=== PATIENT | female | born 1965 | race Caucasian/White ===

== ENCOUNTER → 2020-04-22 08:16 | Outpatient (CLI) | payer OTHER, SELFPAY ==
--- NOTE | ~2020-04-22 | MM_ITS ---
EXAMINATION: MM screening ricky BI w manuel HISTORY: Screening mammogram TECHNIQUE: Craniocaudal and mediolateral oblique 3-D tomosynthesis images were obtained and synthetic 2-D images were generated. Bilateral rotated lateral CC views CAD analysis was submitted and interpr eted. COMPARISON: 03/16/2019 diagnostic right digital mammogram and complete right breast ultrasound 8. 03/01/2019 bilateral digital screening mammogram 01/28/2018 diagnostic right digital mammogram and complete right breast ultrasound 01/23/2018, 01/04/2017, 12/16/2015 bilateral digital screening mammogram examinations BREAST PARENCHYMAL COMPOSITION: The breasts are heterogeneously dense, which may obscure small masses . FINDINGS: Approximately 2 cm mass in the inner aspect of the mid outer right breast, with halo sign, very possibly a cyst. Recommend diagnostic right mammogram and right breast ultrasound examination. Otherwise there is no evidence of suspicious mass, calcification, or architectural distortion to sugg est malignancy in either breast. There has been no suspicious interval change. IMPRESSION: 1. Approximately 2 cm probable cyst of the inner aspect of the outer mid right breast 2. Diagnostic right mammogram and right breast ultrasound examination are recommended. BI-RADS Category 0: Incomplete: Needs additional imaging evaluation. Reviewed, dictated and finalized at location A. CE CLERK IMPRESSION: 1. Approximately 2 cm probable cyst of the inner aspect of the outer mid right breast 2. Diagnostic right mammogram and right breast ultrasound examination are recom mended. BI-RADS Category 0: Incomplete: Needs additional imaging evaluation.
== END ==
PROVIDERS: PCP Family Medicine; Visit Provider Student in an Organized Health Care Education/Training Program
DX: Z12.31 Encounter for screening mammogram for malignant neoplasm of breast (principal); R92.8 Other abnormal and inconclusive findings on diagnostic imaging of breast
CPT/HCPCS: 77063; 77067

== ENCOUNTER → 2020-05-11 08:16 | Outpatient (CLI) | payer OTHER, SELFPAY ==
--- NOTE | ~2020-05-11 | MMUS_ITS ---
EXAMINATION: MM diagnostic mammo unilat RT, US breast RT complete HISTORY: Follow-up right breast mass TECHNIQUE: Additional 3-D tomosynthesis images of the right breast were performed and synthetic 2-D i mages were generated. CAD analysis was submitted and interpreted. High resolution right breast ultras ound was performed. COMPARISON: 04/22/2020 BREAST PARENCHYMAL COMPOSITION: The breasts are heterogenously dense, which may obscure small masses. FINDINGS: MAMMOGRAPHIC FINDINGS: There is a 2.3 cm mass in the upper outer quadrant of the right breast, middle third. No suspicious c alcifications or architectural distortion. ULTRASOUND: Right breast ultrasound: At 12:00, 1 cm from the nipple, there is a 3 mm cyst. At 6:00, 3 cm from the nipple, there is a 5 mm cyst. At 10:00, 4 cm from the nipple, there is a 7 mm complicated cyst. At 1 1:00, 4 cm from the nipple there is a 2.1 cm cyst. There the areola there is a 4 mm oval hypoechoic m ass with low level internal echoes, likely complicated cyst. IMPRESSION: 1. Probable benign right breast masses. 2. Recommend 6 month follow-up right breast ultrasound BI-RADS category 3, probably benign findings. Reviewed, dictated and finalized at location A. IMPRESSION: 1. Probable benign right breast masses. 2. Recommend 6 month follow-up right breast ultrasound BI-RADS category 3, probably benign findings.
== END ==
PROVIDERS: PCP Family Medicine; Visit Provider Student in an Organized Health Care Education/Training Program
DX: R92.8 Other abnormal and inconclusive findings on diagnostic imaging of breast (principal)
CPT/HCPCS: 76641; 77065

== ENCOUNTER → 2020-11-04 09:08 | Outpatient (CLI) | payer OTHER, SELFPAY ==
--- NOTE | ~2020-11-04 | US_ITS ---
EXAMINATION: US pelvic complete w TV DATE: 11/04/2020 09:34 INDICATION: Pelvic and perineal pain. Left lower quadrant pain. Comparison:Ultrasound dated 07/31/2018 TECHNIQUE: Multiple transabdominal and endovaginal sonographic images of the pelvis performed. FINDINGS: The uterus measures 8.4 x 4.7 x 5.2 cm. Uterus contains fibroids, largest measuring 3.4 cm. The endometrial complex measures 5 mm. There is fluid in the endometrium with echogenic debris. The right ovary measures 3.2 x 1.5 x 1.7 cm and the left ovary measures 2.6 x 1.4 x 1.9 cm. There ar e small follicles in each ovary. Normal doppler signal in both ovaries. There is no free fluid in the pelvis. There are no abnormal masses seen on either side. IMPRESSION: 1. Complex fluid in the endometrium without significant endometrial thickening, nonspecific. 2: Uterine fibroids, largest measuring up to 3.4 cm. Reviewed, dictated and finalized at location A.
== END ==
PROVIDERS: PCP Family Medicine; Visit Provider Student in an Organized Health Care Education/Training Program
DX: R10.2 Pelvic and perineal pain (principal); D25.9 Leiomyoma of uterus, unspecified
CPT/HCPCS: 76830; 76856

== ENCOUNTER → 2020-11-13 14:14 | Outpatient (CLI) | payer OTHER, SELFPAY ==
--- NOTE | ~2020-11-13 | US_ITS ---
US breast RT complete DATE: 11/13/2020 14:56 INDICATION: 6 month follow up of probable benign breast lesions TECHNIQUE: Real time imaging of complete right breast COMPARISON: 05/11/2020 Diagnostic right mammogram and complete right breast ultrasound FINDINGS: 12:00 1 cm from nipple: 8 x 8.2 x 7.7 mm simple cyst 10:00 4 cm from nipple: 5.7 x 5.5 x 5.8 mm cyst 11:00 4 cm from nipple: 8.6 x 7.3 x 9.3 mm cyst Subareolar 3.6 x 3.4 cyst No suspicious mass or shadowing is detected. IMPRESSION: BIRADS Category 2: Benign RECOMMENDATION: Routine mammographic screening Reviewed, dictated and finalized at Location A. Reviewed, dictated and finalized at location A.
== END ==
PROVIDERS: Visit Provider Student in an Organized Health Care Education/Training Program
DX: R92.8 Other abnormal and inconclusive findings on diagnostic imaging of breast (principal)
CPT/HCPCS: 76641

== ENCOUNTER → 2020-12-29 14:09 | Outpatient (CLI) | payer OTHER, SELFPAY ==
--- NOTE | ~2020-12-29 | US_ITS ---
EXAMINATION: US thyroid EXAM DATE: 12/29/2020 14:21 INDICATION: Nontoxic goiter, unspecified TECHNIQUE: Multiple grayscale and Doppler images of the thyroid were obtained (by a technologist who performed the scan) and subsequently reviewed. Individual nodules and recommendations may be reporte d in accordance with TI-RADS system as designated by the 2017 ACR White Paper TI-RADS committee. The re is no prior study for comparison. FINDINGS: The right thyroid lobe measures 4.4 x 1.8 x 1.8 cm, the left measuring 4.4 x 1.7 x 1.5 cm. There is h omogeneous thyroid parenchyma with expected amount of vascularity. No focal nodules identified. IMPRESSION: 1. Mild thyromegaly. Reviewed, dictated and finalized at location A. IMPRESSION: 1. Mild thyromegaly.
== END ==
PROVIDERS: PCP Family Medicine; Visit Provider Family Medicine
DX: E04.9 Nontoxic goiter, unspecified (principal)
CPT/HCPCS: 76536

== ENCOUNTER → 2021-05-28 17:41 | Outpatient (CLI) | payer OTHER, SELFPAY ==
--- NOTE | ~2021-05-28 | MM_ITS ---
EXAMINATION: MM screening ricky BI w manuel HISTORY: Screening TECHNIQUE: Craniocaudal and mediolateral oblique 3-D tomosynthesis images were obtained and synthetic 2-D images were generated. CAD analysis was submitted and interpreted. COMPARISON: Comparison to multiple prior studies sequentially, with oldest reviewed study dated 12/27. BREAST PARENCHYMAL COMPOSITION: The breasts are heterogeneously dense, which may obscure small masses . FINDINGS: There is no evidence of suspicious mass, calcification, or architectural distortion to sugg est malignancy in either breast. There has been no suspicious interval change. IMPRESSION: 1. No mammographic evidence of malignancy. 2. Recommend routine screening mammography in one year. BI-RADS Category 1: Negative Reviewed, dictated and finalized at location A.
== END ==
PROVIDERS: PCP Family Medicine; Visit Provider Student in an Organized Health Care Education/Training Program
DX: Z12.31 Encounter for screening mammogram for malignant neoplasm of breast (principal)
CPT/HCPCS: 77063; 77067

== ENCOUNTER → 2022-02-19 13:42 | Outpatient (CLI) | payer OTHER, SELFPAY ==
--- NOTE | ~2022-02-19 | XR_ITS ---
Clinical Indication: Chest wall pain PA and lateral views of the chest: Comparison: 02/01/2015 Findings: The lungs are clear, without evidence of focal consolidation or pleural effusion. Cardiome diastinal silhouette is within normal limits. Bones and soft tissues are unremarkable. Impression: Normal chest. Reviewed, dictated and finalized at location . 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
== END ==
PROVIDERS: PCP Family Medicine; Visit Provider Family Medicine
DX: R07.89 Other chest pain (principal)
CPT/HCPCS: 71046

== ENCOUNTER → 2022-11-08 16:10 | Outpatient (CLI) | payer OTHER, SELFPAY ==
--- NOTE | ~2022-11-08 | MM_ITS ---
EXAMINATION: MM screening ricky BI w manuel HISTORY: Screening mammogram TECHNIQUE: Craniocaudal and mediolateral oblique 3-D tomosynthesis images were obtained and synthetic 2-D images were generated. Bilateral rotated lateral CC views. CAD analysis was submitted and interp reted. COMPARISON: 05/28/2021 bilateral screening mammogram 11/13/2020 complete right breast ultrasound 05/11/2020 diagnostic right mammogram and complete right breast ultrasound 04/22/2020 bilateral screening mammogram BREAST PARENCHYMAL COMPOSITION: The breasts are heterogeneously dense, which may obscure small masses . FINDINGS: There is no evidence of suspicious mass, calcification, or architectural distortion to sugg est malignancy in either breast. There has been no suspicious interval change. IMPRESSION: 1. No mammographic evidence of malignancy. 2. Recommend routine screening mammography in one year. BI-RADS Category 1: Negative Reviewed, dictated and finalized at location A.
== END ==
PROVIDERS: PCP Family Medicine; Visit Provider Family Medicine
DX: Z12.31 Encounter for screening mammogram for malignant neoplasm of breast (principal)
CPT/HCPCS: 77063; 77067

== ENCOUNTER 2024-02-13 12:47 | Outpatient (CLI) | payer OTHER, SELFPAY ==
--- NOTE | ~2024-02-13 | MM_ITS ---
EXAMINATION: MM screening ricky BI w manuel HISTORY: Screening TECHNIQUE: Craniocaudal and mediolateral oblique 3-D tomosynthesis images were obtained and synthetic 2-D images were generated. CAD analysis was submitted and interpreted. COMPARISON: Comparison to multiple prior studies sequentially, with oldest reviewed study dated 07/2019. BREAST PARENCHYMAL COMPOSITION: Dense: The breasts are heterogeneously dense, which may obscure small masses FINDINGS: There is no evidence of suspicious mass, calcification, or architectural distortion to sugg est malignancy in either breast. There has been no suspicious interval change. IMPRESSION: 1. No mammographic evidence of malignancy. 2. Recommend routine screening mammography in one year. BI-RADS Category 1: Negative Reviewed, dictated and finalized at location B. 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
== END 2024-02-13 12:48 | disposition home or self-care (01) ==
LOC: MICIMG 12:47
PROVIDERS: PCP Family Medicine; Visit Provider Nurse Practitioner Family
DX: Z12.31 Encounter for screening mammogram for malignant neoplasm of breast (principal)
CPT/HCPCS: 77063; 77067

== ENCOUNTER 2024-05-24 14:37 | Outpatient (CLI) | payer OTHER, SELFPAY ==
--- NOTE | ~2024-05-24 | DEXA_ITS ---
Bone Density Report Name: RAJWINDER ARRIAZA Age: 58 Sex: Female Ethnicity: White Date of : 1965 Indication: osteopenia; height loss; Referring Provider: MICHAEL, KWASI Valenzuela Study: Bone densitometry was performed. Exam Date: May 24, 2024 Accession number: [id number] Bone Density: Region BMD T-score Z-score Classification AP Spine(L1-L4) 0.786 -2.4 -1.1 Osteopenia Femoral Neck (Left) 0.744 -0.9 0.3 Normal Total Hip (Left) 0.945 0.0 0.9 Normal Femoral Neck (Right) 0.689 -1.4 -0.2 Osteopenia Total Hip (Right) 0.923 -0.2 0.7 Normal Total Hip Mean 0.934 -0.1 0.8 Normal World Health Organization criteria for BMD impression classify patients as: Normal (T-score at or above -1.0), Osteopenia (T-score between -1.0 and -2.5), or Osteoporosis (T-score at or below -2.5). 10-year Fracture Risk(1): Major Osteoporotic Fracture 7.5% Hip Fracture 0.6% Reported Risk Factors: [place] (), Neck BMD=0.689, BMI=25.7 (1) FRAX(R) Version 3.08. Fracture probability calculated for an untreated patient. Fracture probability may be lower if the patient has received treatment. Previous Exams: Region Exam Age BMD T-score BMD Change BMD Change Date g/cm2 vs Baseline vs Previous AP Spine (L1-L4) 05/24/2024 58 0.786 -2.4 -0.035 (-4.3%) -0.035 (-4.3%) 05/24/2024 58 0.822 -2.0 *Denotes significance at 95% confidence level, LSC for AP Spine = 0.022 g/cm2 Clinical Information Provided by Patient: Has used the following medications: Vitamin D, Calcium Patient maximum height was 64.0 Menopause Age: 51 Drinks caffeinated beverages Onset of menses at age 14 Number of children 4 Impression: The patient has low bone mass, based on the Total Spine T-score. The patient has an estimated ten-year risk of hip fracture of 0.6% and an estimated ten-year risk of major fracture of 7.5%, based on the WHO FRAX algorithm. The BMD for the AP Spine (L1-L4) decreased, changing by -4.3% since the last DXA exam. Discussion: BONE DENSITY IS LOW AT ONE OR MORE SKELETAL SITES. This patient's lowest T-score is low at one or more skeletal sites. It meets the World Health Organization's (WHO) criteria for ?low bone mass? (T-score between -1.0 and -2.5). The patient's 10-year risk of fracture as calculated by FRAX is less than the threshold where pharmacological therapy is recommended by the National Osteoporosis Foundation (NOF). However, all treatment decisions require clinical judgment and consideration of individual patient factors, including patient preferences, comorbidities, previous drug use, risk factors not captured in the FRAX model (e.g., frailty, falls, vitamin D deficiency, increased bone turnover, interval significant decline in bone density) and possible under or overestimation of fracture risk by FRAX. The patient should follow a healthful lifestyle (good nutrition with adequate calcium and vitamin D, and appropriate weight-bearing exercise). Follow-Up: Consider repeating this study in 2 years to reassess this patient's status, or sooner if there is some new clinical indication. Reported by: ASPEN on 05/24/2024 3:17:00 PM. Reviewed, dictated and finalized at location AJenna BLAS
--- OUTSIDE RECORDS SUMMARY | 2024-05-24 16:06 | XMS_ITS | Data Portability ---
Author Organization [place] [employer], Main Office Address [address] [place] [id number] Assessment Encounter Date Assessment Date Assessment LastModified by Organization Details LastModified Time 03/20/2023 03/20/2023 sternal pain, no t severe. Suspect costochondritis most likely. Recommend nonsteroidal pain medications. CT scan if condition worsens. Follow up p.r.n. [email or web address] Not available 03/20/2023 10:56:40 Plan of Treatment Reminders Order Date Submit Date Provider Last Modified By Organization Details Last Modified Time Details Appointments None recorded. Lab TSH + free T4, serum 2024 025 FOSTER [facility], [address], [place], [address], 5 14:09:41 CBC w/ auto diff 2024 025 FOSTER [facility], [address], [place], [address], 5 14:09:42 iron + total iron-claudia ng capacity (TIBC), serum 2024 025 FOSTER [facility], [address], [place], [address], 5 14:09:39 ferritin, serum or plasma 2024 025 FOSTER [facility], [address], [place], [address], 5 14:09:47 lipid panel, serum 2024 025 FOSTER [facility], [address], [place], [address], 5 14:09:46 hepatic function panel, serum 2024 025 [facility]OST[facility], [address], [place], [address], 5 14:09:44 CMP, serum or plasma 2024 025 FOSTER [facility], [address], [place], [address], 5 14:09:43 HbA1c (hemoglobi n A1c), blood 2024 025 [facility]TA [facility], [address], [place], [address], 5 14:09:48 vitamin D, 25-hydroxy , total, serum 2024 025 DELTA [facility], [address], [place], [address], 5 14:09:49 hepatitis C virus Ab, serum 2024 025 [email or web address] [facility], [address], [place], [address], 5 08:22:02 TSH, serum or plasma 2023 024 [email or web address] Not available 4 08:34:00 lipid panel, serum 2023 024 FOSTER Not available 4 06:38:41 hepatic function panel, serum 2023 024 FOSTER Not available 4 06:38:42 BMP, serum or plasma 2023 024 FOSTER Not available 4 06:38:40 vitamin D, 25-hydroxy , total, serum 2023 FOSTER Not available 4 06:38:44 ferritin, serum or plasma 2023 FOSTER Not available 4 06:38:45 iron + total iron-claudia ng capacity (TIBC), serum 2023 FOSTER Not available 4 06:38:43 CBC w/ auto diff 2023 FOSTER Not available 4 06:38:39 Referral general surgeon referral - Please call patient to schedule appointmen t. 2023 [email or web address] Aston Kruger MD, [address] [facility], [facility] [address], [place], [address], 4 13:58:52 Procedures None recorded. Surgeries None recorded. Imaging DEXA - *Please call pt to schedule* 2023 [email or web address] [place] [address] (Imaging), [address] [place] [address] [address], [address], 4 09:16:14 Medication Orders None recorded. Patient TargetsNo targets recorded. Patient InstructionsNo instructions recorded. Reason for Referral General Surgeon Referral for Lipoma of skin Please call patient to schedule appointment. Referring Physician: Aletha Camargo, Family Medicine, Encounter Date: 03/05/2023 Results Created Date Observation Date Name Description Value Unit Range Abnormal Flag Note LastModifiedBy Organization Detail LastModifiedTime 02/20/20 22 02/20/2022 VITAM IN D, 25-HY DROXY vitamin D, 25-hydroxy 36.9 NG/mL 30.0-1 00.0 Vitam in D defic iency has been defin ed by the Insti tute of Medic ine and an Endoc rine Socie ty pract ice guide line as a level of serum 25-OH vitam in D less than 20 ng/mL (1,2) . The Endoc rine Socie ty went on to furth er defin e vitam in D insuf ficie ncy as a level betwe en 21 and 29 ng/mL (2). 1. IOM (Inst itute of Medic ine). 2010. Dieta ry refer ence intak es for calci um and D. Luci euceda [place]: [facility] . 2. Live melendez MF, Nicho morales [place], Papito off-F errar i KRAUS, et al. Evalu ation , treat ment, and preve ntion of vitam in D defic iency : an Endoc rine Socie ty clini megan pract ice guide line. JCEM. 2010; 96(7) :1911 -30. Not Available [facility] ([facility]) [address] [place], [address], 02/20/2022 08:17:10 02/20/20 22 02/20/2022 TSH TSH 0.776 uIU/m L 0.450- 4.500 Not Available [facility] ([facility]) [address] [place], [address], 02/20/2022 08:17:10 02/20/20 22 02/20/2022 LIPID PANEL cholesterol, total 232 mg/dL 100-19 9 above high normal Not Available [facility] ([facility]) [address] [place], [address], 02/20/2022 08:17:09 02/20/20 22 02/20/2022 LIPID PANEL triglyceride s 154 mg/dL 0-149 above high normal Not Available [facility] ([facility]) [address] [place], [address], 02/20/2022 08:17:09 02/20/20 22 02/20/2022 LIPID PANEL HDL cholesterol 63 mg/dL >39 Not Available [facility] ([facility]) [address] [place], [address], 02/20/2022 08:17:09 02/20/20 22 02/20/2022 LIPID PANEL VLDL cholesterol megan 27 mg/dL 5-40 Not Available [facility] ([facility]) [address] [facility] [place], [address], 02/20/2022 08:17:09 02/20/20 22 02/20/2022 LIPID PANEL LDL chol calc ([facility]) 142 mg/dL 0-99 above high normal Not Available [facility] ([facility]) [address] [place], [address], 02/20/2022 08:17:09 02/20/20 22 02/20/2022 LIPID PANEL comment: crnp Not Available [facility] ([facility]) [address] [place], [address], 02/20/2022 08:17:09 02/20/20 22 02/20/2022 BASIC METAB OLIC PANEL (8) glucose 97 mg/dL 70-99 Not Available [facility] ([facility]) [address] [place], [address], 02/20/2022 08:17:09 02/20/20 22 02/20/2022 BASIC METAB OLIC PANEL (8) BUN 12 mg/dL 6-24 Not Available [facility] ([facility]) [address] [place], [address], 02/20/2022 08:17:09 02/20/20 22 02/20/2022 BASIC METAB OLIC PANEL (8) creatinine 0.65 mg/dL 0.57-1 .00 Not Available [facility] ([facility]) [address] [place], [address], 02/20/2022 08:17:09 02/20/20 22 02/20/2022 BASIC METAB OLIC PANEL (8) eGFR 103 mL/mi n/1.7 3 >59 Not Available [facility] ([facility]) [address] [place], [address], 02/20/2022 08:17:09 02/20/20 22 02/20/2022 BASIC METAB OLIC PANEL (8) BUN/creatini ne ratio 18 9-23 Not Available [facility] ([facility]) [address] [facility], [place], [address], 02/20/2022 08:17:09 02/20/20 22 02/20/2022 BASIC METAB OLIC PANEL (8) sodium 142 mmol/ L 134-14 4 Not Available [facility] ([facility]) [address] [facility], [place], [address], 02/20/2022 08:17:09 02/20/20 22 02/20/2022 BASIC METAB OLIC PANEL (8) potassium 4.5 mmol/ L 3.5-5. 2 Not Available [facility] ([facility]) [address] [facility], [place], [address], 02/20/2022 08:17:09 02/20/20 22 02/20/2022 BASIC METAB OLIC PANEL (8) chloride 103 mmol/ L 96-106 Not Available [facility] ([facility]) [address] [facility], [place], [address], 02/20/2022 08:17:09 02/20/20 22 02/20/2022 BASIC METAB OLIC PANEL (8) carbon dioxide, total 27 mmol/ L 20-29 Not Available [facility] ([facility]) [address] [place], [address], 02/20/2022 08:17:09 02/20/20 22 02/20/2022 BASIC METAB OLIC PANEL (8) calcium 9.3 mg/dL 8.7-10 .2 Not Available [facility] ([facility]) [address] [place], [address], 02/20/2022 08:17:09 02/20/20 22 02/20/2022 CBC/D IFF AMBIG UOUS DEFAU LT WBC 4.4 x10e3 /uL 3.4-10 .8 Not Available [facility] ([facility]) [address] [facility], [place], [address], 02/20/2022 08:17:08 02/20/20 22 02/20/2022 CBC/D IFF AMBIG UOUS DEFAU LT RBC 4.21 x10e6 /uL 3.77-5 .28 Not Available [facility] ([facility]) [address] [facility], [place], [address], 02/20/2022 08:17:08 02/20/20 22 02/20/2022 CBC/D IFF AMBIG UOUS DEFAU LT hemoglobin 13.1 g/dL 11.1-1 5.9 Not Available [facility] ([facility]) [address] [facility], [place], [address], 02/20/2022 08:17:08 02/20/20 22 02/20/2022 CBC/D IFF AMBIG UOUS DEFAU LT hematocrit 39.0 % 34.0-4 6.6 Not Available [facility] ([facility]) [address] [facility], [place], [address], 02/20/2022 08:17:08 02/20/20 22 02/20/2022 CBC/D IFF AMBIG UOUS DEFAU LT MCV 93 fL 79-97 Not Available [facility] ([facility]) [address] [facility], [place], [address], 02/20/2022 08:17:08 02/20/20 22 02/20/2022 CBC/D IFF AMBIG UOUS DEFAU LT MCH 31.1 pg 26.6-3 3.0 Not Available [facility] ([facility]) [address] [facility], [place], [address], 02/20/2022 08:17:08 02/20/20 22 02/20/2022 CBC/D IFF AMBIG UOUS DEFAU LT MCHC 33.6 g/dL 31.5-3 5.7 Not Available [facility] ([facility]) [address] [facility], [place], [address], 02/20/2022 08:17:08 02/20/20 22 02/20/2022 CBC/D IFF AMBIG UOUS DEFAU LT RDW 12.7 % 11.7-1 5.4 Not Available [facility] ([facility]) [address] [facility], [place], [address], 02/20/2022 08:17:08 02/20/20 22 02/20/2022 CBC/D IFF AMBIG UOUS DEFAU LT platelets 254 x10e3 /uL 150-45 0 Not Available [facility] ([facility]) [address] [facility], [place], [address], 02/20/2022 08:17:08 02/20/20 22 02/20/2022 CBC/D IFF AMBIG UOUS DEFAU LT neutrophils 51 % not estab. Not Available [facility] ([facility]) [address] [facility], [place], [address], 02/20/2022 08:17:08 02/20/20 22 02/20/2022 CBC/D IFF AMBIG UOUS DEFAU LT lymphs 34 % not estab. Not Available [facility] ([facility]) [address] [facility], [place], [address], 02/20/2022 08:17:08 02/20/20 22 02/20/2022 CBC/D IFF AMBIG UOUS DEFAU LT monocytes 9 % not estab. Not Available [facility] ([facility]) [address] [facility], [place], [address], 02/20/2022 08:17:08 02/20/20 22 02/20/2022 CBC/D IFF AMBIG UOUS DEFAU LT eos 4 % not estab. Not Available [facility] ([facility]) [address] [facility], [place], [address], 02/20/2022 08:17:08 02/20/20 22 02/20/2022 CBC/D IFF AMBIG UOUS DEFAU LT basos 2 % not estab. Not Available [facility] ([facility]) [address] [facility], [place], [address], 02/20/2022 08:17:08 02/20/20 22 02/20/2022 CBC/D IFF AMBIG UOUS DEFAU LT immature cells crnp Not Available [facility] ([facility]) [address] [facility], [place], [address], 02/20/2022 08:17:08 02/20/20 22 02/20/2022 CBC/D IFF AMBIG UOUS DEFAU LT neutrophils (absolute) 2.3 x10e3 /uL 1.4-7. 0 Not Available [facility] ([facility]) [address] [facility], [place], [address], 02/20/2022 08:17:08 02/20/20 22 02/20/2022 CBC/D IFF AMBIG UOUS DEFAU LT lymphs (absolute) 1.5 x10e3 /uL 0.7-3. 1 Not Available [facility] ([facility]) [address] [facility], [place], [address], 02/20/2022 08:17:08 02/20/20 22 02/20/2022 CBC/D IFF AMBIG UOUS DEFAU LT monocytes(ab solute) 0.4 x10e3 /uL 0.1-0. 9 Not Available [facility] ([facility]) [address] [facility], [place], [address], 02/20/2022 08:17:08 02/20/20 22 02/20/2022 CBC/D IFF AMBIG UOUS DEFAU LT eos (absolute) 0.2 x10e3 /uL 0.0-0. 4 Not Available [facility] ([facility]) [address] [facility], [place], [address], 02/20/2022 08:17:08 02/20/20 22 02/20/2022 CBC/D IFF AMBIG UOUS DEFAU LT baso (absolute) 0.1 x10e3 /uL 0.0-0. 2 Not Available [facility] ([facility]) [address] [facility], [place], [address], 02/20/2022 08:17:08 02/20/20 22 02/20/2022 CBC/D IFF AMBIG UOUS DEFAU LT immature granulocytes 0 % not estab. Not Available [facility] ([facility]) [address] [facility], [place], [address], 02/20/2022 08:17:08 02/20/20 22 02/20/2022 CBC/D IFF AMBIG UOUS DEFAU LT immature grans (abs) 0.0 x10e3 /uL 0.0-0. 1 Not Available [facility] ([facility]) [address] [facility], [place], [address], 02/20/2022 08:17:08 02/20/20 22 02/20/2022 CBC/D IFF AMBIG UOUS DEFAU LT NRBC crnp Not Available [facility] ([facility]) [address] [place], [address], 02/20/2022 08:17:08 02/20/20 22 02/20/2022 CBC/D IFF AMBIG UOUS DEFAU LT hematology comments: crnp A hand- writt en panel /prof iain was recei tammi from your offic e. In accor dance with the [facility] Ambig uous Test Code Polic y dated August 2002, we have assig pito CBC with Diffe danielle al/Pl denise t, Test Code #[address]. If this is not the testi ng you wishe d to recei ve on this speci men, pleas e conta ct the [facility] Clien t Inqui ry/ Techn ical Servi rashida Azeem tmeshree to marlon fy the test order . We appre ciate your busin ess. Not Available [facility] ([facility]) [address] [place], [address], 02/20/2022 08:17:08 02/20/20 22 02/20/2022 FE+TI BC+FE R iron bind.cap.(TI BC) 257 ug/dL 250-45 0 Not Available [facility] ([facility]) [address] [place], [address], 02/20/2022 08:17:07 02/20/20 22 02/20/2022 FE+TI BC+FE R UIBC 126 ug/dL 131-42 5 below low normal Not Available [facility] ([facility]) [address] [place], [address], 02/20/2022 08:17:07 02/20/20 22 02/20/2022 FE+TI BC+FE R iron 131 ug/dL 27-159 Not Available [facility] ([facility]) [address] [place], [address], 02/20/2022 08:17:07 02/20/20 22 02/20/2022 FE+TI BC+FE R iron saturation 51 % 15-55 Not Available [facility] ([facility]) [address] [place], [address], 02/20/2022 08:17:07 02/20/20 22 02/20/2022 FE+TI BC+FE R ferritin 101 NG/mL 15-150 Not Available [facility] ([facility]) [address] [place], [address], 02/20/2022 08:17:07 05/04/19 23 05/04/2022 IRON AND TIBC iron bind.cap.(TI BC) 306 ug/dL 250-45 0 Not Available [facility] ([facility]) [address] [facility], [place], [address], 05/04/2022 08:20:26 05/04/19 23 05/04/2022 IRON AND TIBC UIBC 180 ug/dL 131-42 5 Not Available [facility] ([facility]) [address] [facility], [place], [address], 05/04/2022 08:20:26 05/04/19 23 05/04/2022 IRON AND TIBC iron 126 ug/dL 27-159 Not Available [facility] ([facility]) [address] [facility], [place], [address], 05/04/2022 08:20:26 05/04/19 23 05/04/2022 IRON AND TIBC iron saturation 41 % 15-55 Not Available [facility] ([facility]) [address] [facility], [place], [address], 05/04/2022 08:20:26 02/11/20 23 02/12/2023 URINA LYSIS , COMPL ETE W/REF ИВАН TO CULTU RE color YELLOW yellow normal Not Available [address], [address], 02/13/2023 00:04:10 02/11/20 23 02/12/2023 URINA LYSIS , COMPL ETE W/REF ИВАН TO CULTU RE appearance CLEAR clear normal Not Available [facility] [address], [address], 02/13/2023 00:04:10 02/11/20 23 02/12/2023 URINA LYSIS , COMPL ETE W/REF ИВАН TO CULTU RE specific gravity 1.010 1.001- 1.035 normal Not Available [address], [address], 02/13/2023 00:04:10 02/11/20 23 02/12/2023 URINA LYSIS , COMPL ETE W/REF ИВАН TO CULTU RE pH 6.5 5.0-8. 0 normal Not Available [address], [address], 02/13/2023 00:04:10 02/11/20 23 02/12/2023 URINA LYSIS , COMPL ETE W/REF ИВАН TO CULTU RE glucose NEGATI VE negati ve normal Not Available [address], [address], 02/13/2023 00:04:10 02/11/20 23 02/12/2023 URINA LYSIS , COMPL ETE W/REF ИВАН TO CULTU RE bilirubin NEGATI VE negati ve normal Not Available [address], [address], 02/13/2023 00:04:10 02/11/20 23 02/12/2023 URINA LYSIS , COMPL ETE W/REF ИВАН TO CULTU RE ketones NEGATI VE negati ve normal Not Available [address], [address], 02/13/2023 00:04:10 02/11/20 23 02/12/2023 URINA LYSIS , COMPL ETE W/REF ИВАН TO CULTU RE occult blood 1+ negati ve abnormal Not Available [address], [address], 02/13/2023 00:04:10 02/11/20 23 02/12/2023 URINA LYSIS , COMPL ETE W/REF ИВАН TO CULTU RE protein NEGATI VE negati ve normal Not Available [address], [address], 02/13/2023 00:04:10 02/11/20 23 02/12/2023 URINA LYSIS , COMPL ETE W/REF ИВАН TO CULTU RE nitrite POSITI VE negati ve abnormal Not Available [facility] [address], [place], [address], 02/13/2023 00:04:10 02/11/20 23 02/12/2023 URINA LYSIS , COMPL ETE W/REF ИВАН TO CULTU RE leukocyte esterase 2+ negati ve abnormal Not Available [address], [address], 02/13/2023 00:04:10 02/11/20 23 02/12/2023 URINA LYSIS , COMPL ETE W/REF ИВАН TO CULTU RE WBC 40-60 /hpf < or = 5 abnormal Not Available [address], [address], 02/13/2023 00:04:10 02/11/20 23 02/12/2023 URINA LYSIS , COMPL ETE W/REF ИВАН TO CULTU RE RBC 3-10 /hpf < or = 2 abnormal Not Available [address], [address], 02/13/2023 00:04:10 02/11/20 23 02/12/2023 URINA LYSIS , COMPL ETE W/REF ИВАН TO CULTU RE squamous epithelial cells 0-5 /hpf < or = 5 Not Available [address], [address], 02/13/2023 00:04:10 02/11/20 23 02/12/2023 URINA LYSIS , COMPL ETE W/REF ИВАН TO CULTU RE bacteria MODERA TE /hpf none seen abnormal Not Available [address], [address], 02/13/2023 00:04:10 02/11/20 23 02/12/2023 URINA LYSIS , COMPL ETE W/REF ИВАН TO CULTU RE hyaline cast 0-5 /lpf none seen abnormal Not Available [address], [address], 02/13/2023 00:04:10 02/11/20 23 02/12/2023 URINA LYSIS , COMPL ETE W/REF ИВАН TO CULTU RE note This urine was michael zed for the prese nce of WBC, RBC, bacte trisha, casts , and other forme d eleme nts. Only those eleme nts seen were repor padmini. Not Available [facility] [address] [address] [place], [address], 02/13/2023 00:04:10 02/11/20 23 02/12/2023 URINA LYSIS , COMPL ETE W/REF ИВАН TO CULTU RE copy(ies) sent to: [facility] [address] [place] [address] Not Available [facility] [address] [address] [place], [address], 02/13/2023 00:04:10 02/11/20 23 02/12/2023 REFLE XIVE URINE CULTU RE reflexive urine culture CULTU RE INDIC ATED - RESUL TS TO FOLLO W Not Available [facility] [address] [address] [address], [place], [address], 02/13/2023 00:04:12 02/11/20 23 02/12/2023 REFLE XIVE URINE CULTU RE copy(ies) sent to: [facility] [address] [place] [address] Not Available [facility] [address] [address] [address], [place], [address], 02/13/2023 00:04:12 02/11/20 23 02/12/2023 CLIEN T EDUCA TION TRACK ING client education tracking The Requi sitio n we recei tammi did not inclu de a [facility] accou nt numbe r. To preve nt delay s in testi ng and proce ssing of your order s pleas e provi de the follo wing infor matio n with every order submi tted: [facility] accou nt numbe r and accou nt name Clsweta t addre ss Clien t phone and fax numbe r NPI numbe r of order ing physi fauzia along with the physi fauzia name. Not Available [facility] [address] [address], [place], [address], 02/13/2023 00:04:13 02/11/20 23 02/12/2023 CLSWETA T EDUCA TION TRACK ING copy(ies) sent to: [facility] [address] [place] [address] Not Available [facility] [place] [address] [address], [place], [address], 02/13/2023 00:04:13 02/11/20 23 02/12/2023 CULTU RE, URINE , ROUTI NE culture, urine, routine SEE NOTE abnormal CULTU RE, URINE , ROUTI NE Micro Numbe r: [id number] Test Statu s: Final Speci men Sourc e: Urine Speci men Quali ty: Adequ ate Resul t: Great er than 100,0 00 CFU/m L of Esche kusum a coli COMME NT: Addit ional non-p redom inati ng organ ism(s ) isola padmini. These organ isms, commo nly found on exter nal and inter nal genit shayan, are consi dered colon izers . No furth er testi ng perfo rmed. E.col i ----- ----- ----- - INT VERNON AMOX/ CLAVU LANAT E S <=2 AMP/S ULBAC PEPPER S <=2 CEFAZ EDI NR <=4 2 CEFEP SHILPA S <=0.1 2 CEFTA ZIDIM E S <=1 CEFTR IAXON E S <=0.2 5 CIPRO FLOXA MINH S <=0.0 6 GENTA MICIN S <=1 IMIPE NEM S <=0.2 5 LEVOF LOXAC IN S <=0.1 2 MEROP ENEM S <=0.2 5 NITRO FURAN TOIN S <=16 PIP/T AZOBA CTAM S <=4 TRIME THOPR IM/LESTER LFA S <=20 S=Trish cepti ble I=Int ermed iate R=Res istan t * = Not Teste d NR = Not Repor padmini NN = See Thera py Comme nts THERA PY COMME NTS Note 1: For infec tions other than uncom plica padmini UTI cause d by E. coli, K. pneum oniae or P. mirab ilis: Cefaz edi is resis tant if VERNON > or = 8 mcg/m L. (Dist ingui shing susce ptibl e versu s inter media te for isola twyla with VERNON < or = 4 mcg/m L requi res addit ional testi ng.) Note 2: For uncom plica padmini UTI cause d by E. coli, K. pneum oniae or P. mirab ilis: Cefaz edi is susce ptibl e if VERNON <32 mcg/m L and predi cts susce ptibl e to the oral agent s cefac yvette, cefdi justo, cefpo doxim e, cefpr ozil, cefur oxime , cepha lexin and lorac arbef . Not Available [facility] [address] [place], [address], 02/13/2023 00:04:13 02/11/20 23 02/12/2023 CULTU RE, URINE , ROUTI NE copy(ies) sent to: [facility] ) [address] [facility] [place] [address] Not Available [facility] [address] [place], [address], 02/13/2023 00:04:13 02/11/20 23 02/10/2023 urina lysis , dipst ick Leukocytes (reference range: negative christopher/ l) Small Not Available [facility] [address], [place], [address], 02/10/2023 13:54:39 02/11/20 23 02/10/2023 urina lysis , dipst ick Nitrite (reference rage: negative mg/dl) positi ve Not Available [address], [place], [address], 02/10/2023 13:54:39 02/11/20 23 02/10/2023 urina lysis , dipst ick Urobilinogen (reference range: 0.2-1 mg/dl) 0.2 Not Available [address], [place], [address], 02/10/2023 13:54:39 02/11/20 23 02/10/2023 urina lysis , dipst ick Protein (reference range: negative mg/dl) Negati ve Not Available [address], [place], [address], 02/10/2023 13:54:39 02/11/20 23 02/10/2023 urina lysis , dipst ick pH (reference range: 5-7) 6.5 Not Available [address], [place], [address], 02/10/2023 13:54:39 02/11/20 23 02/10/2023 urina lysis , dipst ick Blood (reference range: negative Donald/ l) Small Not Available [address], [place], [address], 02/10/2023 13:54:39 02/11/20 23 02/10/2023 urina lysis , dipst ick Specific [place] (reference range: 1.005-1.030) 1.015 Not Available [address], [place], [address], 02/10/2023 13:54:39 02/11/20 23 02/10/2023 urina lysis , dipst ick Ketone (reference range: negative mg/dl) Negati ve Not Available [address], [place], [address], 02/10/2023 13:54:39 02/11/20 23 02/10/2023 urina lysis , dipst ick Bilirubin (reference range: negative mg/dl) Negati ve Not Available [address], [place], [address], 02/10/2023 13:54:39 02/11/20 23 02/10/2023 urina lysis , dipst ick Glucose (reference range: negative mg/dl) Negati ve Not Available [address], [place], [address], 02/10/2023 13:54:39 02/11/20 23 02/10/2023 urina lysis , dipst ick Appearance Clear Not Available [address], [place], [address], 02/10/2023 13:54:39 02/11/20 23 02/10/2023 urina lysis , dipst ick Color Pale Yellow Not Available [address], [place], [address], 02/10/2023 13:54:39 03/07/19 24 03/07/2023 CBC/D IFF AMBIG UOUS DEFAU LT WBC 3.6 x10e3 /uL 3.4-10 .8 Not Available [facility] ([facility]) [address] [facility], [place], [address], 03/08/2023 06:38:38 03/07/19 24 03/07/2023 CBC/D IFF AMBIG UOUS DEFAU LT RBC 4.58 x10e6 /uL 3.77-5 .28 Not Available [facility] ([facility]) [address] [facility], [place], [address], 03/08/2023 06:38:38 03/07/1903/07/2023 CBC/D IFF AMBIG UOUS DEFAU LT hemoglobin 14.3 g/dL 11.1-1 5.9 Not Available [facility] ([facility]) [address] [facility], [place], [address], 03/08/2023 06:38:38 03/07/19 24 03/07/2023 CBC/D IFF AMBIG UOUS DEFAU LT hematocrit 42.3 % 34.0-4 6.6 Not Available [facility] ([facility]) [address], [place], [address], 03/08/2023 06:38:38 03/07/19 24 03/07/2023 CBC/D IFF AMBIG UOUS DEFAU LT MCV 92 fL 79-97 Not Available [facility] ([facility]) [address], [place], [address], 03/08/2023 06:38:38 03/07/19 24 03/07/2023 CBC/D IFF AMBIG UOUS DEFAU LT MCH 31.2 pg 26.6-3 3.0 Not Available [facility] ([facility]) [address] [facility], [place], [address], 03/08/2023 06:38:38 03/07/19 24 03/07/2023 CBC/D IFF AMBIG UOUS DEFAU LT MCHC 33.8 g/dL 31.5-3 5.7 Not Available [facility] ([facility]) [address] [facility], [place], [address], 03/08/2023 06:38:38 03/07/19 24 03/07/2023 CBC/D IFF AMBIG UOUS DEFAU LT RDW 12.2 % 11.7-1 5.4 Not Available [facility] ([facility]) [address], [place], [address], 03/08/2023 06:38:38 03/07/19 24 03/07/2023 CBC/D IFF AMBIG UOUS DEFAU LT platelets 227 x10e3 /uL 150-45 0 Not Available [facility] ([facility]) [address], [place], [address], 03/08/2023 06:38:38 03/07/19 24 03/07/2023 CBC/D IFF AMBIG UOUS DEFAU LT neutrophils 55 % not estab. Not Available [facility] ([facility]) [address], [place], [address], 03/08/2023 06:38:38 03/07/19 24 03/07/2023 CBC/D IFF AMBIG UOUS DEFAU LT lymphs 28 % not estab. Not Available [facility] ([facility]) [address], [place], [address], 03/08/2023 06:38:38 03/07/19 24 03/07/2023 CBC/D IFF AMBIG UOUS DEFAU LT monocytes 11 % not estab. Not Available [facility] ([facility]) [address], [place], [address], 03/08/2023 06:38:38 03/07/19 24 03/07/2023 CBC/D IFF AMBIG UOUS DEFAU LT eos 5 % not estab. Not Available [facility] ([facility]) [address], [place], [address], 03/08/2023 06:38:38 03/07/19 24 03/07/2023 CBC/D IFF AMBIG UOUS DEFAU LT basos 1 % not estab. 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 0 Not Available [facility] ([facility]) [address], [place], [address], 03/08/2023 06:38:38 03/07/19 24 03/07/2023 CBC/D IFF AMBIG UOUS DEFAU LT lymphs (absolute) 1.0 x10e3 /uL 0.7-3. 1 Not Available [facility] ([facility]) [address] [place], [address], 03/08/2023 06:38:38 03/07/19 24 03/07/2023 CBC/D IFF AMBIG UOUS DEFAU LT monocytes(ab solute) 0.4 x10e3 /uL 0.1-0. 9 Not Available [facility] ([facility]) [address] [place], [address], 03/08/2023 06:38:38 03/07/19 24 03/07/2023 CBC/D IFF AMBIG UOUS DEFAU LT eos (absolute) 0.2 x10e3 /uL 0.0-0. 4 Not Available [facility] ([facility]) [address] [place], [address], 03/08/2023 06:38:38 03/07/19 24 03/07/2023 CBC/D IFF AMBIG UOUS DEFAU LT baso (absolute) 0.0 x10e3 /uL 0.0-0. 2 Not Available [facility] ([facility]) [address] [place], [address], 03/08/2023 06:38:38 03/07/19 24 03/07/2023 CBC/D IFF AMBIG UOUS DEFAU LT immature granulocytes 0 % not estab. Not Available [facility] ([facility]) [address], [place], [address], 03/08/2023 06:38:38 03/07/19 24 03/07/2023 CBC/D IFF AMBIG UOUS DEFAU LT immature grans (abs) 0.0 x10e3 /uL 0.0-0. 1 Not Available [facility] ([facility]) [address], [place], [address], 03/08/2023 06:38:38 03/07/19 24 03/07/2023 CBC/D IFF AMBIG UOUS DEFAU LT NRBC MARKETING FINANCE SPECIALIST Not Available [facility] ([facility]) [address], [place], [address], 03/08/2023 06:38:38 03/07/19 24 03/07/2023 CBC/D IFF AMBIG UOUS DEFAU LT hematology comments: MARKETING FINANCE SPECIALIST A hand- writt en panel /prof timmons was recei tammi from your offic e. In accor dance with the [facility] Tesha gray Test Code Polic y dated August 2002, we have assig pito CBC with Diffashleigh santos al/Farooq yeung, Test Code #[address]. If this is not the testi ng you wishe d to recei ve on this speci men, pleas e conta ct the [facility] Clien t Inqui ry/ Techn ical Servi rashida Depar tment to marlon fy the test order . We appre ciate your busin ess. Not Available [facility] ([facility]) [address], [place], [address], 03/08/2023 06:38:38 03/07/19 24 03/08/2023 BASIC METAB OLIC PANEL (8) glucose 92 mg/dL 70-99 Not Available [facility] ([facility]) [address] [place], [address], 03/08/2023 06:38:40 03/07/19 24 03/08/2023 BASIC METAB OLIC PANEL (8) BUN 17 mg/dL 6-24 Not Available [facility] ([facility]) [address] [place], [address], 03/08/2023 06:38:40 03/07/19 24 03/08/2023 BASIC METAB OLIC PANEL (8) creatinine 0.69 mg/dL 0.57-1 .00 Not Available [facility] ([facility]) [address] [place], [address], 03/08/2023 06:38:40 03/07/19 24 03/08/2023 BASIC METAB OLIC PANEL (8) eGFR 101 mL/mi n/1.7 3 >59 Not Available [facility] ([facility]) [address] [place], [address], 03/08/2023 06:38:40 03/07/19 24 03/08/2023 BASIC METAB OLIC PANEL (8) BUN/creatini ne ratio 25 9-23 above high normal Not Available [facility] ([facility]) [address] [place], [address], 03/08/2023 06:38:40 03/07/19 24 03/08/2023 BASIC METAB OLIC PANEL (8) sodium 138 mmol/ L 134-14 4 Not Available [facility] ([facility]) [address] [place], [address], 03/08/2023 06:38:40 03/07/19 24 03/08/2023 BASIC METAB OLIC PANEL (8) potassium 4.5 mmol/ L 3.5-5. 2 Not Available [facility] ([facility]) [address] [place], [address], 03/08/2023 06:38:40 03/07/19 24 03/08/2023 BASIC METAB OLIC PANEL (8) chloride 100 mmol/ L 96-106 Not Available [facility] ([facility]) [address] [place], [address], 03/08/2023 06:38:40 03/07/19 24 03/08/2023 BASIC METAB OLIC PANEL (8) carbon dioxide, total 24 mmol/ L 20-29 Not Available [facility] ([facility]) [address] [place], [address], 03/08/2023 06:38:40 03/07/19 24 03/08/2023 BASIC METAB OLIC PANEL (8) calcium 9.7 mg/dL 8.7-10 .2 Not Available [facility] ([facility]) [address] [place], [address], 03/08/2023 06:38:40 03/07/19 24 03/08/2023 LIPID PANEL cholesterol, total 257 mg/dL 100-19 9 above high normal Not Available [facility] ([facility]) [address] [place], [address], 03/08/2023 06:38:41 03/07/19 24 03/08/2023 LIPID PANEL triglyceride s 88 mg/dL 0-149 Not Available [facility] ([facility]) [address] [place], [address], 03/08/2023 06:38:41 03/07/19 24 03/08/2023 LIPID PANEL HDL cholesterol 75 mg/dL >39 Not Available [facility] ([facility]) [address] [place], [address], 03/08/2023 06:38:41 03/07/19 24 03/08/2023 LIPID PANEL VLDL cholesterol megan 15 mg/dL 5-40 Not Available [facility] ([facility]) [address] [place], [address], 03/08/2023 06:38:41 03/07/19 24 03/08/2023 LIPID PANEL LDL chol calc ([facility]) 167 mg/dL 0-99 above high normal Not Available [facility] ([facility]) [address] [place], [address], 03/08/2023 06:38:41 03/07/19 24 03/08/2023 LIPID PANEL comment: MARKETING FINANCE SPECIALIST Not Available [facility] ([facility]) [address] [place], [address], 03/08/2023 06:38:41 03/07/19 24 03/08/2023 HEPAT IC FUNCT ION PANEL (7) protein, total 8.0 g/dL 6.0-8. 5 Not Available [facility] ([facility]) [address] [place], [address], 03/08/2023 06:38:42 03/07/19 24 03/08/2023 HEPAT IC FUNCT ION PANEL (7) albumin 4.8 g/dL 3.8-4. 9 Not Available [facility] ([facility]) [address] [place], [address], 03/08/2023 06:38:42 03/07/19 24 03/08/2023 HEPAT IC FUNCT ION PANEL (7) bilirubin, total 0.8 mg/dL 0.0-1. 2 Not Available [facility] ([facility]) [address] [place], [address], 03/08/2023 06:38:42 03/07/19 24 03/08/2023 HEPAT IC FUNCT ION PANEL (7) bilirubin, direct 0.17 mg/dL 0.00-0 .40 Not Available [facility] ([facility]) [address] [place], [address], 03/08/2023 06:38:42 03/07/19 24 03/08/2023 HEPAT IC FUNCT ION PANEL (7) alkaline phosphatase 115 IU/L 44-121 Not Available [facility] ([facility]) [address] [place], [address], 03/08/2023 06:38:42 03/07/19 24 03/08/2023 HEPAT IC FUNCT ION PANEL (7) AST (SGOT) 43 IU/L 0-40 above high normal Not Available [facility] ([facility]) [address] [place], [address], 03/08/2023 06:38:42 03/07/19 24 03/08/2023 HEPAT IC FUNCT ION PANEL (7) ALT (SGPT) 71 IU/L 0-32 above high normal Not Available [facility] ([facility]) [address] [place], [address], 03/08/2023 06:38:42 03/07/19 24 03/08/2023 IRON AND TIBC iron bind.cap.(TI BC) 336 ug/dL 250-45 0 Not Available [facility] ([facility]) [address] [place], [address], 03/08/2023 06:38:43 03/07/19 24 03/08/2023 IRON AND TIBC UIBC 195 ug/dL 131-42 5 Not Available [facility] ([facility]) [address] [place], [address], 03/08/2023 06:38:43 03/07/19 24 03/08/2023 IRON AND TIBC iron 141 ug/dL 27-159 Not Available [facility] ([facility]) [address] [place], [address], 03/08/2023 06:38:43 03/07/19 24 03/08/2023 IRON AND TIBC iron saturation 42 % 15-55 Not Available [facility] ([facility]) [address] [place], [address], 03/08/2023 06:38:43 03/07/19 24 03/08/2023 TSH TSH 0.896 uIU/m L 0.450- 4.500 Not Available [facility] ([facility]) [address], [place], [address], 03/08/2023 06:38:44 03/07/19 24 03/08/2023 VITAM IN D, 25-HY DROXY vitamin D, 25-hydroxy 31.0 NG/mL 30.0-1 00.0 Vitam in D defic iency has been defin ed by the Insti tute of Medic ine and an Endoc rine Socie ty pract ice guide line as a level of serum 25-OH vitam in D less than 20 ng/mL (1,2) . The Endoc rine Socie ty went on to furth er defin e vitam in D insuf ficie ncy as a level betwe en 21 and 29 ng/mL (2). 1. IOM (Inst itute of Medic ine). 2010. Dieta ry refer ence intak es for calci um and D. Luci euceda [place]: The [facility] . 2. Live melendez [place], Nicho morales [place], Papito off-F errar i KRAUS, et al. Evalu ation , treat ment, and preve ntion of vitam in D defic iency : an Endoc rine Socie ty clini megan pract ice guide line. JCEM. 2010; 96(7) :1911 -30. Not Available [facility] ([facility]) [address], [place], [address], 03/08/2023 06:38:44 03/07/1903/08/2023 MARJ TIN ferritin 127 NG/mL 15-150 Not Available [facility] ([facility]) [address] [facility], [place], [address], 03/08/2023 06:38:45 03/07/19 24 03/07/2023 AMBIG ABBRE V BMP8 DEFAU LT ambig abbrev BMP8 default Commen t A hand- writt en panel /prof ile was recei tammi from your offic e. In accor dance with the [facility] Tesha gray Test Code Polic y dated August 2002, we have compl eted your order by using the close st curre ntly or forme rly recog nized AMA panel . We have assjanie sheldon Basic Metab olic Panel (8), Test Code #3227 [address]. If this is not the testi ng you wishe d to recei ve on this speci men, pleas e conta ct the [facility] Clien t Inqui ry/Te chnic al Servi rashida Depar tment to marlon fy the test order . We appre ciate your busin ess. Not Available [facility] ([facility]) [address] [place], [address], 03/08/2023 06:38:46 03/07/19 24 03/07/2023 AMBIG ABBRE V LP DEFAU LT ambig abbrev LP default COMMEN T A hand- writt en panel /prof ile was recei tammi from your offic e. In accor dance with the [facility] Tesha gray Test Code Polic y dated August 2002, we have compl eted your order by using the close st curre ntly or forme rly recog nized AMA panel . We have rosa isela sheldon Lipid Panel , Test Code #3037 [address]. If this is not the testi ng you wishe d to recei ve on this speci men, pleas e conta ct the [facility] Clien t Inqui ry/Te chnic al Servi rashida Depar tment to marlon fy the test order . We appre ciate your busin ess. Not Available [facility] ([facility]) [address] [place], [address], 03/08/2023 06:38:47 03/07/19 24 03/07/2023 AMBIG ABBRE V HFP7 DEFAU LT ambig abbrev hfp7 default Commen t A hand- writt en panel /prof timmons was recei tammi from your offic e. In accor dance with the [facility] Tesha gray Test Code Polic y dated August 2002, we have compl eted your order by using the close st curre ntly or forme rly recog nized AMA panel . We have assajnie sheldon Hepat ic Funct ion Panel (7), Test Code #3227 [address]. If this is not the testi ng you wishe d to recei ve on this speci men, pleas e conta ct the [facility] Clien t Inqui ry/Te chnic al Servi rashida Depar tment to marlon fy the test order . We appre ciate your busin ess. Not Available [facility] ([facility]) [address] [place], [address], 03/08/2023 06:38:48 04/03/19 25 04/04/2024 FE+TI BC+TR ANSF iron bind.cap.(TI BC) 307 ug/dL 250-45 0 normal Not Available [facility] ([facility]) [address] [place], [address], 04/05/2024 14:09:39 04/03/19 25 04/04/2024 FE+TI BC+TR ANSF UIBC 181 ug/dL 131-42 5 normal Not Available [facility] ([facility]) [address] [place], [address], 04/05/2024 14:09:39 04/03/19 25 04/04/2024 FE+TI BC+TR ANSF iron 126 ug/dL 27-159 normal Not Available [facility] ([facility]) [address] [place], [address], 04/05/2024 14:09:39 04/03/19 25 04/04/2024 FE+TI BC+TR ANSF iron saturation 41 % 15-55 normal Not Available [facility] ([facility]) [address] [place], [address], 04/05/2024 14:09:39 04/03/19 25 04/04/2024 FE+TI BC+TR ANSF transferrin 260 mg/dL 192-36 4 normal Not Available [facility] ([facility]) [address] [place], [address], 04/05/2024 14:09:39 04/03/19 25 04/04/2024 TSH+F REE T4 TSH 0.800 uIU/m L 0.450- 4.500 normal Not Available [facility] ([facility]) [address] [place], [address], 04/05/2024 14:09:41 04/03/19 25 04/04/2024 TSH+F REE T4 T4,free(dire ct) 1.28 NG/dL 0.82-1 .77 normal Not Available [facility] ([facility]) [address] [place], [address], 04/05/2024 14:09:41 04/03/19 25 04/04/2024 CBC WITH DIFFE RENTI AL/PL ATELE T WBC 2.8 x10e3 /uL 3.4-10 .8 below low normal Not Available [facility] ([facility]) [address] [place], [address], 04/05/2024 14:09:42 04/03/19 25 04/04/2024 CBC WITH DIFFE RENTI AL/PL ATELE T RBC 4.26 x10e6 /uL 3.77-5 .28 normal Not Available [facility] ([facility]) [address] [place], [address], 04/05/2024 14:09:42 04/03/19 25 04/04/2024 CBC WITH DIFFE RENTI AL/PL ATELE T hemoglobin 13.6 g/dL 11.1-1 5.9 normal Not Available [facility] ([facility]) [address] [place], [address], 04/05/2024 14:09:42 04/03/19 25 04/04/2024 CBC WITH DIFFE RENTI AL/PL ATELE T hematocrit 41.1 % 34.0-4 6.6 normal Not Available [facility] ([facility]) [address] [place], [address], 04/05/2024 14:09:42 04/03/19 25 04/04/2024 CBC WITH DIFFE RENTI AL/PL ATELE T MCV 97 fL 79-97 normal Not Available [facility] ([facility]) [address] [place], [address], 04/05/2024 14:09:42 04/03/19 25 04/04/2024 CBC WITH DIFFE RENTI AL/PL ATELE T MCH 31.9 pg 26.6-3 3.0 normal Not Available [facility] ([facility]) [address] [place], [address], 04/05/2024 14:09:42 04/03/19 25 04/04/2024 CBC WITH DIFFE RENTI AL/PL ATELE T MCHC 33.1 g/dL 31.5-3 5.7 normal Not Available [facility] ([facility]) [address] [place], [address], 04/05/2024 14:09:42 04/03/19 25 04/04/2024 CBC WITH DIFFE RENTI AL/PL ATELE T RDW 12.6 % 11.7-1 5.4 Not Available [facility] ([facility]) [address] [place], [address], 04/05/2024 14:09:42 04/03/19 25 04/04/2024 CBC WITH DIFFE RENTI AL/PL ATELE T platelets 214 x10e3 /uL 150-45 0 normal Not Available [facility] ([facility]) [address] [place], [address], 04/05/2024 14:09:42 04/03/19 25 04/04/2024 CBC WITH DIFFE RENTI AL/PL ATELE T neutrophils 43 % not estab. normal Not Available [facility] ([facility]) [address] [facility], [place], [address], 04/05/2024 14:09:42 04/03/19 25 04/04/2024 CBC WITH DIFFE RENTI AL/PL ATELE T lymphs 39 % not estab. normal Not Available [facility] ([facility]) [address] [facility] [address] [facility], [place], [address], 04/05/2024 14:09:42 04/03/19 25 04/04/2024 CBC WITH DIFFE RENTI AL/PL ATELE T monocytes 11 % not estab. normal Not Available [facility] ([facility]) [address] [facility], [place], [address], 04/05/2024 14:09:42 04/03/19 25 04/04/2024 CBC WITH DIFFE RENTI AL/PL ATELE T eos 5 % not estab. normal Not Available [facility] ([facility]) [address] [facility], [place], [address], 04/05/2024 14:09:42 04/03/19 25 04/04/2024 CBC WITH DIFFE RENTI AL/PL ATELE T basos 2 % not estab. normal Not Available [facility] ([facility]) [address] [facility], [place], [address], 04/05/2024 14:09:42 04/03/19 25 04/04/2024 CBC WITH DIFFE RENTI AL/PL ATELE T immature cells MARKETING FINANCE SPECIALIST Not Available [facility] ([facility]) [address] [facility], [place], [address], 04/05/2024 14:09:42 04/03/19 25 04/04/2024 CBC WITH DIFFE RENTI AL/PL ATELE T neutrophils (absolute) 1.2 x10e3 /uL 1.4-7. 0 below low normal Not Available [facility] ([facility]) [address] [place], [address], 04/05/2024 14:09:42 04/03/19 25 04/04/2024 CBC WITH DIFFE RENTI AL/PL ATELE T lymphs (absolute) 1.1 x10e3 /uL 0.7-3. 1 normal Not Available [facility] ([facility]) [address] [place], [address], 04/05/2024 14:09:42 04/03/19 25 04/04/2024 CBC WITH DIFFE RENTI AL/PL ATELE T monocytes(ab solute) 0.3 x10e3 /uL 0.1-0. 9 normal Not Available [facility] ([facility]) [address] [place], [address], 04/05/2024 14:09:42 04/03/19 25 04/04/2024 CBC WITH DIFFE RENTI AL/PL ATELE T eos (absolute) 0.1 x10e3 /uL 0.0-0. 4 normal Not Available [facility] ([facility]) [address] [place], [address], 04/05/2024 14:09:42 04/03/19 25 04/04/2024 CBC WITH DIFFE RENTI AL/PL ATELE T baso (absolute) 0.1 x10e3 /uL 0.0-0. 2 normal Not Available [facility] ([facility]) [address] [place], [address], 04/05/2024 14:09:42 04/03/19 25 04/04/2024 CBC WITH DIFFE RENTI AL/PL ATELE T immature granulocytes 0 % not estab. Not Available [facility] ([facility]) [address] [place], [address], 04/05/2024 14:09:42 04/03/19 25 04/04/2024 CBC WITH DIFFE RENTI AL/PL ATELE T immature grans (abs) 0.0 x10e3 /uL 0.0-0. 1 Not Available [facility] ([facility]) [address] [facility], [place], [address], 04/05/2024 14:09:42 04/03/19 25 04/04/2024 CBC WITH DIFFE RENTI AL/PL ATELE T NRBC MARKETING FINANCE SPECIALIST Not Available [facility] ([facility]) [address] [facility], [place], [address], 04/05/2024 14:09:42 04/03/19 25 04/04/2024 CBC WITH DIFFE RENTI AL/PL ATELE T hematology comments: MARKETING FINANCE SPECIALIST Not Available [facility] ([facility]) [address] [facility], [place], [address], 04/05/2024 14:09:42 04/03/19 25 04/04/2024 COMP. METAB OLIC PANEL (14) glucose 102 mg/dL 70-99 above high normal Not Available [facility] ([facility]) [address] [facility], [place], [address], 04/05/2024 14:09:43 04/03/19 25 04/04/2024 COMP. METAB OLIC PANEL (14) BUN 20 mg/dL 6-24 normal Not Available [facility] ([facility]) [address] [facility], [place], [address], 04/05/2024 14:09:43 04/03/19 25 04/04/2024 COMP. METAB OLIC PANEL (14) creatinine 0.57 mg/dL 0.57-1 .00 normal Not Available [facility] ([facility]) [address] [facility], [place], [address], 04/05/2024 14:09:43 04/03/19 25 04/04/2024 COMP. METAB OLIC PANEL (14) eGFR 105 mL/mi n/1.7 3 >59 normal Not Available [facility] ([facility]) [address] [place], [address], 04/05/2024 14:09:43 04/03/19 25 04/04/2024 COMP. METAB OLIC PANEL (14) BUN/creatini ne ratio 35 9-23 above high normal Not Available [facility] ([facility]) [address] [facility], [place], [address], 04/05/2024 14:09:43 04/03/19 25 04/04/2024 COMP. METAB OLIC PANEL (14) sodium 138 mmol/ L 134-14 4 normal Not Available [facility] ([facility]) [address] [facility], [place], [address], 04/05/2024 14:09:43 04/03/19 25 04/04/2024 COMP. METAB OLIC PANEL (14) potassium 4.0 mmol/ L 3.5-5. 2 normal Not Available [facility] ([facility]) [address] [place], [address], 04/05/2024 14:09:43 04/03/19 25 04/04/2024 COMP. METAB OLIC PANEL (14) chloride 102 mmol/ L 96-106 normal Not Available [facility] ([facility]) [address] [place], [address], 04/05/2024 14:09:43 04/03/19 25 04/04/2024 COMP. METAB OLIC PANEL (14) carbon dioxide, total 24 mmol/ L 20-29 normal Not Available [facility] ([facility]) [address] [place], [address], 04/05/2024 14:09:43 04/03/19 25 04/04/2024 COMP. METAB OLIC PANEL (14) calcium 9.6 mg/dL 8.7-10 .2 normal Not Available [facility] ([facility]) [address] [place], [address], 04/05/2024 14:09:43 04/03/19 25 04/04/2024 COMP. METAB OLIC PANEL (14) protein, total 7.6 g/dL 6.0-8. 5 normal Not Available [facility] ([facility]) [address] [place], [address], 04/05/2024 14:09:43 04/03/19 25 04/04/2024 COMP. METAB OLIC PANEL (14) albumin 4.5 g/dL 3.8-4. 9 normal Not Available [facility] ([facility]) [address] [place], [address], 04/05/2024 14:09:43 04/03/19 25 04/04/2024 COMP. METAB OLIC PANEL (14) globulin, total 3.1 g/dL 1.5-4. 5 Not Available [facility] ([facility]) [address] [place], [address], 04/05/2024 14:09:43 04/03/19 25 04/04/2024 COMP. METAB OLIC PANEL (14) bilirubin, total 0.8 mg/dL 0.0-1. 2 normal Not Available [facility] ([facility]) [address] [place], [address], 04/05/2024 14:09:43 04/03/19 25 04/04/2024 COMP. METAB OLIC PANEL (14) alkaline phosphatase 87 IU/L 44-121 normal Not Available [facility] ([facility] [address] [place], [address], 04/05/2024 14:09:43 04/03/19 25 04/04/2024 COMP. METAB OLIC PANEL (14) AST (SGOT) 21 IU/L 0-40 normal Not Available [facility] ([facility]) [address] [facility] [place], [address], 04/05/2024 14:09:43 04/03/19 25 04/04/2024 COMP. METAB OLIC PANEL (14) ALT (SGPT) 26 IU/L 0-32 normal Not Available [facility] ([facility]) [address] [place], [id number], 04/05/2024 14:09:43 04/03/19 25 04/04/2024 HEPAT IC FUNCT ION PANEL (7) bilirubin, direct 0.21 mg/dL 0.00-0 .40 normal Not Available [facility] ([facility]) [address] [place], [id number], 04/05/2024 14:09:44 04/03/19 25 04/04/2024 LIPID PANEL cholesterol, total 236 mg/dL 100-19 9 above high normal Not Available [facility] ([facility]) [address] [place], [address], 04/05/2024 14:09:46 04/03/19 25 04/04/2024 LIPID PANEL triglyceride s 65 mg/dL 0-149 normal Not Available [facility] ([facility]) [address] [place], [address], 04/05/2024 14:09:46 04/03/19 25 04/04/2024 LIPID PANEL HDL cholesterol 71 mg/dL >39 normal Not Available [facility] ([facility]) [address] [place], [address], 04/05/2024 14:09:46 04/03/19 25 04/04/2024 LIPID PANEL VLDL cholesterol megan 11 mg/dL 5-40 Not Available [facility] ([facility]) [address] [place], [address], 04/05/2024 14:09:46 04/03/19 25 04/04/2024 LIPID PANEL LDL chol calc ([facility]) 154 mg/dL 0-99 above high normal Not Available [facility] ([facility]) [address] [place], [address], 04/05/2024 14:09:46 04/03/19 25 04/04/2024 LIPID PANEL LDL calc comment: MARKETING FINANCE SPECIALIST Not Available [facility] ([facility]) [address] [place], [address], 04/05/2024 14:09:46 04/03/19 25 04/04/2024 MARJ TIN, (SERI AL) ferritin 150 NG/mL 15-150 Not Available [facility] ([facility]) [address] [place], [address], 04/05/2024 14:09:47 04/03/19 25 04/05/2024 MARJ TIN, (SERI AL) pdf . Not Available [facility] ([facility]) [address] [place], [address], 04/05/2024 14:09:47 04/03/19 25 04/04/2024 HEMOG LOBIN A1C hemoglobin A1C 5.2 % 4.8-5. 6 normal Predi abete s: 5.7 - 6.4 Diabe twyla: >6.4 Glyce vernon contr ol for adult s with diabe twyla: <7.0 Not Available [facility] ([facility]) [address] [place], [address], 04/05/2024 14:09:48 04/03/19 25 04/04/2024 VITAM IN D, 25-HY DROXY vitamin D, 25-hydroxy 35.5 NG/mL 30.0-1 00.0 Vitam in D defic iency has been defin ed by the Insti steffen of Medic ine and an Endoc rine Socie ty pract ice guide line as a level of serum 25-OH vitam in D less than 20 ng/mL (1,2) . The Endoc rine Socie ty went on to furth er defin e vitam in D insuf ficie ncy as a level betwe en 21 and 29 ng/mL (2). 1. IOM (Inst itute of Medic ine). 2010. Ada ry refer ence intak es for calci um and D. Luci euceda [place]: [facility] . 2. Live k MF, Binmark ey [place], Papito off-F errar i KRAUS, et al. Evalu ation , treat ment, and preve ntion of vitam in D defic iency : an Endoc rine Socie ty clini megan pract ice guide line. JCEM. 2010; 96(7) :1911 -30. Not Available [facility] ([facility]) [address] [facility], [place], [address], 04/05/2024 14:09:49 04/03/19 25 04/04/2024 HCV ANTIB ABBI hep C virus Ab Non Reacti ve non reacti ve HCV antib abbi alone does not diffe renti ate betwe en previ ously resol tammi infec tion and activ e infec tion. Equiv ocal and React wendy HCV antib abbi resul ts shoul d be follo wed up with an HCV RNA test to suppo rt the diagn osis of activ e HCV infec tion. Not Available [facility] ([facility]) [address] [place], [address], 04/05/2024 14:09:50 04/10/19 25 04/11/2024 CBC WITH DIFFE RENTI AL/PL ATELE T WBC 2.9 x10e3 /uL 3.4-10 .8 below low normal Not Available [facility] ([facility]) [address] [place], [address], 04/11/2024 04:07:07 04/10/19 25 04/11/2024 CBC WITH DIFFE RENTI AL/PL ATELE T RBC 4.12 x10e6 /uL 3.77-5 .28 normal Not Available [facility] ([facility]) [address] [facility], [place], [address], 04/11/2024 04:07:07 04/10/1904/11/2024 CBC WITH DIFFE RENTI AL/PL ATELE T hemoglobin 13.2 g/dL 11.1-1 5.9 normal Not Available [facility] ([facility]) [address] [facility], [place], [address], 04/11/2024 04:07:07 04/10/1904/11/2024 CBC WITH DIFFE RENTI AL/PL ATELE T hematocrit 40.0 % 34.0-4 6.6 normal Not Available [facility] ([facility]) [address] [facility], [place], [address], 04/11/2024 04:07:07 04/10/1904/11/2024 CBC WITH DIFFE RENTI AL/PL ATELE T MCV 97 fL 79-97 normal Not Available [facility] ([facility]) [address] [facility], [place], [address], 04/11/2024 04:07:07 04/10/1904/11/2024 CBC WITH DIFFE RENTI AL/PL ATELE T MCH 32.0 pg 26.6-3 3.0 normal Not Available [facility] ([facility]) [address] [place], [address], 04/11/2024 04:07:07 04/10/1904/11/2024 CBC WITH DIFFE RENTI AL/PL ATELE T MCHC 33.0 g/dL 31.5-3 5.7 normal Not Available [facility] ([facility]) [address] [place], [address], 04/11/2024 04:07:07 04/10/19 25 04/11/2024 CBC WITH DIFFE RENTI AL/PL ATELE T RDW 12.6 % 11.7-1 5.4 Not Available [facility] ([facility]) [address] [facility], [place], [address], 04/11/2024 04:07:07 04/10/19 25 04/11/2024 CBC WITH DIFFE RENTI AL/PL ATELE T platelets 225 x10e3 /uL 150-45 0 normal Not Available [facility] ([facility]) [address] [facility], [place], [address], 04/11/2024 04:07:07 04/10/19 25 04/11/2024 CBC WITH DIFFE RENTI AL/PL ATELE T neutrophils 46 % not estab. normal Not Available [facility] ([facility]) [address] [facility], [place], [address], 04/11/2024 04:07:07 04/10/19 25 04/11/2024 CBC WITH DIFFE RENTI AL/PL ATELE T lymphs 38 % not estab. normal Not Available [facility] ([facility]) [address] [facility], [place], [address], 04/11/2024 04:07:07 04/10/19 25 04/11/2024 CBC WITH DIFFE RENTI AL/PL ATELE T monocytes 10 % not estab. normal Not Available [facility] ([facility]) [address] [facility], [place], [address], 04/11/2024 04:07:07 04/10/19 25 04/11/2024 CBC WITH DIFFE RENTI AL/PL ATELE T eos 5 % not estab. normal Not Available [facility] ([facility]) [address] [facility], [place], [address], 04/11/2024 04:07:07 04/10/19 25 04/11/2024 CBC WITH DIFFE RENTI AL/PL ATELE T basos 1 % not estab. 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 0 below low normal Not Available [facility] ([facility]) [address] [place], [address], 04/11/2024 04:07:07 04/10/19 25 04/11/2024 CBC WITH DIFFE RENTI AL/PL ATELE T lymphs (absolute) 1.1 x10e3 /uL 0.7-3. 1 normal Not Available [facility] ([facility]) [address] [place], [address], 04/11/2024 04:07:07 04/10/19 25 04/11/2024 CBC WITH DIFFE RENTI AL/PL ATELE T monocytes(ab solute) 0.3 x10e3 /uL 0.1-0. 9 normal Not Available [facility] ([facility]) [address] [place], [address], 04/11/2024 04:07:07 04/10/19 25 04/11/2024 CBC WITH DIFFE RENTI AL/PL ATELE T eos (absolute) 0.2 x10e3 /uL 0.0-0. 4 normal Not Available [facility] ([facility]) [address] [place], [address], 04/11/2024 04:07:07 04/10/19 25 04/11/2024 CBC WITH DIFFE RENTI AL/PL ATELE T baso (absolute) 0.0 x10e3 /uL 0.0-0. 2 normal Not Available [facility] ([facility]) [address] [facility], [place], [address], 04/11/2024 04:07:07 04/10/19 25 04/11/2024 CBC WITH DIFFE RENTI AL/PL ATELE T immature granulocytes 0 % not estab. Not Available [facility] ([facility]) [address] [facility], [place], [address], 04/11/2024 04:07:07 04/10/19 25 04/11/2024 CBC WITH DIFFE RENTI AL/PL ATELE T immature grans (abs) 0.0 x10e3 /uL 0.0-0. 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 [id number] [facility] [address], [place], [address], 04/24/2022 09:21:11 11/10/19 23 11/08/2022 MAMMO , scree eliz, digit al, bilat eral No observ ation record ed. [email or web address] [facility] [address], [place], [address], 07/04/2023 09:48:09 12/20/20 24 02/13/2024 MAMMO , scree eliz, digit al, bilat eral No observ ation record ed. [email or web address] [facility] [address], [place], [address], 03/02/2024 09:33:06 02/13/20 24 02/13/2024 MAMMO , scree eliz, digit al, bilat eral No observ ation record ed. [email or web address] [facility] [address], [place], [address], 03/02/2024 09:33:16 Result Notes None recorded. Problems Name Problem SNOMED Code Status Onset Date Resolution Date Notes Provider Name and Address Organization Details Recorded Time Lumbar spondylosis 946724313 Active Not Available [facility] 3 09:16:31 Anemia 632804294 Active Not Available [facility] 3 09:16:31 Thoracic back pain 497019086 Active Not Available [facility] 3 09:16:31 Low back pain 232827001 Active Not Available [facility] 3 09:16:31 Abnormal heart beat 756415131 Active Not Available [facility] 3 09:16:31 Burning pain 69310262 Active Not Available [facility] 3 09:16:31 Disorder of rotator cuff 617448916 Active Not Available [facility] 3 09:16:31 White blood cell disorder 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 Active Not Available [facility] 3 09:16:31 Urgent desire to urinate 89375775 Active 2022 Aletha Camargo MD [address], [place], [address] , [facility] [employer] [facility] 3 13:54:23 Acute urinary tract infection 742679091 Active 2022 Aletha Camargo MD [address], [place], [address] , [facility] [employer] [facility] 3 16:33:59 Lipoma of skin 304682757 Active 2023 Aletha Camargo MD [address], [place], [address] , [facility] 4 11:52:37 Hyperlipidem ia 68561060 Active 2023 Aletha Camargo MD [address], [address], [place], [address] , [facility] 4 11:53:31 Goiter 5063475 Active 2023 Aletha Camargo MD [address], [address], [place], [address] , [facility] 4 11:54:16 Iron deficiency anemia 97116983 Active 2023 Aletha Camargo MD [address], [address], [place], [address] , [place] [facility] 4 11:54:26 Vitamin D deficiency 93270410 Active 2023 Aletha Camargo MD [address], [address], [place], [address] , [facility] 4 11:54:40 Chest pain 91799375 Active 2023 Aston hair MD [address], [address], [place], [address] , [facility] 4 15:00:34 Cough 52974633 Active 2023 Aletha Camargo MD [address], [address], [place], [address] , [facility] 4 12:19:00 Otalgia of left ear 6753828039 Active 2023 Aletha Camargo MD [address], [place], [address] , [facility] 4 18:04:05 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 Procedures Surgical History Date Name Laterality Status Provider Name and Address Organization Details Recorded Time 02/21/20 Colonoscopy completed Not Available [facility] 04/25/19 09:12:43 Dilation and curettage completed Not Available [facility] 04/24/2022 09:12:43 ligation of bilateral fallopian tubes completed Not Available [facility] 04/24/2022 09:12:43 Ablation completed Not Available [facility] 09:12:43 Imaging Results Imaging Date Name Status LastModified by [facility]iz [facility] Details LastModified Time 02/19/2022 XR, chest, 2 view completed [id number] [facility] [address], [place], [address], 04/24/2022 09:21:11 11/08/2022 MAMMO, screening, digital, bilateral completed [email or web address] [facility] [address], [place], [address], 07/04/2023 09:48:09 02/13/2024 MAMMO, screening, digital, bilateral completed [email or web address] [facility] [address], [place], [address], 03/02/2024 09:33:06 02/13/2024 MAMMO, screening, digital, bilateral completed [email or web address] [facility] [address], [place], [address], 03/02/2024 09:33:16 Procedure Notes None recorded. Medical Equipment None Reported. Allergies No known drug allergies Medications Name Sig Start Date Stop Date Status Note LastModified by Organization Details LastModified Time azithromyci n 250 mg tablet TAKE 2 TABLETS BY MOUTH ON DAY 1, AND THEN TAKE 1 TABLET BY MOUTH ONCE A DAY ON DAY 2 THROUGH DAY 5 03/31 completed Not Available Not Available Not Available sulfamethox azole 800 mg-trimetho prim 160 mg tablet Take 1 tablet every 12 hours by oral route for 7 days. 03/05 completed Not Available Not Available Not Available nystatin-tr iamcinolone 100,000 unit/g-0.1 % topical cream APPLY A THIN LAYER TOPICALLY TO AFFECTED AREA TWICE DAILY FOR 7-10 DAYS NEEDED 03/31 completed Not Available Not Available Not Available diclofenac sodium 75 mg tablet,gavin yed release Take 1 tablet twice a day by oral route as needed. 05/21 completed Not Available Not Available Not Available estradiol 0.01% (0.1 mg/gram) vaginal cream VAGINALLY ; APPLY ONE 4G APPLICATO RFUL INTRAVAGI ARMEN AT BEDTIME DAILY FOR A WEEK, THEN APPLY 2G APPLICATO RFUL AT BEDTIME DAILY FOR ONE WEEK, THEN APPLY 1G APPLICATO RFUL 2-3 TIMES WEEKLY NEEDED. LOADING DOSE. 03/31 completed Not Available Not Available Not Available naproxen 500 mg tablet Take 1 tablet(s) 2 TIMES A DAY by oral route with meals as needed for acute back pain 05/21 completed Not Available Not Available Not Available neomycin-po lymyxin-hyd rocort 3.5 mg-10,000 unit/mL-1 % ear drops,susp INSTILL 4 DROPS INTO AFFECTED EAR(S) THREE TIMES DAILY FOR 7 DAYS 03/31 completed Not Available Not Available Not Available cyclobenzap rine 5 mg tablet Take 1 tablet 3 times a day by oral route. 10/22 completed Not Available Not Available Not Available multivitami n 03/31 completed Not Available Not Available Not Available ferrous sulfate 324 mg (65 mg iron) tablet,gavni yed release 1 po qday 11/23 completed Not Available Not Available Not Available Nexium 24HR 22.3 mg capsule,del ayed release 1 po qday 10/22 completed Not Available Not Available Not Available Yuvafem 10 mcg vaginal tablet INSTILL ONE TABLET VAGINALLY TWICE A WEEK 03/31 completed Not Available Not Available Not Available Vitals Date Recorded Body mass index (BMI) Body height Oxygen saturation Oxygen saturation in Arterial blood by Pulse oximetry Heart rate Body temperature Body weight Systolic blood pressure Diastolic blood pressure Provider Name and Address Organization Details Last Updated DateTime 2 24 kg/m2 165.1 cm 99 % 99 % 80 /min 97.3 [degF] 85802.3 g 122 mm[Hg] 70 mm[Hg] Not Available [facility] 3 09:15:09 Date Recorded Body weight Body temperature Heart rate Oxygen saturation Oxygen saturation in Arterial blood by Pulse oximetry Systolic blood pressure Diastolic blood pressure Provider Name and Address Organization Details Last Updated DateTime 4 97389.2 2 g 98.6 [degF] 106 /min 99 % 99 % 144 mm[Hg] 80 mm[Hg] Yumiko Weldon RN [facility] [employer] 4 11:40:29 Date Recorded Body weight Body temperature Heart rate Oxygen saturation Oxygen saturation in Arterial blood by Pulse oximetry Body mass index (BMI) Body height Systolic blood pressure Diastolic blood pressure Provider Name and Address Organization Details Last Updated DateTime 4 79851.2 2 g 98.7 [degF] 86 /min 98 % 98 % 26.4 kg/m2 162.56 cm 140 mm[Hg] 80 mm[Hg] Eliana Martinez MA [employer] 4 10:40:04 Date Recorded Body weight Body temperature Heart rate Oxygen saturation Oxygen saturation in Arterial blood by Pulse oximetry Systolic blood pressure Diastolic blood pressure Provider Name and Address Organization Details Last Updated DateTime 5 26741.3 g 98.7 [degF] 92 /min 98 % 98 % 152 mm[Hg] 80 mm[Hg] Yumiko Weldon RN [facility] [employer] 5 14:05:26 Social History Question Answer Notes LastModified by Organizat ion Details LastModified Time Tobacco Smoking Status Former Smoker quit 2000 Not Available [facility] 04/24/2022 09:12:37 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 03/05/2023 [email or web address] Information not available 03/05/2023 Sex: Unknown Functional Status None recorded. Mental Status None recorded. Family History Relationship Description Onset Age of this Age Resolved Age Notes LastModified by Organization Details LastModified Time Father Malignant tumor of lung was heavy smoker [id number] Not available 04/24/2022 09:12:44 Maternal Grandmother Malignant tumor of breast [id number] Not available 04/24/2022 09:12:44 Sister Malignant tumor of breast [id number] Not available 04/24/2022 09:12:44 Medical History No medical history recorded. Gynecological HistoryNo gynecological history recorded. Obstetrics History GPAL:G 0 P 0 0 0 0 Immunizations Vaccine Type Date Status Note Provider Nam e and Address Organization Details Recorded Time Influenza, split virus, quadrivalent, PF 03/05/2023 completed Aletha Camargo MD [address] [place] [address], [facility] [address], [place], [address], [facility] [employer] 03/26/2023 08:55:59 Tdap 03/27/2012 completed Not Available [facility] 04/24/2022 09:21:01 Influenza, split virus, quadrivalent, PF 12/19/2020 completed Not Available [facility] 3 09:21:01 Influenza, split virus, quadrivalent, PF 11/29/2019 completed Not Available [facility] 3 09:21:01 Influenza, split virus, quadrivalent, PF 11/23/2018 completed Not Available [facility] 3 09:21:01 Influenza, split virus, quadrivalent, PF 02/06/2022 completed Not Available [facility] 3 09:21:01 Influenza, split virus, quadrivalent, PF 12/12/2016 completed Not Available [facility] 3 09:21:01 Past Encounters Encounter ID Performer Location Encounter Start Date Encounter Closed Date Diagnosis/Indication Diagnosis SNOMED-CT Code Diagnosis ICD10 Code Diagnosis Note [id number] [facility] Primary Care [facility] [address] [facility] [address] [place] [address] 12/19/2020 00:00:00 12/19/2020 16:43:23 [id number] [facility] Primary Care Johnnie benny [address] [facility] [address] [place] [address] 02/06/2022 00:00:00 02/22/2022 08:58:15 [id number] Aletha Camargo MD [facility] Primary Care [facility] [address] [facility] [address] [place] [address] 02/10/2023 14:05:53 04/14/2023 09:04:39 [id number] Aletha Camargo MD [facility] [address] [facility] [address] [place] [address] 03/05/2023 11:25:57 03/05/2023 12:02:21 Adult health examination 273434786 Z00.00 Check fasting labs Pap is up to date with gynecology 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 repeat 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 y done 01/2016 normal repeat 2025 flu vaccine today, recommend covid booster DEXA ordered Shingrix vaccine series recommende dHas been nonsmoker for 20+ years Postmenopausal state 764 40135 Z78.0 Lipoma of skin 183379286 D17.30 Hyperlipidemia 71196689 E78.5 Z79.899 Goiter 8030541 E04.9 Iron defic iency anemia 64010072 D50.9 Vitamin D deficiency 347 81934 E55.9 Administra tion of influenza vaccine 54322820 Z23 [id number] Aston hair MD [facility] General Surgery [address] [place] [address] 03/20/2023 09:55:42 03/20/2023 17:11:58 Chest pain 72396744 R07.9 [id number] BERTHA Powell-Shani [facility] Primary Care [facility] [address] [facility] [address] [place] [address] 03/31/2024 13:56:36 03/31/2024 14:23:53 Adult health examination 387785208 Z00.00 Discussed medication compliance and routine follow up.Discuss ed healthy diet and routine exercise.Jackie serranowed vaccine records and made recommenda tions as needed.Enc ouraged annual eye and dental exams, as well as twice yearly dental cleanings. Will check screening labs as listed below. Anemia 032547414 D64.9 Will check labs as listed below. Goiter 6618879 E04.9 Will check labs as listed below. Hyperlipidemia 78219034 E78.5 Z79.899 Will check labs a listed below. Vitamin D deficiency 347 78830 E55.9 Will check labs as listed below. Hepatitis C screening 41 6102040 Z11.59 Will check labs as listed below. Body mass index 25-29 - overweight 652810001 Z68.26 Burning mo uth syndrome 444191461 K14.6 Health Concerns Section Related Observation LastModified by Organization Detai ls LastModified Time None Recorded Concern Status LastModified by Organization Details LastModified Time None Recorded Advance Directives Directive None Recorded Payers Encounter Date Sequence Insurance Name Policy Number Policy Beatty Covered Member ID Beatty Member ID Guarantor Name 02/10/[address] [facility] [id number] Christopher L Sagrario [id number] Argelia Sagrario 03/05/[address] [facility] [id number] Christopher L Sagrario [id number] Argelia Sagrario 03/20/[address] [facility] [id number] Christopher L Sagrario [id number] Argelia Sagrario 03/31/[address] [facility] [id number] Christopher L Sagrario [id number] Argelia Sagrario Notes Date Note Type Note Provider Name and Address Organization Details Recorded Time 03/05/2023 text/html Here for wellnes s exam Aletha Camargo MD [address], [address], [place], [address], [facility] [employer] 03/26/2023 08:56:57 03/20/2023 text/html Patient complain s of pain the mom her upper breast bone. Has had for approximately a year. exacerbated by coughing, and sneezing. Denies any abnormal lumps. Had chest x-ray approximately 1 year ago with no abnormality. Denies fevers or chills. Aston Whitman MD [address], [place], [address], [facility] [employer] [facility] 03/20/2023 15:00:41 03/31/2024 text/html Patient is a 58 year old female that presents to the office for annual wellness. Patient reports she is doing well overall, does not take any daily medications. Patient reports left ear discomfort for several weeks. Patient denies pain-describes it as a quick twinge . Patient denies hearing loss. Patient denies drainage. Patient denies any recent illness. Patient also reports burning sensation to her mouth for several months. Patient reports she has been to the dentist twice for this and has been told everything looks normal. Patient reports the burning sensation is constant, nothing makes it better or worse. labs- ordered ([facility])WWE- UTD (10/2023)Mammogram- UTD (01/2024)Colonoscop y- UTD (01/2016)Flu- declinesCovid- declinesTdap- awareShingles- awarePneumo- aware BERTHA Powell-C [address] [place], [address], [facility] [employer] [facility] 03/31/2024 23:00:26 OBGyn Episode No OBEpisode recorded.
--- OUTSIDE RECORDS SUMMARY | 2024-05-24 16:07 | XMS_ITS | Clinical Summary ---
Author Organization [facility] Address [address] [place] [address] Phone Care Team Providers Care Jalousies Installer Name Role Phone Unavailable Primary Care Provider Unavailabl e Allergies No known active allergies Medications ferrous sulfate 134 mg (27 mg iron) Tablet Take 134 mg by mouth. Active Family History Medical History Relation Name Comments Colon Cancer Neg Hx Social History Tobacco Use Types Packs/Day Years Used Date Smoking Tobacco: Never Alcohol Use Standard Drinks/Week Comments No 0 (1 standard drink = 0.6 oz pur e alcohol) Comments Unknown Sex and Gender Information Value Date Recorded Sex Assigned at Not on file Legal Sex Female 3:15 PM CDT Gender Identity Not on file Sexual Orientation Not on file Last Filed Vital Signs Vital Sign Reading Time Taken Comments Blood Pressure 115/76 02/21/2016 11:15 AM [employer] Pulse 71 02/21/2016 11:15 AM [employer] Temperature 36.5 C (97.7 F) 02/21/2016 10:51 AM [employer] Respiratory Rate 12 02/21/2016 11:15 AM [employer] Oxygen Saturation 100% 02/21/2016 11:15 AM [employer] Inhaled Oxygen Concentration - - Weight 62.4 kg (137 lb 8 oz) 02/21/2016 10:01 AM [employer] Height 160 cm (5' 3 ) 02/21/2016 10:01 AM [employer] Body Mass Index 24.36 02/21/2016 10:01 AM [employer] Plan of Treatment Upcoming Encounters Date Type Department Care Team (Late st Contact Info) Description 08/02/2024 1:30 PM CDT Office Visit [facility] Oncology and Hematology - [address] [place] [phone] Cruz Sampson MD [address] [facility] [address] [place] [phone] Health Maintenance Due Date Last Done Comments DTAP/TDAP/TD VACCINES (1 - Tdap) 1984 HEPATITIS B VACCINES (1 of 3 - 19+ 3-dose series) 08/1984 PAP SMEAR 1986 CERVICAL CANCER SCREENING 11/01/1995 HPV/Cotest (30-65) 11/01/1995 PAP SMEAR 11/01/1995 BREAST CANCER SCREENING 2005 FIT-DNA Q 3 years 2010 FIT/FOBT Q 1 year 2010 Flex Sig/CT Colonography Q 5 years 2010 ZOSTER VACCINE (1 of 2) 11/01/2015 INFLUENZA VACCINE (#1) 2023 COLORECTAL SCREENING 02/20/2026 02/21/2016 Colorectal Cancer Screening 02/20/2026 Insurance [employer] [id number] Advance Directives For more information, please contact: [phone] * Full Code (Latest Code Status on File) Date Activated Date Inactivated Comments 02/21/2016 10:00 AM 02/21/2016 1:31 PM
--- OUTSIDE RECORDS SUMMARY | 2024-05-24 16:07 | XMS_ITS | Data Portability ---
Author Organization [facility] Address [address] [place] [address] Assessment No assessment recorded. Plan of Treatment Reminders Order Date Submit Date Provider Last Modified By Organization Details Last Modified Time Details Appointments None recorded. Lab ferritin, serum or plasma 2015 016 leana [facility], [address], [address], [place], [address], 14:38:32 iron + total iron-bindin g capacity (TIBC), serum 2015 016 leana [facility], [address], [address], [place], [address], 14:38:33 CBC 2015 016 leana [facility], [address], [address], [place], [address], 14:38:33 urinalysis, dipstick 2015 Raquel dueñas In-Office Order, Internal Use Only DO Not Attach Compendium DO Not Attach Compendium, Do Not Delete/merge, [id number] 15:13:30 lipid panel, serum 2015 016 FOSTER [facility], [address], [address], [place], [address], 6 06:43:48 CMP, serum or plasma 2015 016 FOSTER [facility], [address], [address], [place], [address], 6 06:43:48 CBC 2015 016 leana [facility], [address], [address], [place], [address], 6 13:52:24 Referral gastroenter ologist referral - WAS PATIENT SEEN? 2015 016 [email or web address] Silverio Curtis MD, [address] [facility] [address], [place], [address], 7 14:18:54 colonoscopy referral 2015 016 [email or web address] Not available 15:02:51 gastroenter ologist referral - PROCEDURE Please call patient to schedule and send consult report. Thanks!! 2015 016 [email or web address] Juan Tate MD, [address], [address], [place], [address], 6 12:35:32 Procedures None recorded. Surgeries None recorded. Imaging MAMMO, screening, bilateral 2015 016 [facility], [address], [address], [place], [address], 6 19:24:57 CT, abdomen, w/o contrast 2015 016 [facility], [address], [address], [place], [address], 6 04:29:07 Medication Orders None recorded. Patient TargetsNo targets recorded. Patient Instructions Encounter Date Encounter Id Patient Instructions Last Modified By Organization Details Last Modified Time 11/09/2015 [id number] Advised 30 minutes of exercise 5 days/week Advised to not drink her calories eewig Not available 11/09/2015 15:00:11 Will sign BENJA fo r last 2 office notes and recent labs and imaging from [facility] in [place] Will sign for pap smears and mammograms from Brenda Whitaker Patient declined flu vaccine RTC for WWE and then will do annual visits for everything eewig Not available 11/09/2015 15:13:31 12/15/2015 [id number] Return to clinic PRN eewig Not available 12/15/2015 11:17:25 Reason for Referral PROCEDURE Please call nivia yeung to schedule and send consult report. Thanks!! Referring Physician: Martha Clayton [facility], Encounter Date: 11/09/2015 Colonoscopy Referral for Pre ventive procedure Referring Physician: Martha Clayton [facility], Encounter Date: 12/15/2015 WAS PATIENT SEEN? Referring Physician: Martha Clayton [facility], Encounter Date: 12/15/2015 Results Created Date Observation Date Name Description Value Unit Range Abnormal Flag Note LastModifiedBy Organization Detail LastModifiedTime 11/09/19 16 11/09/2015 urina lysis , dipst ick Leukocytes Negati ve Not Available In-Office Order Internal Use Only DO Not Attach Compendium DO Not Attach Compendium, Do Not Delete/merge, [id number] 11/09/2015 14:35:34 11/09/19 16 11/09/2015 urina lysis , dipst ick Nitrite negati ve Not Available In-Office Order Internal Use Only DO Not Attach Compendium DO Not Attach Compendium, Do Not Delete/merge, [id number] 11/09/2015 14:35:34 11/09/19 16 11/09/2015 urina lysis , dipst ick Urobilinogen .2 Not Available In-Of fice Order Internal Use Only DO Not Attach Compendium DO Not Attach Compendium, Do Not Delete/merge, [id number] 11/09/2015 14:35:34 11/09/19 16 11/09/2015 urina lysis , dipst ick Protein Negati ve Not Available In-Office Order Internal Use Only DO Not Attach Compendium DO Not Attach Compendium, Do Not Delete/merge, [id number] 11/09/2015 14:35:34 11/09/19 16 11/09/2015 urina lysis , dipst ick pH 5.5 Not Available In-Office Order Internal Use Only DO Not Attach Compendium DO Not Attach Compendium, Do Not Delete/merge, 11/09/2015 14:35:34 11/09/19 16 11/09/2015 urina lysis , dipst ick Blood Small Not Available In-Office Order Internal Use Only DO Not Attach Compendium DO Not Attach Compendium, Do Not Delete/merge, 11/09/2015 14:35:34 11/09/19 16 11/09/2015 urina lysis , dipst ick Specific [place] 1.030 Not Available In-Off ice Order Internal Use Only DO Not Attach Compendium DO Not Attach Compendium, Do Not Delete/merge, 11/09/2015 14:35:34 11/09/19 16 11/09/2015 urina lysis , dipst ick Ketone Negati ve Not Available In-Office Order Internal Use Only DO Not Attach Compendium DO Not Attach Compendium, Do Not Delete/merge, 11/09/2015 14:35:34 11/09/19 16 11/09/2015 urina lysis , dipst ick Bilirubin Negati ve Not Available In-Office Order Internal Use Only DO Not Attach Compendium DO Not Attach Compendium, Do Not Delete/merge, 11/09/2015 14:35:34 11/09/19 16 11/09/2015 urina lysis , dipst ick Glucose Negati ve Not Available In-Office Order Internal Use Only DO Not Attach Compendium DO Not Attach Compendium, Do Not Delete/merge, 11/09/2015 14:35:34 11/09/19 16 11/09/2015 urina lysis , dipst ick Appearance Clear Not Available In-Offi ce Order Internal Use Only DO Not Attach Compendium DO Not Attach Compendium, Do Not Delete/merge, 11/09/2015 14:35:34 11/09/19 16 11/09/2015 urina lysis , dipst ick Color Yellow Not Available In-Office Order Internal Use Only DO Not Attach Compendium DO Not Attach Compendium, Do Not Delete/merge, 11/08/2016 14:35:34 11/09/19 16 11/10/2015 lipid panel , serum cholesterol, total 204 mg/dL 125-20 0 high Not Available [address], [address], 11/10/2015 06:43:48 11/09/1911/10/2015 lipid panel , serum HDL cholesterol 54 mg/dL > or = 46 normal Not Available [address], [address], 11/10/2015 06:43:48 11/09/1911/10/2015 lipid panel , serum triglyceride s 76 mg/dL <150 normal Not Available [address], [address], 11/10/2015 06:43:48 11/09/1911/10/2015 lipid panel , serum LDL-choleste rol 135 mg/dL _(megan c) <130 high Chris able range <100 mg/dL for patie nts with CHD or diabe twyla and <70 mg/dL for diabe tic patie nts with known heart disea se. Not Available [address], [address], 11/10/2015 06:43:48 11/09/1911/10/2015 lipid panel , serum chol/HDLC ratio 3.8 (calc ) < or = 5.0 normal Not Available [address], [address], 11/10/2015 06:43:48 11/09/1911/10/2015 lipid panel , serum non HDL cholesterol 150 mg/dL _(megan c) normal Targe t for non-H DL earnest stero l is 30 mg/dL highe r than LDL earnest stero l targe t. Not Available [address], [address], 11/10/2015 06:43:48 11/09/1909 1111/10/2015 CMP, serum or plasm a glucose 98 mg/dL 65-99 normal Fasti ng refer ence inter isidro Not Available [address], [address], 11/10/2015 06:43:48 11/09/19 16 11/10/2015 CMP, serum or plasm a urea nitrogen (BUN) 18 mg/dL 7-25 normal Not Available [address], [address], 11/10/2015 06:43:48 11/09/1911/10/2015 CMP, serum or plasm a creatinine 0.71 mg/dL 0.50-1 .05 normal For patie nts >49 years of age, the refer ence limit for Creat inine is appro ximat jerrell 13% highe r for peopl e ident ified as Afric an-Am magaly n. Not Available [address], [address], 11/10/2015 06:43:48 11/09/1911/10/2015 CMP, serum or plasm a eGFR non-afr. bhutanese 99 mL/mi n/1.7 3m2 > or = 60 normal Not Available [address], [address], 11/10/2015 06:43:48 11/09/1911/10/2015 CMP, serum or plasm a eGFR 115 mL/mi n/1.7 3m2 > or = 60 normal Not Available [facility] [address], [address], 11/10/2015 06:43:48 11/09/1911/10/2015 CMP, serum or plasm a BUN/creatini ne ratio NOT APPLIC ABLE (calc ) 6-22 Not Available [address], [address], 11/10/2015 06:43:48 11/09/1911/10/2015 CMP, serum or plasm a sodium 138 mmol/ L 135-14 6 normal Not Available [address], [address], 11/10/2015 06:43:48 11/09/1911/10/2015 CMP, serum or plasm a potassium 4.2 mmol/ L 3.5-5. 3 normal Not Available [address], [address], 11/10/2015 06:43:48 11/09/1911/10/2015 CMP, serum or plasm a chloride 103 mmol/ L 98-110 normal Not Available [address], [address], 11/10/2015 06:43:48 11/09/1911/10/2015 CMP, serum or plasm a carbon dioxide 26 mmol/ L 20-31 normal Not Available [address], [address], 11/10/2015 06:43:48 11/09/1911/10/2015 CMP, serum or plasm a calcium 9.5 mg/dL 8.6-10 .4 normal Not Available [address], [address], 11/10/2015 06:43:48 11/09/1911/10/2015 CMP, serum or plasm a protein, total 7.9 g/dL 6.1-8. 1 normal Not Available [address], [address], 11/10/2015 06:43:48 11/09/1911/10/2015 CMP, serum or plasm a albumin 4.6 g/dL 3.6-5. 1 normal Not Available [employer] [address], [address], 11/10/2015 06:43:48 11/09/1911/10/2015 CMP, serum or plasm a globulin 3.3 g/dL_ (calc ) 1.9-3. 7 normal Not Available [address], [address], 11/10/2015 06:43:48 11/09/19 16 11/10/2015 CMP, serum or plasm a albumin/glob ulin ratio 1.4 (calc ) 1.0-2. 5 normal Not Available [employer] [address], [address], 11/10/2015 06:43:48 11/09/1911/10/2015 CMP, serum or plasm a bilirubin, total 0.5 mg/dL 0.2-1. 2 normal Not Available [address], [address], 11/10/2015 06:43:48 11/09/1911/10/2015 CMP, serum or plasm a alkaline phosphatase 41 U/L 33-130 normal Not Available [facility] [address], [address], 11/10/2015 06:43:48 11/09/1911/10/2015 CMP, serum or plasm a AST 15 U/L 10-35 normal Not Available [facility] [address], [address], 11/10/2015 06:43:48 11/09/1911/10/2015 CMP, serum or plasm a ALT 12 U/L 6-29 normal Not Available [facility] [address], [address], 11/10/2015 06:43:48 11/09/19 16 11/10/2015 CBC w/ auto diff white blood cell count 4.8 thous and/u L 3.8-10 .8 normal Not Available [facility] [address], [address], 11/10/2015 06:43:49 11/09/1911/10/2015 CBC w/ auto diff red blood cell count 4.05 angus on/uL 3.80-5 .10 normal Not Available [address], [address], 11/10/2015 06:43:49 11/09/1911/10/2015 CBC w/ auto diff hemoglobin 10.8 g/dL 11.7-1 5.5 low Not Available [address], [address], 11/10/2015 06:43:49 11/09/1911/10/2015 CBC w/ auto diff hematocrit 33.1 % 35.0-4 5.0 low Not Available [address], [address], 11/10/2015 06:43:49 11/09/1911/10/2015 CBC w/ auto diff MCV 81.9 fL 80.0-1 00.0 normal Not Available [address], [address], 11/10/2015 06:43:49 11/09/1911/10/2015 CBC w/ auto diff MCH 26.7 pg 27.0-3 3.0 low Not Available [address], [address], 11/10/2015 06:43:49 11/09/1911/10/2015 CBC w/ auto diff MCHC 32.6 g/dL 32.0-3 6.0 normal Not Available [address], [address], 11/10/2015 06:43:49 11/09/1911/10/2015 CBC w/ auto diff RDW 15.4 % 11.0-1 5.0 high Not Available [address], [address], 11/10/2015 06:43:49 11/09/1911/10/2015 CBC w/ auto diff platelet count 248 thous and/u L 140-40 0 normal Not Available [address], [address], 11/10/2015 06:43:49 11/09/1911/10/2015 CBC w/ auto diff MPV 9.7 fL 7.5-11 .5 normal Not Available [address], [address], 11/10/2015 06:43:49 11/09/1911/10/2015 CBC w/ auto diff absolute neutrophils 2995 cells /uL 1500-7 800 normal Not Available [address], [address], 11/10/2015 06:43:49 11/09/1911/10/2015 CBC w/ auto diff absolute lymphocytes 1195 cells /uL 850-39 00 normal Not Available [address], [address], 11/10/2015 06:43:49 11/09/1911/10/2015 CBC w/ auto diff absolute monocytes 490 cells /uL 200-95 0 normal Not Available [address], [address], 11/10/2015 06:43:49 11/09/1911/10/2015 CBC w/ auto diff absolute eosinophils 91 cells /uL 15-500 normal Not Available [address], [address], 11/10/2015 06:43:49 11/09/1911/10/2015 CBC w/ auto diff absolute basophils 29 cells /uL 0-200 normal Not Available [address], [address], 11/10/2015 06:43:49 11/09/1911/10/2015 CBC w/ auto diff neutrophils 62.4 % normal Not Available [address], [address], 11/10/2015 06:43:49 11/09/1911/10/2015 CBC w/ auto diff lymphocytes 24.9 % normal Not Available [address], [address], 11/10/2015 06:43:49 11/09/1911/10/2015 CBC w/ auto diff monocytes 10.2 % normal Not Available [address], [address], 11/10/2015 06:43:49 11/09/1911/10/2015 CBC w/ auto diff eosinophils 1.9 % normal Not Available [address], [address], 11/10/2015 06:43:49 11/09/1911/10/2015 CBC w/ auto diff basophils 0.6 % normal Not Available [address], [address], 11/10/2015 06:43:49 11/22/1911/23/2015 iron + total iron- claudia ng capac ity (TIBC ), serum iron, total 33 mcg/d L 45-160 low Not Available [address], [address], 11/23/2015 06:21:38 11/22/1911/23/2015 iron + total iron- claudia ng capac ity (TIBC ), serum iron binding capacity 421 mcg/d L_(ca lc) 250-45 0 normal Not Available [address], [address], 11/23/2015 06:21:38 11/22/1911/23/2015 iron + total iron- claudia ng capac ity (TIBC ), serum % saturation 8 %_(ca lc) 11-50 low Not Available [facility] [address] [place], [address], 11/23/2015 06:21:38 11/22/19 16 11/23/2015 noman tin, serum or plasm a ferritin 5 NG/mL 10-232 low Not Available [facility] [address] [place], [address], 11/23/2015 06:21:39 12/05/19 16 12/04/2015 CT, abdom en, w/o contr ast No observ ation record ed. [address] [facility] [address], [place], [address], 12/05/2015 11:57:41 12/18/19 16 12/16/2015 MAMMO , scree eliz, bilat eral No observ ation record ed. [address] [facility] [address], [place], [address], 12/19/2015 15:55:13 Result Notes None recorded. Problems Name Problem SNOMED Code Status Onset Date Resolution Date Notes Provider Name and Address Organization Details Recorded Time Excessive cerumen in ear canal 636205549 Active Martha Clayton PA-C Attn: Accounting ,[address] [place], [address] , [facility] 6 14:20:19 Hyperlipi demia 33246134 Active Martha Clayton PA-C Attn: Accounting ,[address] [place], [address] , [facility] 6 14:20:19 Full blood count outside reference range 692852254 Active Martha Clayton PA-C Attn: Accounting ,[address] [place], [address] , [facility] 6 14:20:19 Anemia 074093202 Active per historical notes from last provider Martha Clayton PA-C Attn: Accounting ,[address] [facility], [place], [address] , [facility] 6 16:28:40 Lumbar spondylos is 692384427 Active per historical notes from last provider - xrays in historical record Martha Clayton PA-C Attn: Accounting ,[address] [facility], [place], [address] , [facility] 6 14:20:19 Swollen abdomen 00879508 Active Martha Clayton PA-C Attn: Accounting ,[address] [facility], [place], [address] , [facility] 6 16:28:40 Abdominal distensio n Active Mary Arevalo LPN null, [facility] 6 07:52:21 Problem Notes None recorded. Procedures Surgical History Date Name Laterality Status Provider Name and Address Organization Details Recorded Time 6 Cerumen Removal completed Martha Clayton PA-C Attn: Accounting,[address] [facility], [place], [address], [facility] 11/09/2015 15:13:32 0 Tubal Ligation completed Janee Smith MA [facility] 11/09/2015 14:35:34 9 Dilation and Curettage completed Janee Smith MA [facility] 11/09/2015 14:35:34 Imaging Results Imaging Date Name Status LastModified by Organ atformerly [facility] Details LastModified Time 12/04/2015 CT, abdomen, w/o contrast completed [address] [facility] [address], [place], [address], 12/05/2015 11:57:41 12/16/2015 MAMMO, screening, bilateral completed [address] [facility] [address], [place], [address], 12/19/2015 15:55:13 Procedure Notes None recorded. Medical Equipment None Reported. Allergies No known drug allergies Medications Name Sig Start Date Stop Date Status Note LastModified by Organization Details LastModified Time diclofenac sodium 75 mg tablet,delay ed release 11/08 completed Not Available Not Available Not Available ferrous sulfate 325 mg (65 mg iron) tablet,delay ed release Take 1 tablet twice a day by oral route. 2015 active Not Available Not Available Not Avai lable naproxen 500 mg tablet 11/08 completed Not Available Not Available Not Available Vitals Date Recorded Respiratory rate Body weight Heart rate Body mass index (BMI) Body temperature Body height Systolic blood pressure Diastolic blood pressure Provider Name and Address Organization Details Last Updated DateTime 6 18 /min 44528.3 42055 g 80 /min 25.3 kg/m2 98.5 [degF] 160.02 cm 120 mm[Hg] 80 mm[Hg] Janee Smith MA [facility] 6 14:35:33 Date Recorded Body height Heart rate Oxygen saturation Oxygen saturation in Arterial blood by Pulse oximetry Body temperature Systolic blood pressure Diastolic blood pressure Provider Name and Address Organization Details Last Updated DateTime 6 160.02 cm 115 /min 99 % 99 % 98 [degF] 134 mm[Hg] 80 mm[Hg] Lillian Frias MA [facility] 6 16:03:42 Date Recorded Body height Body weight Body mass index (BMI) Heart rate Respiratory rate Body temperature Systolic blood pressure Diastolic blood pressure Provider Name and Address Organization Details Last Updated DateTime 6 160.02 cm 29263.9 1 g 20.7 kg/m2 84 /min 18 /min 98.5 [degF] 112 mm[Hg] 76 mm[Hg] Janee Smith MA [facility] 6 10:40:20 Social History Question Answer Notes LastModified by Organizat ion Details LastModified Time Tobacco Smoking Status Former Smoker quit in 1999 Martha Clayton PA-C Attn: Accounting,[address] [place], [address], [facility] 11/09/2015 14:51:55 What Is Your Level Of Alcohol Consumption? None Information not available 11/09/2015 Are You Blind Or Do You Have Difficulty Seeing? Yes Information not available 11/09/2015 What Is Your Level Of Caffeine Consumption? Moderate Information not available 11/09/2015 How Much Tobacco Do You Chew? None Information not available 11/09/2015 Are You Currently Employed? Yes Information not available 11/09/2015 Are You Deaf Or Do You Have Serious Difficulty Hearing? No Information not available 11/09/2015 What Type Of Diet Are You Following? REGULAR Information not available 11/09/2015 Which Illicit Or Recreational Drugs Have You Used? None Information not available 11/09/2015 Education 12 Information no t available 11/09/2015 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 [employer] Information not available 11/09/2015 Are There Any Guns Present In Your Home? Yes Information not available 11/09/2015 Hard Of Hearing Or Deaf In One Or Both Ears? 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 With Others Information not available 11/09/2015 How Many Children Do You Have? 4 Information not available 11/09/2015 Do You Use Protection During Sex? No Information not available 11/09/2015 Seat Belts Used Routinely Yes Information not available 11/09/2015 Are You Sexually Active? Yes Information not available 11/09/2015 Smoke Alarm In Home Yes Information not available 11/09/2015 Are You Passively Exposed To Smoke? No Information not available 11/09/2015 How Much Tobacco Do You Smoke? 1 PPD 1ppd X 10 Years eewig Information not available 11/09/2015 General Stress Level Low Information not available 11/09/2015 Do You Use Sunscreen Routinely? Yes Information not available 11/09/2015 Sex: Unknown Functional Status Question Answer Note LastModified by Organizat ion Details LastModified Time Do you have difficulty walking or climbing stairs? No Information not available 11/09/2015 Do you have difficulty doing errands alone? No Information not available 11/09/2015 Are you able to care for yourself? Yes Information n ot available 11/09/2015 Do you have difficulty dressing or bathing? No Information not available 11/09/2015 What is your exercise level? Moderate Information not available 11/09/2015 Mental Status Question Answer Note LastModified by Organization D etails LastModified Time Do you have difficulty concentrating, remembering or making decisions? No Information no t available 11/09/2015 Family History Relationship Description Onset Age of this Age Resolved Age Notes LastModified by Organization Details LastModified Time Paternal Grandmother Malignant tumor of breast 42 eewig Not available 2015 14:16:32 Father Malignant tumor of lung 82 smoker eewig Not available 2015 14:16:32 Medical History Condition Response Coronary Artery Disease N Other N High Blood Pressure N Atrial Fibrillation N Kidney or Bladder Problems N Thyroid Problems N GI Problems N Depression N COPD N Blood Clots N Skin Problems N Anemia N Heart Attack ([place]) N Anxiety Disorder N Diabetes N Muscle, Joint, or Bone Problems Y Seizures/Epilepsy N Acid Reflux (GERD) N Cancer N Stroke N Asthma N Allergies N High Cholesterol N Hepatitis N Liver Disease N Headaches N Heart Failure N Osteoporosis N Gynecological History Statement/Question Response Menses Monthly Y Age at First Child 20 LMP Obstetrics History GPAL:G 0 P 0 0 0 0 Past Encounters Encounter ID Performer Location Encounter Start Date Encounter Closed Date Diagnosis/Indication Diagnosis SNOMED-CT Code Diagnosis ICD10 Code Diagnosis Note [id number] ERICK Trejo (Adult Med) [address] [place] [address] 11/09/2015 13:42:20 11/09/2015 15:12:47 Adult health examination 898021747 Z00.00 50YO female here to establish care. Her insurance changed d/t her losing his job and her old PCP does not accept her new insurance. Screening for malignant neoplasm of colon 724954346 Z12.11 Excessive cerumen in ear canal 573117769 H61.21 As seen on exam - Removed - patient states that she can hear better with cerumen removed [id number] ERICK Treoj (Adult Med) [address] [place] [address] 11/29/2015 15:53:33 11/29/2015 18:12:11 Screening for malignant neoplasm of breast 077710968 Z12.31 Will send to [facility] - she has had imaging performed there for mammograms in the past Patient declined breast exam Anemia 087720446 D64.9 Will initiate iron tabs BIDPatient to complete labs in 3 monthsAdvi sed to purchase Miralax OTC if she develops constipati on Swollen abdomen 06976114 R14.0 Patient c/o swelling of her abdomen during the day x 2 months and she is very concernedS [facility] to further evaluate [id number] ERICK Trejo (Adult Med) [address] [place] [address] 12/15/2015 10:31:42 12/15/2015 12:18:06 Preventive procedure 622912799 Z29.9 Screening for malignant neoplasm of colon 905693526 Z12.11 Swollen abdomen 18252141 R14.0 Patient given referral number for GI again today in officeAdvi sed to see GI and have colonoscop y completed. Health Concerns Section Related Observation LastModified by Organization Detai ls LastModified Time None Recorded Concern Status LastModified by Organization Details LastModified Time None Recorded Advance Directives Directive None Recorded Payers Encounter Date Sequence Insurance Name Policy Number Policy Beatty Covered Member ID Beatty Member ID Guarantor Name 11/09/2015 1 [facility] [id number] Argelia Sagrario [id number] Argelia Sagrario 11/29/2015 1 [facility] [id number] Argelia Sagrario [id number] Argelia Sagrario 12/15/2015 1 [facility] [id number] [facility] [id number] [facility] Notes Date Note Type Note Provider Name and Address Organization Details Recorded Time 11/09/2015 text/html Here to carissa mcclelland. She states that she had a pap smear and mammogram in 10/2014 and that they were WNL. Martha Clayton PA-C Attn: Accounting,[address] [place], [address], [facility] 11/09/2015 15:15:11 11/29/2015 text/html Abdominal PainReported bypatient.Location :epigastric Quality:bloating(f eeling full) Severity:no pain (discomfort) Onset/Timing:gradu al (2 months); wax/wane Modifying Factors:she takes Tylenol at night and wakes up in the morning and feels better but when she goes about her day she feels pressure - unsure if it is related to food Associated Symptoms:no fever; no chills; no blood in the urine; no heartburn; no shortness of breath Other:denies possible pregnancyNotes:Her e for lab f/uAnnual GYNReported bypatient.Breast:N o breast pain; No breast lump; No nipple discharge; no hx/o abnormal mammogramsNotes:Pa p smear in 10/2014 WNL and no hx/o abnormal pap smearsLast mammogram 09/2014 - WNLPaternal grandmother: breast cancer - from breast cancer Martha Clayton PA-C Attn: Accounting,[address] [place], [address], [facility] 11/29/2015 17:24:41 12/15/2015 text/html Here for abdomin al CT results. Patient states that she still feels the bloating and discomfort but is slightly better. Per patient, she will have [employer] come February 07. [employer] stated that they would play for a colonoscopy as long as it was preventative. Martha Clayton PA-C Attn: Accounting,[address] [place], [address], [facility] 12/15/2015 11:17:47 OBGyn Episode No OBEpisode recorded.
== END 2024-05-24 14:38 | disposition home or self-care (01) ==
LOC: ANHIMG 14:40
PROVIDERS: PCP Nurse Practitioner Family; Visit Provider Family Medicine
DX: Z78.0 Asymptomatic menopausal state (principal); M85.89 Other specified disorders of bone density and structure, multiple sites
CPT/HCPCS: 77080

== ENCOUNTER 2024-08-02 14:01 | Outpatient (CLI) | payer OTHER, SELFPAY ==
--- NOTE | 2024-08-02 01:49 | CY_PTH ---
PATIENT: Argelia Zabala [id number] AGE/SX: 58/F ROOM: RE08/02/[address]: Cruz Sampson MD : 1965 BED: DIS: 08/02/2024 SPEC #: [id number] RECD: 08/03/24 08:02 STATUS: TY REQ #: [id number] GIO: 08/02/24 01:[address]: Cruz Sampson DEPT: [facility] Cytology RECD BY: Maribel Silva ENTERED: 08/03/24 08:04 SP TYPE: Cytology OT DR: Vicky Doe, [employer] Tissues: A - Flow Procedures: Flow Cytometry
[2024-08-02 14:23] LABS: Eosinophils Absolute Auto 0.1 K/mm3 (0-0.3); Eosinophils Percent Auto 2.9 % (0-4.4); Hematocrit 40.8 % (37.0-47.0); Hemoglobin 13.8 g/dL (12.0-15.0); Immature Granulocyte Absolute 0.01 K/mm3 (0.00-0.031); Immature Granulocyte Percent A 0.2 % (0-0.5); Lymphocytes Percent Auto 26.3 % (18.3-44.2); Mean Corpuscular HGB Conc 33.8 g/dl (32-36); Mean Corpuscular Hemoglobin 32.8 pg (26-34); Mean Corpuscular Volume 96.9 fl (80-100); Mean Platelet Volume 10.2 fl (7.4-10.4); Monocytes Absolute Auto 0.3 K/mm3 (0.1-0.6); Monocytes Percent Auto 6.5 % (2.6-8.5); Neutrophils Absolute Auto 2.6 K/mm3 (1.3-6.7); Neutrophils Percent Auto 63.1 % (45.5-73.1); Platelet Count Result 204 k/mm3 (150-375); Red Blood Count 4.21 M/mm3 (4.2-5.4); Red Cell Distribution Width 11.9 % (11.5-14.5); White Blood Count 4.2 K/mm3 (4.5-10.0)
--- OUTSIDE RECORDS SUMMARY | 2024-08-02 15:18 | XMS_ITS | Clinical Summary ---
Author Organization [facility] Address [address] [place] [address] Phone Care Team Providers Care Manager Underwriting Name Role Phone Unavailable Primary Care Provider Unavailabl e Allergies No known active allergies Medications No known medications Active Problems No known active problems Encounters Date Type Department Care Team Description 08/02/2024 1:30 PM CDT Office Visit [facility] Oncology and Hematology - [place] [address] [address] [address] Cruz Sampson MD Chronic anemia (Primary Dx); Neutropenia, unspecified type from Last 3 Months Family History Medical History Relation Name Comments No Known Problems Brother 1 No Known Problems Brother 2 No Known Problems Child 1 No Known Problems Child 2 No Known Problems Child 3 No Known Problems Child 4 Lung Cancer Father Heart Disease Mother No Known Problems Sister 1 No Known Problems Sister 2 Breast Cancer Sister 3 No Known Problems Sister 4 No Known Problems Sister 5 No Known Problems Sister 6 No Known Problems Sister 7 Colon Cancer Neg Hx Relation Name Status Comments Brother 1 Brother 2 Alive Child 1 Alive Child 2 Alive Child 3 Alive Child 4 Alive Father Mother Alive Sister 1 Alive Sister 2 Sister 3 Alive Sister 4 Alive Sister 5 Alive Sister 6 Alive Sister 7 Alive Social History Tobacco Use Types Packs/Day Years Used Date Smoking Tobacco: Former Cigarettes 1 10 0 08/02/1989 - 08/03/1999 Alcohol Use Standard Drinks/Week Comments Yes 0 (1 standard drink = 0.6 oz pur e alcohol) Socially Comments Unknown Sex and Gender Information Value Date Recorded Sex Assigned at Not on file Legal Sex Female 3:15 PM CDT Gender Identity Not on file Sexual Orientation Not on file Last Filed Vital Signs Vital Sign Reading Time Taken Comments Blood Pressure 166/92 08/02/2024 1:23 PM CDT Pulse 100 08/02/2024 1:20 PM CDT Temperature 36.6 C (97.9 F) 08/02/2024 1:20 PM CDT Respiratory Rate 15 08/02/2024 1:20 PM CDT Oxygen Saturation 98% 08/02/2024 1:20 PM CDT Inhaled Oxygen Concentration - - Weight 66.1 kg (145 lb 12.8 oz) 08/02/2024 1:20 PM CDT Height 162.6 cm (5' 4) 08/02/2024 1:20 PM CDT Body Mass Index 25.03 08/02/2024 1:20 PM CDT Plan of Treatment Upcoming Encounters Date Type Department Care Team (Late st Contact Info) Description 08/25/2024 4:30 PM CDT Telephone Check Up [facility] Oncology and Hematology [facility] [address] [facility] [address] [place] [address] Cruz Sampson MD [address] [facility] [address] [place] [address] Health Maintenance Due Date Last Done Comments Pre-Diabetes and Diabetes Screening 1965 HEPATITIS B VACCINES (1 of 3 - 19+ 3-dose series) 1984 HPV/Cotest (21-29) 1986 CERVICAL CANCER SCREENING 11/01/1995 HPV/Cotest (30-65) 11/01/1995 PAP SMEAR 11/01/1995 BREAST CANCER SCREENING 2005 FIT-DNA Q 3 years 2010 FIT/FOBT Q 1 year 2010 Flex Sig/CT Colonography Q 5 years 2010 ZOSTER VACCINE (1 of 2) 11/01/2015 DTAP/TDAP/TD VACCINES (2 - T d or Tdap) 03/27/2022 03/27/2012 INFLUENZA VACCINE (#1) 2023 4, 02/06/2022, 12/19/2020, Additional history exists COLORECTAL SCREENING 02/20/2026 02/21/2016 Colorectal Cancer Screening 02/20/2026 Preventative Visit- Commercial Completed 03/31/2024 , 03/05/2023 Insurance [address] [id number] [employer] [address] [address] Advance Directives For more information, please contact: [phone] * Full Code (Latest Code Status on File) Date Activated Date Inactivated Comments 02/21/2016 10:00 AM 02/21/2016 1:31 PM
--- OUTSIDE RECORDS SUMMARY | 2024-08-02 15:18 | XMS_ITS | Data Portability ---
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 Suspect costochondritis most likely. Recommend nonsteroidal pain medications. CT scan if condition worsens. Follow up p.r.n. [email or web address] Not available 03/20/2023 10:56:40 Plan of Treatment Reminders Order Date Submit Date Provider Last Modified By Organization Details Last Modified Time Details Appointments None recorded. Lab sjogren antibody panel (ssa, ssb, ro, la), serum 2024 025 [facility], [address], [place], [address], 08:53:26 vitamin B12 + folate, serum or blood - PLEASE FAX RESULTS TO . THANKS! 2024 025 [facility], [address], [place], [address], 5 04:23:41 NUPUR + rf (antinuclea r antibodies + rheumatoid factor), quantitativ e, serum 2024 025 [facility], [address], [place], [address], 5 14:58:51 TSH + free T4, serum 2024 025 [facility]ER[facility]ITA [facility], [address], [address], [place], [address], 14:09:41 CBC w/ auto diff 2024 025 [facility] Guajardo, [address], [place], [address], 14:09:42 iron + total iron-bindin g capacity (TIBC), serum 2024 025 FOSTERPERLITA Guajardo, [address], [place], [address], 14:09:39 ferritin, serum or plasma 2024 025 FOSTER Guajardo, [address], [place], [address], 14:09:47 lipid panel, serum 2024 025 FOSTER Guajardo, [address], [address], [place], [address], 14:09:46 hepatic function panel, serum 2024 025 F[facility]ER Guajardo, [address], [place], [address], 14:09:44 CMP, serum or plasma 2024 025 F[facility] Guajardo, [address], [place], [address], 14:09:43 HbA1c (hemoglobin A1c), blood 2024 025 FOSTER Guajardo, [address], [place], [address], 02/10/202 5 14:09:48 vitamin D, 25-hydroxy, total, serum 2024 025 [facility], [address], [place], [address], 5 14:09:49 hepatitis C virus Ab, serum 2024 025 [email or web address] [facility], [address], [place], [address], 5 08:22:02 TSH, serum or plasma 2023 024 [email or web address] Not available 4 08:34:00 lipid panel, serum 2023 024 FOSTER Not available 4 06:38:41 hepatic function panel, serum 2023 024 FOSTER Not available 4 06:38:42 BMP, serum or plasma 2023 024 FOSTER Not available 4 06:38:40 vitamin D, 25-hydroxy, total, serum 2023 024 FOSTER Not available 4 06:38:44 ferritin, serum or plasma 2023 024 FOSTER Not available 4 06:38:45 iron + total iron-bindin g capacity (TIBC), serum 2023 024 FOSTER Not available 4 06:38:43 CBC w/ auto diff 2023 024 FOSTER Not available 4 06:38:39 Referral general surgeon referral - Please call patient to schedule appointment . 2023 024 [email or web address] Aston Kruger MD, [address], [address], [place], [address], 4 13:58:52 Procedures None recorded. Surgeries None recorded. Imaging DEXA - *Please call pt to schedule* 2023 [email or web address] [place] [address] (Imaging), [address], [place], [address], 4 09:16:14 Medication Orders dexamethaso ne 0.5 mg/5 mL oral elixir 2024 025 [facility] [address] [facility], [place], [address], 11:56:40 Patient TargetsNo targets recorded. Patient Instructions Encounter Date Encounter Id Patient Instructions Last Modified By Organization Details Last Modified Time 06/09/2024 [id number] Labs ordered to rule out Sjogren's and rheumatoid arthritis as possible causes to her glossodynia. Additionally ordered a vitamin B12 and folate to rule out deficiency. Discussed that her symptoms may be in relation to her radiation treatments due to the close proximity. Advised to continue drinking plenty of fluids and chewing gum to aid in relief of symptoms. Additionally ordered dexamethasone oral elix for symptom management. We will follow-up when her lab results are available. [email or web address] Not available 06/09/2024 12:04:26 Reason for Referral General Surgeon Referral for Lipoma of skin Please call patient to schedule appointment. Referring Physician: Aletha Camargo, Family Medicine, Encounter Date: 03/05/2023 Results Created Date Observation Date Name Description Value Unit Range Abnormal Flag Note LastModifiedBy Organization Detail LastModifiedTime 02/11/2002/12/2023 URINA LYSIS , COMPL ETE W/REF ИВАН TO CULTU RE color YELLOW yellow normal Not Available [facility] [address] [place], [address], 02/13/2023 00:04:10 02/11/20 23 02/12/2023 URINA LYSIS , COMPL ETE W/REF ИВАН TO CULTU RE appearance CLEAR clear normal Not Available [facility] [address] [place], [address], 02/13/2023 00:04:10 02/11/20 23 02/12/2023 URINA LYSIS , COMPL ETE W/REF ИВАН TO CULTU RE specific gravity 1.010 1.001- 1.035 normal Not Available [address], [address], 02/13/2023 00:04:10 02/11/20 23 02/12/2023 URINA LYSIS , COMPL ETE W/REF ИВАН TO CULTU RE pH 6.5 5.0-8. 0 normal Not Available [address], [address], 02/13/2023 00:04:10 02/11/20 23 02/12/2023 URINA LYSIS , COMPL ETE W/REF ИВАН TO CULTU RE glucose NEGATI VE negati ve normal Not Available [address], [address], 02/13/2023 00:04:10 02/11/20 23 02/12/2023 URINA LYSIS , COMPL ETE W/REF ИВАН TO CULTU RE bilirubin NEGATI VE negati ve normal Not Available [address], [address], 02/13/2023 00:04:10 02/11/20 23 02/12/2023 URINA LYSIS , COMPL ETE W/REF ИВАН TO CULTU RE ketones NEGATI VE negati ve normal Not Available [address], [address], 02/13/2023 00:04:10 02/11/20 23 02/12/2023 URINA LYSIS , COMPL ETE W/REF ИВАН TO CULTU RE occult blood 1+ negati ve abnormal Not Available [address], [address], 02/13/2023 00:04:10 02/11/20 23 02/12/2023 URINA LYSIS , COMPL ETE W/REF ИВАН TO CULTU RE protein NEGATI VE negati ve normal Not Available [address], [address], 02/13/2023 00:04:10 02/11/20 23 02/12/2023 URINA LYSIS , COMPL ETE W/REF ИВАН TO CULTU RE nitrite POSITI VE negati ve abnormal Not Available [address], [address], 02/13/2023 00:04:10 02/11/20 23 02/12/2023 URINA LYSIS , COMPL ETE W/REF ИВАН TO CULTU RE leukocyte esterase 2+ negati ve abnormal Not Available [address], [address], 02/13/2023 00:04:10 02/11/20 23 02/12/2023 URINA LYSIS , COMPL ETE W/REF ИВАН TO CULTU RE WBC 40-60 /hpf < or = 5 abnormal Not Available [address], [address], 02/13/2023 00:04:10 02/11/20 23 02/12/2023 URINA LYSIS , COMPL ETE W/REF ИВАН TO CULTU RE RBC 3-10 /hpf < or = 2 abnormal Not Available [address], [address], 02/13/2023 00:04:10 02/11/20 23 02/12/2023 URINA LYSIS , COMPL ETE W/REF ИВАН TO CULTU RE squamous epithelial cells 0-5 /hpf < or = 5 Not Available [address], [address], 02/13/2023 00:04:10 02/11/20 23 02/12/2023 URINA LYSIS , COMPL ETE W/REF ИВАН TO CULTU RE bacteria MODERA TE /hpf none seen abnormal Not Available [address], [address], 02/13/2023 00:04:10 02/11/20 23 02/12/2023 URINA LYSIS , COMPL ETE W/REF ИВАН TO CULTU RE hyaline cast 0-5 /lpf none seen abnormal Not Available [address], [address], 02/13/2023 00:04:10 02/11/20 23 02/12/2023 URINA LYSIS , COMPL ETE W/REF ИВАН TO CULTU RE note This urine was michael zed for the prese nce of WBC, RBC, bacte trisha, casts , and other forme d eleme nts. Only those eleme nts seen were repor padmini. Not Available [address], [address], 02/13/2023 00:04:10 02/11/20 23 02/12/2023 URINA LYSIS , COMPL ETE W/REF ИВАН TO CULTU RE copy(ies) sent to: [facility] ) [address] [place] [address] Not Available [address], [address], 02/13/2023 00:04:10 02/11/20 23 02/12/2023 REFLE XIVE URINE CULTU RE reflexive urine culture CULTU RE INDIC ATED - RESUL TS TO FOLLO W Not Available [facility] [address] [place], [address], 02/13/2023 00:04:12 02/11/20 23 02/12/2023 REFLE XIVE URINE CULTU RE copy(ies) sent to: [facility] [address] [place] [address] Not Available [address] [place], [address], 02/13/2023 00:04:12 02/11/20 23 02/12/2023 MARCOS Yeung EDUCA TION TRACK ING client education tracking [...] nt numbe r and accou nt name Clien t addre ss Clien t phone and fax numbe r NPI numbe r of order ing physi fauzia along with the physi fauzia name. Not Available [facility] [address] [place], [address], 02/13/2023 00:04:13 02/11/20 23 02/12/2023 MARCOS Yeung EDUCA TION TRACK ING copy(ies) sent to: [facility] [address] [facility] [place] [address] Not Available [facility] [address] [address] , [place], [address], 02/13/2023 00:04:13 02/11/20 23 02/12/2023 CULTU RE, URINE , ROUTI NE culture, urine, routine SEE NOTE abnormal CULTU RE, URINE , ROUTI NE Micro Numbe r: [id number] Test Statu s: Final Speci men [...] lexin and lorac arbef . Not Available [facility] [address] [place], [address], 02/13/2023 00:04:13 02/11/2002/12/2023 CULTU RE, URINE , ROUTI NE copy(ies) sent to: [facility] [address] [place] [address] Not Available [facility] [address] [place], [address], 02/13/2023 00:04:13 02/11/20 23 02/10/2023 urina lysis , dipst ick Leukocytes (reference range: negative christopher/ l) Small Not Available [address], [place], [address], 02/10/2023 13:54:39 02/11/20 23 02/10/2023 urina lysis , dipst ick Nitrite (reference rage: negative mg/dl) positi ve Not Available [address], [place], [address], 02/10/2023 13:54:39 02/11/20 23 02/10/2023 urina lysis , dipst ick Urobilinogen (reference range: 0.2-1 mg/dl) 0.2 Not Available [address], [place], [address], 02/10/2023 13:54:39 02/11/20 23 02/10/2023 urina lysis , dipst ick Protein (reference range: negative mg/dl) Negati ve Not Available [address], [place], [address], 02/10/2023 13:54:39 02/11/20 23 02/10/2023 urina lysis , dipst ick pH (reference range: 5-7) 6.5 Not Available [address], [place], [address], 02/10/2023 13:54:39 02/11/20 23 02/10/2023 urina lysis , dipst ick Blood (reference range: negative Donald/ l) Small Not Available [address], [place], [address], 02/10/2023 13:54:39 02/11/20 23 02/10/2023 urina lysis , dipst ick Specific Evans (reference range: 1.005-1.030) 1.015 Not Available [address], [place], [address], 02/10/2023 13:54:39 02/11/20 23 02/10/2023 urina lysis , dipst ick Ketone (reference range: negative mg/dl) Negati ve Not Available [address], [place], [address], 02/10/2023 13:54:39 02/11/20 23 02/10/2023 urina lysis , dipst ick Bilirubin (reference range: negative mg/dl) Negati ve Not Available [address], [place], [address], 02/10/2023 13:54:39 02/11/20 23 02/10/2023 urina lysis , dipst ick Glucose (reference range: negative mg/dl) Negati ve Not Available [address], [place], [address], 02/10/2023 13:54:39 02/11/20 23 02/10/2023 urina lysis , dipst ick Appearance Clear Not Available [address], [place], [address], 02/10/2023 13:54:39 02/11/20 23 02/10/2023 urina lysis , dipst ick Color Pale Yellow Not Available [address], [place], [address], 02/10/2023 13:54:39 03/07/19 24 03/07/2023 CBC/D IFF AMBIG UOUS DEFAU LT WBC 3.6 x10e3 /uL 3.4-10 .8 Not Available [facility] ([facility]) [address] [facility], [place], [address], 03/08/2023 06:38:38 03/07/19 24 03/07/2023 CBC/D IFF AMBIG UOUS DEFAU LT RBC 4.58 x10e6 /uL 3.77-5 .28 Not Available [facility] ([facility]) [address] [facility], [place], [address], 03/08/2023 06:38:38 03/07/19 24 03/07/2023 CBC/D IFF AMBIG UOUS DEFAU LT hemoglobin 14.3 g/dL 11.1-1 5.9 Not Available [facility] ([facility]) [address] [facility], [place], [address], 03/08/2023 06:38:38 03/07/19 24 03/07/2023 CBC/D IFF AMBIG UOUS DEFAU LT hematocrit 42.3 % 34.0-4 6.6 Not Available [facility] ([facility]) [address] [facility], [place], [address], 03/08/2023 06:38:38 03/07/19 24 03/07/2023 CBC/D IFF AMBIG UOUS DEFAU LT MCV 92 fL 79-97 Not Available [facility] ([facility]) [address] [facility], [place], [address], 03/08/2023 06:38:38 03/07/19 24 03/07/2023 CBC/D IFF AMBIG UOUS DEFAU LT MCH 31.2 pg 26.6-3 3.0 Not Available [facility] ([facility]) [address] [facility], [place], [address], 03/08/2023 06:38:38 03/07/19 24 03/07/2023 CBC/D IFF AMBIG UOUS DEFAU LT MCHC 33.8 g/dL 31.5-3 5.7 Not Available [facility] ([facility]) [address], [place], [address], 03/08/2023 06:38:38 03/07/19 24 03/07/2023 CBC/D IFF AMBIG UOUS DEFAU LT RDW 12.2 % 11.7-1 5.4 Not Available [facility] ([facility]) [address], [place], [address], 03/08/2023 06:38:38 03/07/19 24 03/07/2023 CBC/D IFF AMBIG UOUS DEFAU LT platelets 227 x10e3 /uL 150-45 0 Not Available [facility] ([facility]) [address], [place], [address], 03/08/2023 06:38:38 03/07/19 24 03/07/2023 CBC/D IFF AMBIG UOUS DEFAU LT neutrophils 55 % not estab. Not Available [facility] ([facility]) [address], [place], [address], 03/08/2023 06:38:38 03/07/19 24 03/07/2023 CBC/D IFF AMBIG UOUS DEFAU LT lymphs 28 % not estab. Not Available [facility] ([facility]) [address] [facility], [place], [address], 03/08/2023 06:38:38 03/07/19 24 03/07/2023 CBC/D IFF AMBIG UOUS DEFAU LT monocytes 11 % not estab. Not Available [facility] ([facility]) [address] [facility], [place], [address], 03/08/2023 06:38:38 03/07/19 24 03/07/2023 CBC/D IFF AMBIG UOUS DEFAU LT eos 5 % not estab. Not Available [facility] ([facility]) [address] [facility], [place], [address], 03/08/2023 06:38:38 03/07/19 24 03/07/2023 CBC/D IFF AMBIG UOUS DEFAU LT basos 1 % not estab. Not Available [facility] ([facility]) [address] [facility], [place], [address], 03/08/2023 06:38:38 03/07/19 24 03/07/2023 CBC/D IFF AMBIG UOUS DEFAU LT immature cells PATIENT BILLER Not Available [facility] ([facility]) [address] [facility], [place], [address], 03/08/2023 06:38:38 03/07/19 24 03/07/2023 CBC/D IFF AMBIG UOUS DEFAU LT neutrophils (absolute) 2.0 x10e3 /uL 1.4-7. 0 Not Available [facility] ([facility]) [address] [facility], [place], [address], 03/08/2023 06:38:38 03/07/19 24 03/07/2023 CBC/D IFF AMBIG UOUS DEFAU LT lymphs (absolute) 1.0 x10e3 /uL 0.7-3. 1 Not Available [facility] ([facility]) [address] [place], [address], 03/08/2023 06:38:38 03/07/19 24 03/07/2023 CBC/D IFF AMBIG UOUS DEFAU LT monocytes(ab solute) 0.4 x10e3 /uL 0.1-0. 9 Not Available [facility] ([facility]) [address] [place], [address], 03/08/2023 06:38:38 03/07/19 24 03/07/2023 CBC/D IFF AMBIG UOUS DEFAU LT eos (absolute) 0.2 x10e3 /uL 0.0-0. 4 Not Available [facility] ([facility]) [address] [place], [address], 03/08/2023 06:38:38 03/07/19 24 03/07/2023 CBC/D IFF AMBIG UOUS DEFAU LT baso (absolute) 0.0 x10e3 /uL 0.0-0. 2 Not Available [facility] ([facility]) [address] [facility], [place], [address], 03/08/2023 06:38:38 03/07/19 24 03/07/2023 CBC/D IFF AMBIG UOUS DEFAU LT immature granulocytes 0 % not estab. Not Available [facility] ([facility]) [address] [place], [address], 03/08/2023 06:38:38 03/07/19 24 03/07/2023 CBC/D IFF AMBIG UOUS DEFAU LT immature grans (abs) 0.0 x10e3 /uL 0.0-0. 1 Not Available [facility] ([facility]) [address] [facility], [place], [address], 03/08/2023 06:38:38 03/07/19 24 03/07/2023 CBC/D IFF AMBIG UOUS DEFAU LT NRBC PATIENT BILLER Not Available [facility] ([facility]) [address] [place], [address], 03/08/2023 06:38:38 03/07/19 24 03/07/2023 CBC/D IFF AMBIG UOUS DEFAU LT hematology comments: PATIENT BILLER A hand- writt en panel /prof ile was recei tammi from your offic e. In accor dance with the [facility] Ambig uous Test Code Polic y dated August 2002, we have assig pito CBC with Rena lizama/Faoroq yeung, Test Code #[address] If this is not the testi ng you wishe d to recei ve on this speci men, pleas e conta ct the [facility] Marcos t Inqui ry/ Techn ical Servi rashida Depar tment to marlon fy the test order . We appre ciate your busin ess. Not Available [facility] ([facility]) [address] [facility] [place], [address], 03/08/2023 06:38:38 03/07/19 24 03/08/2023 BASIC METAB OLIC PANEL (8) glucose 92 mg/dL 70-99 Not Available [facility] ([facility]) [address] [facility] [place], [address], 03/08/2023 06:38:40 03/07/19 24 03/08/2023 BASIC METAB OLIC PANEL (8) BUN 17 mg/dL 6-24 Not Available [facility] ([facility]) [address] [facility] [place], [address], 03/08/2023 06:38:40 03/07/19 24 03/08/2023 BASIC METAB OLIC PANEL (8) creatinine 0.69 mg/dL 0.57-1 .00 Not Available [facility] ([facility]) [address] [facility] [place], [address], 03/08/2023 06:38:40 03/07/19 24 03/08/2023 BASIC METAB OLIC PANEL (8) eGFR 101 mL/mi n/1.7 3 >59 Not Available [facility] ([facility]) [address] [facility] [place], [address], 03/08/2023 06:38:40 03/07/19 24 03/08/2023 BASIC METAB OLIC PANEL (8) BUN/creatini ne ratio 25 9-23 above high normal Not Available [facility] ([facility]) [address] [facility] [place], [address], 03/08/2023 06:38:40 03/07/19 24 03/08/2023 BASIC METAB OLIC PANEL (8) sodium 138 mmol/ L 134-14 4 Not Available [facility] ([facility]) [address] [place], [address], 03/08/2023 06:38:40 03/07/19 24 03/08/2023 BASIC METAB OLIC PANEL (8) potassium 4.5 mmol/ L 3.5-5. 2 Not Available [facility] ([facility]) [address] [place], [address], 03/08/2023 06:38:40 03/07/19 24 03/08/2023 BASIC METAB OLIC PANEL (8) chloride 100 mmol/ L 96-106 Not Available [facility] ([facility]) [address] [place], [address], 03/08/2023 06:38:40 03/07/19 24 03/08/2023 BASIC METAB OLIC PANEL (8) carbon dioxide, total 24 mmol/ L 20-29 Not Available [facility] ([facility]) [address] [place], [address], 03/08/2023 06:38:40 03/07/19 24 03/08/2023 BASIC METAB OLIC PANEL (8) calcium 9.7 mg/dL 8.7-10 .2 Not Available [facility] ([facility]) [address] [place], [address], 03/08/2023 06:38:40 03/07/19 24 03/08/2023 LIPID PANEL cholesterol, total 257 mg/dL 100-19 9 above high normal Not Available [facility] ([facility]) [address] [place], [address], 03/08/2023 06:38:41 03/07/19 24 03/08/2023 LIPID PANEL triglyceride s 88 mg/dL 0-149 Not Available [facility] ([facility]) [address] [place], [address], 03/08/2023 06:38:41 03/07/19 24 03/08/2023 LIPID PANEL HDL cholesterol 75 mg/dL >39 Not Available [facility] ([facility]) [address] [place], [address], 03/08/2023 06:38:41 03/07/19 24 03/08/2023 LIPID PANEL VLDL cholesterol megan 15 mg/dL 5-40 Not Available [facility] ([facility]) [address] [place], [address], 03/08/2023 06:38:41 03/07/19 24 03/08/2023 LIPID PANEL LDL chol calc ([facility]) 167 mg/dL 0-99 above high normal Not Available [facility] ([facility]) [address] [place], [address], 03/08/2023 06:38:41 03/07/19 24 03/08/2023 LIPID PANEL comment: PATIENT BILLER Not Available [facility] ([facility]) [address] [place], [address], 03/08/2023 06:38:41 03/07/19 24 03/08/2023 HEPAT IC FUNCT ION PANEL (7) protein, total 8.0 g/dL 6.0-8. 5 Not Available [facility] ([facility]) [address] [facility] [place], [address], 03/08/2023 06:38:42 03/07/19 24 03/08/2023 HEPAT IC FUNCT ION PANEL (7) albumin 4.8 g/dL 3.8-4. 9 Not Available [facility] ([facility]) [address] [facility] [place], [address], 03/08/2023 06:38:42 03/07/19 24 03/08/2023 HEPAT IC FUNCT ION PANEL (7) bilirubin, total 0.8 mg/dL 0.0-1. 2 Not Available [facility] ([facility]) [address] [facility] [place], [address], 03/08/2023 06:38:42 03/07/19 24 03/08/2023 HEPAT IC FUNCT ION PANEL (7) bilirubin, direct 0.17 mg/dL 0.00-0 .40 Not Available [facility] ([facility]) [address] [place], [address], 03/08/2023 06:38:42 03/07/19 24 03/08/2023 HEPAT IC FUNCT ION PANEL (7) alkaline phosphatase 115 IU/L 44-121 Not Available [facility] ([facility]) [address] [facility] [place], [address], 03/08/2023 06:38:42 03/07/19 24 03/08/2023 HEPAT IC FUNCT ION PANEL (7) AST (SGOT) 43 IU/L 0-40 above high normal Not Available [facility] ([facility]) [address] [place], [address], 03/08/2023 06:38:42 03/07/19 24 03/08/2023 HEPAT IC FUNCT ION PANEL (7) ALT (SGPT) 71 IU/L 0-32 above high normal Not Available [facility] ([facility]) [address] [place], [address], 03/08/2023 06:38:42 03/07/19 24 03/08/2023 IRON AND TIBC iron bind.cap.(TI BC) 336 ug/dL 250-45 0 Not Available [facility] ([facility]) [address] [place], [address], 03/08/2023 06:38:43 03/07/19 24 03/08/2023 IRON AND TIBC UIBC 195 ug/dL 131-42 5 Not Available [facility] ([facility]) [address] [place], [address], 03/08/2023 06:38:43 03/07/19 24 03/08/2023 IRON AND TIBC iron 141 ug/dL 27-159 Not Available [facility] ([facility]) [address] [facility], [place], [address], 03/08/2023 06:38:43 03/07/19 24 03/08/2023 IRON AND TIBC iron saturation 42 % 15-55 Not Available [facility] ([facility]) [address] [facility], [place], [address], 03/08/2023 06:38:43 03/07/19 24 03/08/2023 TSH TSH 0.896 uIU/m L 0.450- 4.500 Not Available [facility] ([facility]) [address] [facility], [place], [address], 03/08/2023 06:38:44 03/07/19 24 03/08/2023 VITAM IN [...] 1. IOM (Inst itute of Medic ine). 2009. Dieta ry refer ence erasmo es for calci um and D. Luci euceda [place]: The Natio nal [facility] Press . 2. Live melendez [place], Nicho morales [place], Papito off-F errar i KRAUS, et al. Evalu ation , treat ment, and preve ntion of vitam in D defic iency : an Endoc rine Socie ty clini megan pract ice guide line. JCEM. 2010; 96(7) :1911 -30. Not Available [facility] ([facility]) [address], [place], [address], 03/08/2023 06:38:44 03/07/19 24 03/08/2023 MARJ TIN ferritin 127 NG/mL 15-150 Not Available [facility] ([facility]) [address] [facility] [address], [place], [address], 03/08/2023 06:38:45 03/07/19 24 03/07/2023 AMBIG ABBRE [...] panel . We have rosa isela sheldon Basic Metab olic Panel (8), Test [...] ciate your busin ess. Not Available [facility] ([facility]) [address] [facility] [address], [place], [address], 03/08/2023 06:38:46 03/07/19 24 03/07/2023 AMBIG ABBRE [...] ciate your busin ess. Not Available [facility] ([facility]) [address] [facility] [address], [place], [address], 03/08/2023 06:38:47 03/07/19 24 03/07/2023 AMBCHRISTOPHER ABBRE V HFP7 DEFAU LT ambchristopher abbrev hfp7 default Commen t A hand- writt en panel /prof iain was recei tammi from your offic e. In accor dance with the [facility] Tesha uous Test Code Polic y dated August 2002, we have compl eted your order by using the close st curre ntly or forme rly recog nized AMA panel . We have assig pito Hepat ic Funct ion Panel (7), Test Code #[address]. If this is not the testi ng you wishe d to recei ve on this speci men, pleas e conta ct the [facility] Clien t Inqui ry/Te chnic al Servi rashida Depar tment to marlon vasquez the test order . We appre ciate your busin ess. Not Available [facility] ([facility]) [address] [facility], [place], [address], 03/08/2023 06:38:48 04/03/19 25 04/04/2024 FE+TI BC+TR ANSF iron bind.cap.(TI BC) 307 ug/dL 250-45 0 normal Not Available [facility] ([facility]) [address] [facility], [place], [address], 04/05/2024 14:09:39 04/03/19 25 04/04/2024 FE+TI BC+TR ANSF UIBC 181 ug/dL 131-42 5 normal Not Available [facility] ([facility]) [address] [facility], [place], [address], 04/05/2024 14:09:39 04/03/19 25 04/04/2024 FE+TI BC+TR ANSF iron 126 ug/dL 27-159 normal Not Available [facility] ([facility]) [address] [place], [address], 04/05/2024 14:09:39 04/03/19 25 04/04/2024 FE+TI BC+TR ANSF iron saturation 41 % 15-55 normal Not Available [facility] ([facility]) [address] [place], [address], 04/05/2024 14:09:39 04/03/19 25 04/04/2024 FE+TI BC+TR ANSF transferrin 260 mg/dL 192-36 4 normal Not Available [facility] ([facility]) [address] [place], [address], 04/05/2024 14:09:39 04/03/19 25 04/04/2024 TSH+F REE T4 TSH 0.800 uIU/m L 0.450- 4.500 normal Not Available [facility] ([facility]) [address] [place], [address], 04/05/2024 14:09:41 04/03/19 25 04/04/2024 TSH+F REE T4 T4,free(dire ct) 1.28 NG/dL 0.82-1 .77 normal Not Available [facility] ([facility]) [address] [place], [address], 04/05/2024 14:09:41 04/03/19 25 04/04/2024 CBC WITH DIFFE RENTI AL/PL ATELE T WBC 2.8 x10e3 /uL 3.4-10 .8 below low normal Not Available [facility] ([facility]) [address] [place], [address], 04/05/2024 14:09:42 04/03/19 25 04/04/2024 CBC WITH DIFFE RENTI AL/PL ATELE T RBC 4.26 x10e6 /uL 3.77-5 .28 normal Not Available [facility] ([facility]) [address] [facility] [place], [address], 04/05/2024 14:09:42 04/03/19 25 04/04/2024 CBC WITH DIFFE RENTI AL/PL ATELE T hemoglobin 13.6 g/dL 11.1-1 5.9 normal Not Available [facility] ([facility]) [address] [place], [address], 04/05/2024 14:09:42 04/03/19 25 04/04/2024 CBC WITH DIFFE RENTI AL/PL ATELE T hematocrit 41.1 % 34.0-4 6.6 normal Not Available [facility] ([facility]) [address] [place], [address], 04/05/2024 14:09:42 04/03/19 25 04/04/2024 CBC WITH DIFFE RENTI AL/PL ATELE T MCV 97 fL 79-97 normal Not Available [facility] ([facility]) [address] [place], [address], 04/05/2024 14:09:42 04/03/19 25 04/04/2024 CBC WITH DIFFE RENTI AL/PL ATELE T MCH 31.9 pg 26.6-3 3.0 normal Not Available [facility] ([facility]) [address] [place], [address], 04/05/2024 14:09:42 04/03/19 25 04/04/2024 CBC WITH DIFFE RENTI AL/PL ATELE T MCHC 33.1 g/dL 31.5-3 5.7 normal Not Available [facility] ([facility]) [address] [place], [address], 04/05/2024 14:09:42 04/03/19 25 04/04/2024 CBC WITH DIFFE RENTI AL/PL ATELE T RDW 12.6 % 11.7-1 5.4 Not Available [facility] ([facility]) [address] [facility], [place], [address], 04/05/2024 14:09:42 04/03/19 25 04/04/2024 CBC WITH DIFFE RENTI AL/PL ATELE T platelets 214 x10e3 /uL 150-45 0 normal Not Available [facility] ([facility]) [address] [facility], [place], [address], 04/05/2024 14:09:42 04/03/19 25 04/04/2024 CBC WITH DIFFE RENTI AL/PL ATELE T neutrophils 43 % not estab. normal Not Available [facility] ([facility]) [address] [facility], [place], [address], 04/05/2024 14:09:42 04/03/19 25 04/04/2024 CBC WITH DIFFE RENTI AL/PL ATELE T lymphs 39 % not estab. normal Not Available [facility] ([facility]) [address] [facility], [place], [address], 04/05/2024 14:09:42 04/03/19 25 04/04/2024 CBC WITH DIFFE RENTI AL/PL ATELE T monocytes 11 % not estab. normal Not Available [facility] ([facility]) [address] [facility], [place], [address], 04/05/2024 14:09:42 04/03/19 25 04/04/2024 CBC WITH DIFFE RENTI AL/PL ATELE T eos 5 % not estab. normal Not Available [facility] ([facility]) [address] [facility], [place], [address], 04/05/2024 14:09:42 04/03/19 25 04/04/2024 CBC WITH DIFFE RENTI AL/PL ATELE T basos 2 % not estab. normal Not Available [facility] ([facility]) [address] [facility], [place], [address], 04/05/2024 14:09:42 04/03/19 25 04/04/2024 CBC WITH DIFFE RENTI AL/PL ATELE T immature cells PATIENT BILLER Not Available [facility] ([facility]) [address] [place], [address], 04/05/2024 14:09:42 04/03/19 25 04/04/2024 CBC WITH DIFFE RENTI AL/PL ATELE T neutrophils (absolute) 1.2 x10e3 /uL 1.4-7. 0 below low normal Not Available [facility] ([facility]) [address] [place], [address], 04/05/2024 14:09:42 04/03/19 25 04/04/2024 CBC WITH DIFFE RENTI AL/PL ATELE T lymphs (absolute) 1.1 x10e3 /uL 0.7-3. 1 normal Not Available [facility] ([facility]) [address] [place], [address], 04/05/2024 14:09:42 04/03/19 25 04/04/2024 CBC WITH DIFFE RENTI AL/PL ATELE T monocytes(ab solute) 0.3 x10e3 /uL 0.1-0. 9 normal Not Available [facility] ([facility]) [address] [place], [address], 04/05/2024 14:09:42 04/03/19 25 04/04/2024 CBC WITH DIFFE RENTI AL/PL ATELE T eos (absolute) 0.1 x10e3 /uL 0.0-0. 4 normal Not Available [facility] ([facility]) [address] [place], [address], 04/05/2024 14:09:42 04/03/19 25 04/04/2024 CBC WITH DIFFE RENTI AL/PL ATELE T baso (absolute) 0.1 x10e3 /uL 0.0-0. 2 normal Not Available [facility] ([facility]) [address] [facility] [place], [address], 04/05/2024 14:09:42 04/03/19 25 04/04/2024 CBC WITH DIFFE RENTI AL/PL ATELE T immature granulocytes 0 % not estab. Not Available [facility] ([facility]) [address] [facility], [place], [address], 04/05/2024 14:09:42 04/03/19 25 04/04/2024 CBC WITH DIFFE RENTI AL/PL ATELE T immature grans (abs) 0.0 x10e3 /uL 0.0-0. 1 Not Available [facility] ([facility]) [address] [facility], [place], [address], 04/05/2024 14:09:42 04/03/19 25 04/04/2024 CBC WITH DIFFE RENTI AL/PL ATELE T NRBC PATIENT BILLER Not Available [facility] ([facility]) [address] [facility], [place], [address], 04/05/2024 14:09:42 04/03/19 25 04/04/2024 CBC WITH DIFFE RENTI AL/PL ATELE T hematology comments: PATIENT BILLER Not Available [facility] ([facility]) [address] [facility], [place], [address], 04/05/2024 14:09:42 04/03/19 25 04/04/2024 COMP. METAB OLIC PANEL (14) glucose 102 mg/dL 70-99 above high normal Not Available [facility] ([facility]) [address] [facility], [place], [address], 04/05/2024 14:09:43 04/03/19 25 04/04/2024 COMP. METAB OLIC PANEL (14) BUN 20 mg/dL 6-24 normal Not Available [facility] ([facility]) [address] [place], [address], 04/05/2024 14:09:43 04/03/19 25 04/04/2024 COMP. METAB OLIC PANEL (14) creatinine 0.57 mg/dL 0.57-1 .00 normal Not Available [facility] ([facility]) [address] [facility] [place], [address], 04/05/2024 14:09:43 04/03/19 25 04/04/2024 COMP. METAB OLIC PANEL (14) eGFR 105 mL/mi n/1.7 3 >59 normal Not Available [facility] ([facility]) [address] [facility] [place], [address], 04/05/2024 14:09:43 04/03/19 25 04/04/2024 COMP. METAB OLIC PANEL (14) BUN/creatini ne ratio 35 9-23 above high normal Not Available [facility] ([facility]) [address] [facility] [place], [address], 04/05/2024 14:09:43 04/03/19 25 04/04/2024 COMP. METAB OLIC PANEL (14) sodium 138 mmol/ L 134-14 4 normal Not Available [facility] ([facility]) [address] [facility] [place], [address], 04/05/2024 14:09:43 04/03/19 25 04/04/2024 COMP. METAB OLIC PANEL (14) potassium 4.0 mmol/ L 3.5-5. 2 normal Not Available [facility] ([facility]) [address] [facility] [place], [address], 04/05/2024 14:09:43 04/03/19 25 04/04/2024 COMP. METAB OLIC PANEL (14) chloride 102 mmol/ L 96-106 normal Not Available [facility] ([facility]) [address] [facility] [place], [address], 04/05/2024 14:09:43 04/03/19 25 04/04/2024 COMP. METAB OLIC PANEL (14) carbon dioxide, total 24 mmol/ L 20-29 normal Not Available [facility] ([facility]) [address] [facility] [place], [address], 04/05/2024 14:09:43 04/03/19 25 04/04/2024 COMP. METAB OLIC PANEL (14) calcium 9.6 mg/dL 8.7-10 .2 normal Not Available [facility] ([facility]) [address] [facility] [place], [address], 04/05/2024 14:09:43 04/03/19 25 04/04/2024 COMP. METAB OLIC PANEL (14) protein, total 7.6 g/dL 6.0-8. 5 normal Not Available [facility] ([facility]) [address] [place], [address], 04/05/2024 14:09:43 04/03/19 25 04/04/2024 COMP. METAB OLIC PANEL (14) albumin 4.5 g/dL 3.8-4. 9 normal Not Available [facility] ([facility]) [address] [facility] [place], [address], 04/05/2024 14:09:43 04/03/19 25 04/04/2024 COMP. METAB OLIC PANEL (14) globulin, total 3.1 g/dL 1.5-4. 5 Not Available [facility] ([facility]) [address] [facility] [place], [address], 04/05/2024 14:09:43 04/03/19 25 04/04/2024 COMP. METAB OLIC PANEL (14) bilirubin, total 0.8 mg/dL 0.0-1. 2 normal Not Available [facility] ([facility]) [address] [facility] [place], [address], 04/05/2024 14:09:43 04/03/19 25 04/04/2024 COMP. METAB OLIC PANEL (14) alkaline phosphatase 87 IU/L 44-121 normal Not Available [facility] ([facility]) [address] [facility] [place], [address], 04/05/2024 14:09:43 04/03/19 25 04/04/2024 COMP. METAB OLIC PANEL (14) AST (SGOT) 21 IU/L 0-40 normal Not Available [facility] ([facility]) [address] [facility] [place], [address], 04/05/2024 14:09:43 04/03/19 25 04/04/2024 COMP. METAB OLIC PANEL (14) ALT (SGPT) 26 IU/L 0-32 normal Not Available [facility] ([facility]) [address] [facility] [place], [address], 04/05/2024 14:09:43 04/03/19 25 04/04/2024 HEPAT IC FUNCT ION PANEL (7) bilirubin, direct 0.21 mg/dL 0.00-0 .40 normal Not Available [facility] ([facility]) [address] [facility] [place], [address], 04/05/2024 14:09:44 04/03/19 25 04/04/2024 LIPID PANEL cholesterol, total 236 mg/dL 100-19 9 above high normal Not Available [facility] ([facility]) [address] [facility] [place], [address], 04/05/2024 14:09:46 04/03/19 25 04/04/2024 LIPID PANEL triglyceride s 65 mg/dL 0-149 normal Not Available [facility] ([facility]) [address] [facility] [place], [address], 04/05/2024 14:09:46 04/03/19 25 04/04/2024 LIPID PANEL HDL cholesterol 71 mg/dL >39 normal Not Available [facility] ([facility]) [address] [facility] [place], [address], 04/05/2024 14:09:46 04/03/19 25 04/04/2024 LIPID PANEL VLDL cholesterol megan 11 mg/dL 5-40 Not Available [facility] ([facility]) [address] [place], [address], 04/05/2024 14:09:46 04/03/19 25 04/04/2024 LIPID PANEL LDL chol calc ([facility]) 154 mg/dL 0-99 above high normal Not Available [facility] ([facility]) [address] [place], [address], 04/05/2024 14:09:46 04/03/19 25 04/04/2024 LIPID PANEL LDL calc comment: PATIENT BILLER Not Available [facility] ([facility]) [address] [place], [address], 04/05/2024 14:09:46 04/03/19 25 04/04/2024 MARJ TIN, (SERI AL) ferritin 150 NG/mL 15-150 Not Available [facility] ([facility]) [address] [place], [address], 04/05/2024 14:09:47 04/03/19 25 04/05/2024 MARJ TIN, (SERI AL) pdf . Not Available [facility] ([facility]) [address] [place], [address], 04/05/2024 14:09:47 04/03/19 25 04/04/2024 HEMOG LOBIN A1C hemoglobin A1C 5.2 % 4.8-5. 6 normal Predi abete s: 5.7 - 6.4 Diabe twyla: >6.4 Glyce vernon contr ol for adult s with diabe twyla: <7.0 Not Available [facility] ([facility]) [address] [place], [address], 04/05/2024 14:09:48 04/03/19 25 04/04/2024 VITAM IN [...] um and D. Luci euceda [place]: [facility] . 2. Live melendez [place], Nicho morales [place], Papito off-F damián i KRAUS, et al. Evalu ation , treat ment, and preve ntion of vitam in D defic iency : an Endoc rine Socie ty clini megan pract ice guide line. JCEM. 2010; 96(7) :1911 -30. Not Available [facility] ([facility]) [address] [facility], [place], [address], 04/05/2024 14:09:49 04/03/19 25 04/04/2024 HCV ANTIB [...] e HCV infec tion. Not Available [facility] ([facility]) [address] [facility], [place], [address], 04/05/2024 14:09:50 04/10/19 25 04/11/2024 CBC WITH DIFFE RENTI AL/PL ATELE T WBC 2.9 x10e3 /uL 3.4-10 .8 below low normal Not Available [facility] ([facility]) [address] [facility], [place], [address], 04/11/2024 04:07:07 04/10/1904/11/2024 CBC WITH DIFFE RENTI AL/PL ATELE T RBC 4.12 x10e6 /uL 3.77-5 .28 normal Not Available [facility] ([facility]) [address] [facility], [place], [address], 04/11/2024 04:07:07 04/10/1904/11/2024 CBC WITH DIFFE RENTI AL/PL ATELE T hemoglobin 13.2 g/dL 11.1-1 5.9 normal Not Available [facility] ([facility]) [address] [facility], [place], [address], 04/11/2024 04:07:07 04/10/1904/11/2024 CBC WITH DIFFE RENTI AL/PL ATELE T hematocrit 40.0 % 34.0-4 6.6 normal Not Available [facility] ([facility]) [address] [place], [address], 04/11/2024 04:07:07 04/10/19 25 04/11/2024 CBC WITH DIFFE RENTI AL/PL ATELE T MCV 97 fL 79-97 normal Not Available [facility] ([facility]) [address] [place], [address], 04/11/2024 04:07:07 04/10/1904/11/2024 CBC WITH DIFFE RENTI AL/PL ATELE T MCH 32.0 pg 26.6-3 3.0 normal Not Available [facility] ([facility]) [address] [place], [address], 04/11/2024 04:07:07 04/10/19 25 04/11/2024 CBC WITH DIFFE RENTI AL/PL ATELE T MCHC 33.0 g/dL 31.5-3 5.7 normal Not Available [facility] ([facility]) [address] [facility], [place], [address], 04/11/2024 04:07:07 04/10/19 25 04/11/2024 CBC WITH DIFFE RENTI AL/PL ATELE T RDW 12.6 % 11.7-1 5.4 Not Available [facility] ([facility]) [address] [facility], [place], [address], 04/11/2024 04:07:07 04/10/19 25 04/11/2024 CBC WITH DIFFE RENTI AL/PL ATELE T platelets 225 x10e3 /uL 150-45 0 normal Not Available [facility] ([facility]) [address] [facility], [place], [address], 04/11/2024 04:07:07 04/10/19 25 04/11/2024 CBC WITH DIFFE RENTI AL/PL ATELE T neutrophils 46 % not estab. normal Not Available [facility] ([facility]) [address] [facility], [place], [address], 04/11/2024 04:07:07 04/10/19 25 04/11/2024 CBC WITH DIFFE RENTI AL/PL ATELE T lymphs 38 % not estab. normal Not Available [facility] ([facility]) [address] [facility], [place], [address], 04/11/2024 04:07:07 04/10/19 25 04/11/2024 CBC WITH DIFFE RENTI AL/PL ATELE T monocytes 10 % not estab. normal Not Available [facility] ([facility]) [address] [facility], [place], [address], 04/11/2024 04:07:07 04/10/19 25 04/11/2024 CBC WITH DIFFE RENTI AL/PL ATELE T eos 5 % not estab. normal Not Available [facility] ([facility]) [address] [facility], [place], [address], 04/11/2024 04:07:07 04/10/19 25 04/11/2024 CBC WITH DIFFE RENTI AL/PL ATELE T basos 1 % not estab. normal Not Available [facility] ([facility]) [address] [place], [address], 04/11/2024 04:07:07 04/10/19 25 04/11/2024 CBC WITH DIFFE RENTI AL/PL ATELE T immature cells PATIENT BILLER Not Available [facility] ([facility]) [address] [place], [address], 04/11/2024 04:07:07 04/10/1904/11/2024 CBC WITH DIFFE RENTI AL/PL ATELE T neutrophils (absolute) 1.3 x10e3 /uL 1.4-7. 0 below low normal Not Available [facility] ([facility]) [address] [place], [address], 04/11/2024 04:07:07 04/10/19 25 04/11/2024 CBC WITH DIFFE RENTI AL/PL ATELE T lymphs (absolute) 1.1 x10e3 /uL 0.7-3. 1 normal Not Available [facility] ([facility]) [address] [place], [address], 04/11/2024 04:07:07 04/10/19 25 04/11/2024 CBC WITH DIFFE RENTI AL/PL ATELE T monocytes(ab solute) 0.3 x10e3 /uL 0.1-0. 9 normal Not Available [facility] ([facility]) [address] [place], [address], 04/11/2024 04:07:07 04/10/19 25 04/11/2024 CBC WITH DIFFE RENTI AL/PL ATELE T eos (absolute) 0.2 x10e3 /uL 0.0-0. 4 normal Not Available [facility] ([facility]) [address] [facility], [place], [address], 04/11/2024 04:07:07 04/10/19 25 04/11/2024 CBC WITH DIFFE RENTI AL/PL ATELE T baso (absolute) 0.0 x10e3 /uL 0.0-0. 2 normal Not Available [facility] ([facility]) [address] [facility], [place], [address], 04/11/2024 04:07:07 04/10/19 25 04/11/2024 CBC WITH DIFFE RENTI AL/PL ATELE T immature granulocytes 0 % not estab. Not Available [facility] ([facility]) [address] [facility], [place], [address], 04/11/2024 04:07:07 04/10/19 25 04/11/2024 CBC WITH DIFFE RENTI AL/PL ATELE T immature grans (abs) 0.0 x10e3 /uL 0.0-0. 1 Not Available [facility] ([facility]) [address] [facility], [place], [address], 04/11/2024 04:07:07 04/10/19 25 04/11/2024 CBC WITH DIFFE RENTI AL/PL ATELE T NRBC PATIENT BILLER Not Available [facility] ([facility]) [address] [facility], [place], [address], 04/11/2024 04:07:07 04/10/19 25 04/11/2024 CBC WITH DIFFE RENTI AL/PL ATELE T hematology comments: PATIENT BILLER Not Available [facility] ([facility]) [address] [facility], [place], [address], 04/11/2024 04:07:07 02/13/20 24 02/13/2024 MAMMO , scree eliz, digit al, bilat eral No observ ation record ed. [email or web address] [facility] [address] [address], [place], [address], 03/02/2024 09:33:06 02/13/20 24 02/13/2024 MAMMO , scree eliz, digit al, bilat eral No observ ation record ed. [email or web address] [facility] [address], [place], [address], 03/02/2024 09:33:16 06/01/19 25 05/24/2024 imagi ng/di agnos tic resul t No observ ation record ed. [address], [place], [address], 05/31/2024 08:54:36 06/01/19 25 05/24/2024 imagi ng/di agnos tic resul t No observ ation record ed. [address], [place], [address], 05/31/2024 09:31:06 Result Notes None recorded. Problems Name Problem SNOMED Code Status Onset Date Resolution Date Notes Provider Name and Address Organization Details Recorded Time Lumbar spondylosis 431900380 Active Not Available [facility] includes the [facility] 3 09:16:31 Anemia 219816684 Active Not Available [facility] 3 09:16:31 Thoracic back pain 244571447 Active Not Available Count includes the [facility] 3 09:16:31 Low back pain 293741869 Active Not Available Count includes the [facility] 3 09:16:31 Abnormal heart beat 020863002 Active Not Available Count includes the [facility] 3 09:16:31 Burning pain 52106752 Active Not Available [facility] 3 09:16:31 Disorder of rotator cuff 288204514 Active Not Available Count includes the [facility] 3 09:16:31 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 Not Available Count includes the [facility] 3 09:16:31 Urgent desire to urinate 50646540 Active 2022 Aletha Camargo MD [address] [place], [place] [address], [facility] [address], [place], [address] , [facility] 3 13:54:23 Acute urinary tract infection 083902178 Active 2022 Aletha Camargo MD [address], [place], [address] , [facility] 3 16:33:59 Lipoma of skin 721682291 Active 2023 Aletha Camargo MD [address], [address], [place], [address] , [facility] 4 11:52:37 Hyperlipidem ia 19752465 Active 2023 Aletha Camargo MD [address], [address], [place], [address] , [facility] 4 11:53:31 Goiter 5041873 Active 2023 Aletha Camargo MD [address], [address], [place], [address] , [facility] 4 11:54:16 Iron deficiency anemia 60950165 Active 2023 Aletha Camargo MD [address], [place], [address] , [facility] 4 11:54:26 Vitamin D deficiency 67736891 Active 2023 Aletha Camargo MD [address], [address], [place], [address] , [facility] 4 11:54:40 Chest pain 07861901 Active 2023 Aston hair MD [address], [place], [address] , [facility] 4 15:00:34 Cough 04237695 Active 2023 Aletha Camargo MD [address], [place], [address] , [facility] 4 12:19:00 Otalgia of left ear 2721717061 Active 2023 Aletha Camargo MD [address] [facility], [address] [address], [place], [address] , [facility] [employer] [facility] [employer] [facility] 4 18:04:05 Burning mouth syndrome 880719340 Active 2024 ASHER PowellP- [address] [facility], [address] [address], [place], [address] , [facility] [employer] [facility] [employer] [facility] 5 22:59:47 Leukopenia 35864511 Active 2024 [facility] [address] [facility], [address] [address], [place], [address] , [employer] 5 09:18:12 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 Procedures Surgical History Date Name Laterality Status Provider Name and Address Organization Details Recorded Time 02/21/20 16 Colonoscopy completed Not Available [facility] the [facility] 04/25/19 09:12:43 Dilation and curettage completed Not Available [facility] includes the [facility] 04/24/2022 09:12:43 ligation of bilateral fallopian tubes completed Not Available [facility] includes the [facility] 04/24/2022 09:12:43 Ablation completed Not Available [facility] includes the [facility] 09:12:43 Imaging Results None recorded. Procedure Notes None recorded. Medical Equipment None [...] completed Not Available Not Available Not Available dexamethaso ne 0.5 mg/5 mL oral elixir TAKE 5 ML BY MOUTH TWICE DAILY FOR 7 DAYS active Not Available Not Available No t Available nystatin-tr iamcinolone 100,000 unit/g-0.1 % topical [...] ferrous sulfate 324 mg (65 mg iron) tablet,gavin yed release 1 po qday 11/23 completed Not Available Not Available Not Available Nexium 24HR 22.3 mg capsule,del ayed release 1 po qday 10/22 completed Not Available Not Available Not Available Yuvafem 10 mcg vaginal tablet INSTILL ONE TABLET VAGINALLY TWICE A WEEK 03/31 completed Not Available Not Available Not Available Vitals Date Recorded Body weight Body temperature Heart rate Oxygen saturation Oxygen saturation in Arterial blood by Pulse oximetry Systolic blood pressure Diastolic blood pressure Provider Name and Address Organization Details Last Updated DateTime 4 91922.2 2 g 98.6 [degF] 106 /min 99 % 99 % 144 mm[Hg] 80 mm[Hg] Yumiko Weldon RN [facility] [employer] [facility] 4 11:40:29 Date Recorded Body weight Body temperature Heart rate Oxygen saturation Oxygen saturation in Arterial blood by Pulse oximetry Body mass index (BMI) Body height Systolic blood pressure Diastolic blood pressure Provider Name and Address Organization Details Last Updated DateTime 4 08330.2 2 g 98.7 [degF] 86 /min 98 % 98 % 26.4 kg/m2 162.56 cm 140 mm[Hg] 80 mm[Hg] Eliana Martinez MA [facility] [employer] [facility] 4 10:40:04 Date Recorded Body weight Body temperature Heart rate Oxygen saturation Oxygen saturation in Arterial blood by Pulse oximetry Systolic blood pressure Diastolic blood pressure Provider Name and Address Organization Details Last Updated DateTime 5 16022.3 g 98.7 [degF] 92 /min 98 % 98 % 152 mm[Hg] 80 mm[Hg] Yumiko Weldon RN [facility] [employer] [facility] 5 14:05:26 Date Recorded Body weight Body mass index (BMI) Body height Body temperature Provider Name and Address Organization Details Last Updated DateTime 06/09/2024 38890.37 g 24.1 kg/m2 162.56 cm 97.6 [degF] Concha Melendez RN [facility] [employer] [facility] 06/09/2024 11:37:43 Social History Question Answer Notes LastModified by [employer] Details LastModified Time Tobacco Smoking Status Former Smoker quit 1999 Not Available [employer] 04/24/2022 09:12:37 What Was The Date Of Your Most Recent Tobacco Screening? 03/05/2023 [email or web address] Information not available 03/05/2023 Sex: Unknown Functional Status Question Answer Note LastModified by [employer] Details LastModified Time What is your occupation? [employer] [address] [id number] Information not available 04/24/2022 Mental Status None recorded. Family History Relationship Description Onset Age of this Age Resolved Age Notes LastModified by Organization Details LastModified Time Father Malignant neoplasm of lung was heavy smoker [id number] [id number] Not available 04/24/2022 09:12:44 Maternal Grandmother Malignant tumor of breast [id number].222 [id number] Not available 04/24/2022 09:12:44 Sister Malignant tumor of breast MIGRATION.081 [id number] Not available 04/24/2022 09:12:44 Notes:NO ENT Medical History Condition Response NO SIGNIFICANT PAST MEDICAL HISTORY Y Gynecological HistoryNo gynecological history recorded. Obstetrics History GPAL:G 0 P 0 0 0 0 Immunizations Vaccine Type Date Status Note Provider Nam e and Address Organization Details Recorded Time Influenza, split virus, quadrivalent, PF 03/05/2023 completed Aletha Camargo MD [address] [place] [address], [id number], [facility] [employer] 03/26/2023 08:55:59 Tdap 03/27/2012 completed Not Available [facility] 04/24/2022 09:21:01 Influenza, split virus, quadrivalent, PF 12/19/2020 completed Not Available [facility] 3 09:21:01 Influenza, split virus, quadrivalent, PF 11/29/2019 completed Not Available [facility] 3 09:21:01 Influenza, split virus, quadrivalent, PF 11/23/2018 completed Not Available [facility] 3 09:21:01 Influenza, split virus, quadrivalent, PF 02/06/2022 completed Not Available [facility] 3 09:21:01 Influenza, split virus, quadrivalent, PF 12/12/2016 completed Not Available [facility] 3 09:21:01 Past Encounters Encounter ID Performer Location Encounter Start Date Encounter Closed Date Diagnosis/Indication Diagnosis SNOMED-CT Code Diagnosis ICD10 Code Diagnosis Note [id number] Aletha Camargo MD [facility] [address] [facility] [address] [place] [address] 12/19/2020 00:00:00 12/19/2020 16:43:23 [id number] Aletha Camargo MD [facility] [address] [facility] [address] [place] [address] 02/06/2022 00:00:00 02/22/2022 08:58:15 [id number] Aletha Camargo MD [facility] Primary Care [facility] [address] [facility] [address] [place] [address] 02/10/2023 14:05:53 04/14/2023 09:04:39 [id number] Aletha Camargo MD [facility] Primary Care [facility] [address] [facility] [address] [place] [address] 03/05/2023 11:25:57 03/05/2023 12:02:21 Adult health examination 260260441 Z00.00 Check fasting labs Pap is up to date with gynecology Mammogram repeat due 06/16-manager coding ordered colonoscop y done 01/2016 normal repeat 2025 flu vaccine today, recommend covid booster DEXA ordered Shingrix vaccine series recommende dHas been nonsmoker for 20+ years Postmenopausal state 764 86129 Z78.0 Lipoma of skin 710197789 D17.30 Hyperlipidemia 03190792 E78.5 Z79.899 Goiter 7701961 E04.9 Iron defic iency anemia 88171731 D50.9 Vitamin D deficiency 347 91293 E55.9 Administra tion of influenza vaccine 67201400 Z23 [id number] Aston hair MD [facility] General Surgery [address] [facility], [address] [place] [address] 03/20/2023 09:55:42 03/20/2023 17:11:58 Chest pain 78070402 R07.9 [id number] ASHER PowellP-Shani [facility] Primary Care [facility] [address] [facility] [address] [place] [address] 03/31/2024 13:56:36 03/31/2024 14:23:53 Adult health examination 527607657 Z00.00 Discussed medication compliance and routine follow up.Discuss ed healthy diet and routine exercise.Jackie callawayiewed vaccine records and made recommenda tions as needed.Enc ouraged annual eye and dental exams, as well as twice yearly dental cleanings. Will check screening labs as listed below. Anemia 142404323 D64.9 Will check labs as listed below. Goiter 5993138 E04.9 Will check labs as listed below. Hyperlipidemia 41749233 E78.5 Z79.899 Will check labs a listed below. Vitamin D deficiency 347 62195 E55.9 Will check labs as listed below. Hepatitis C screening 41 2514041 Z11.59 Will check labs as listed below. 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 Health Concerns Section Related Observation LastModified by Organization Detai ls LastModified Time None Recorded Concern Status LastModified by Organization Details LastModified Time None Recorded Advance Directives Directive None Recorded Payers Encounter Date Sequence Insurance Name Policy Number Policy Beatty Covered Member ID Beatty Member ID Guarantor Name 02/10/2023 1 [facility] [id number] Christopher L Sagrario [id number] Argeila Sagrario 03/05/2023 1 [facility] [id number] Christopher L Sagrario [id number] Argelia Sagrario 03/20/2023 1 [facility] [id number] Christopher L Sagrario [id number] Argelia Sagrario 03/31/2024 1 [facility] [id number] Christopher L Sagrario [id number] Argelia Sagrario 06/09/2024 1 [facility] [id number] Christsalinaer L Sagrario [id number] Argelia Sagrario Notes Date Note Type Note Provider Name and Address Organization Details Recorded Time 03/05/2023 text/html 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 Has had for approximately a year. exacerbated by coughing, and sneezing. Denies any abnormal lumps. Had chest x-ray approximately 1 year ago with no abnormality. Denies fevers or chills. Aston Whitman MD [address] [address], [place], [address], [facility] [employer] [facility] 03/20/2023 15:00:41 03/31/2024 text/html Patient is a 58 year old female that presents to the office for annual wellness. Patient reports she is doing well overall, does not take any daily medications. Patient reports left ear discomfort for several weeks. Patient denies pain-describes it as a quick twinge. Patient denies hearing loss. Patient denies drainage. [...] UTD (01/2016)Flu- declinesCovid- declinesTdap- awareShingles- awarePneumo- aware YE Powell [address] [address], [place], [address], [facility] [employer] [facility] 03/31/2024 23:00:26 06/09/2024 text/html This patient has a past medical history significant for vitamin-D deficiency, HLD, squamous cell carcinoma, iron deficiency anemia, and goiter who presents to the office from a referral from her PCP for glossodynia. She states that her burning mouth symptoms had begun in January of 2024 that are constant. She notes that she was treated for a squamous cell carcinoma to her left anterior neck and was treated with 25 rounds of radiation. She states that her last radiation treatment was in August of 2023. She does report chewing gum and eating and drinking beverages alleviates her symptoms. She does report consuming spicy foods aggravates her symptoms. She has followed up with a dentist on 2 separate occasions in which she has had negative findings. She also reports an occasional, intermittent sensation to her left ear that happens on a daily basis. She denies any hearing changes. This is likely due to her multiple rounds of radiation. Concha Irving, [employer] [address] [facility], [facility] [address], [place], [address], [facility] [employer] [facility] 06/09/2024 12:04:30 OBGyn Episode No OBEpisode recorded.
--- OUTSIDE RECORDS SUMMARY | 2024-08-02 15:18 | XMS_ITS | Data Portability ---
Author Organization [employer] [facility] Address [address] [place] [address] Assessment No assessment recorded. Plan of Treatment Reminders Order Date Submit Date Provider Last Modified By Organization Details Last Modified Time Details Appointments None recorded. Lab ferritin, serum or plasma 2015 016 leana [facility], [address], [address], [place], [address], 14:38:32 iron + total iron-bindin g capacity (TIBC), serum 2015 016 leana [facility], [address], [address], [place], [address], 14:38:33 CBC 2015 016 leana [facility], [address] [facility], [address], [place], [address], 14:38:33 urinalysis, dipstick 2015 Raquel dueñas In-Office Order, Internal Use Only DO Not Attach Compendium DO Not Attach Compendium, Do Not Delete/merge, [id number] 15:13:30 lipid panel, serum 2015 016 FOSTER [facility], [address], [address], [place], [address], 6 06:43:48 CMP, serum or plasma 2015 016 FOSTER [facility], [address], [place], [address], 6 06:43:48 CBC 2015 016 leana [facility], [address], [address], [place], [address], 6 13:52:24 Referral gastroenter ologist referral - WAS PATIENT SEEN? 2015 016 [email or web address] Silverio Curtis MD, [address] [facility] [address], [address], [place], [address], 7 14:18:54 colonoscopy referral 2015 016 [email or web address] Not available 15:02:51 gastroenter ologist referral - PROCEDURE Please call patient to schedule and send consult report. Thanks!! 2015 016 [email or web address] Juan Tate MD, [address], [address], [place], [address], 6 12:35:32 Procedures None recorded. Surgeries None recorded. Imaging MAMMO, screening, bilateral 2015 016 [facility], [address], [address], [place], [address], 6 19:24:57 CT, abdomen, w/o contrast 2015 016 [facility], [address], [address], [place], [address], 6 04:29:07 Medication Orders None recorded. Patient TargetsNo targets recorded. Patient Instructions Encounter Date Encounter Id Patient Instructions Last Modified By Organization Details Last Modified Time 11/09/2015 [id number] Advised 30 minutes of exercise 5 days/week Advised to not drink her calories eewig Not available 11/09/2015 15:00:11 Will sign BENJA fo r last 2 office notes and recent labs and imaging from [facility] in [place] Will sign for pap smears and mammograms from Brenda Whitaker Patient declined flu vaccine RTC for WWE and then will do annual visits for everything eewig Not available 11/09/2015 15:13:31 12/15/2015 [id number] Return to clinic PRN eewig Not available 12/15/2015 11:17:25 Reason for Referral PROCEDURE Please call nivia yeung to schedule and send consult report. Thanks!! Referring Physician: Martha Clayton [facility], Encounter Date: 11/09/2015 Colonoscopy Referral for Pre ventive procedure Referring Physician: Martha Clayton [facility], Encounter Date: 12/15/2015 WAS PATIENT SEEN? Referring Physician: Martha Clayton [facility], Encounter Date: 12/15/2015 Results Created Date Observation Date Name Description Value Unit Range Abnormal Flag Note LastModifiedBy Organization Detail LastModifiedTime 11/09/19 16 11/09/2015 urina lysis , dipst ick Leukocytes Negati ve Not Available In-Office Order Internal Use Only DO Not Attach Compendium DO Not Attach Compendium, Do Not Delete/merge, [id number] 11/09/2015 14:35:34 11/09/19 16 11/09/2015 urina lysis , dipst ick Nitrite negati ve Not Available In-Office Order Internal Use Only DO Not Attach Compendium DO Not Attach Compendium, Do Not Delete/merge, [id number] 11/09/2015 14:35:34 11/09/19 16 11/09/2015 urina lysis , dipst ick Urobilinogen .2 Not Available In-Of fice Order Internal Use Only DO Not Attach Compendium DO Not Attach Compendium, Do Not Delete/merge, [id number] 11/09/2015 14:35:34 11/09/19 16 11/09/2015 urina lysis , dipst ick Protein Negati ve Not Available In-Office Order Internal Use Only DO Not Attach Compendium DO Not Attach Compendium, Do Not Delete/merge, [id number] 11/09/2015 14:35:34 11/09/19 16 11/09/2015 urina lysis [...] 11/09/2015 urina lysis , dipst ick Specific [employer] 1.030 Not Available In-Off ice Order Internal [...] 204 mg/dL 125-20 0 high Not Available [address], [address], 11/10/2015 06:43:48 11/09/1911/10/2015 lipid panel , serum HDL cholesterol 54 mg/dL > or = 46 normal Not Available [address], [address], 11/10/2015 06:43:48 11/09/1911/10/2015 lipid panel , serum triglyceride s 76 mg/dL <150 normal Not Available [address], [address], 11/10/2015 06:43:48 11/09/1911/10/2015 lipid panel , serum LDL-choleste rol 135 mg/dL _(megan c) <130 high Chris able range <100 mg/dL for patie nts with CHD or diabe twyla and <70 mg/dL for diabe tic patie nts with known heart disea se. Not Available [address], [address], 11/10/2015 06:43:48 11/09/1911/10/2015 lipid panel , serum chol/HDLC ratio 3.8 (calc ) < or = 5.0 normal Not Available [address], [address], 11/10/2015 06:43:48 11/09/1911/10/2015 lipid panel , serum non HDL cholesterol 150 mg/dL _(megan c) normal Targe t for non-H DL earnest stero l is 30 mg/dL highe r than LDL earnest stero l targe t. Not Available [address], [address], 11/10/2015 06:43:48 11/09/1909 1111/10/2015 CMP, serum or plasm a glucose 98 mg/dL 65-99 normal Fasti ng refer ence inter isidro Not Available [address], [address], 11/10/2015 06:43:48 11/09/19 16 11/10/2015 CMP, serum or plasm a urea nitrogen (BUN) 18 mg/dL 7-25 normal Not Available [address], [address], 11/10/2015 06:43:48 11/09/1911/10/2015 CMP, serum or plasm a creatinine 0.71 mg/dL 0.50-1 .05 normal For patie nts >49 years of age, the refer ence limit for Creat inine is appro ximat jerrell 13% highe r for peopl e ident ified as Afric an-Am magaly n. Not Available [address], [address], 11/10/2015 06:43:48 11/09/1911/10/2015 CMP, serum or plasm a eGFR non-afr. brazilian 99 mL/mi n/1.7 3m2 > or = 60 normal Not Available [address], [address], 11/10/2015 06:43:48 11/09/1911/10/2015 CMP, serum or plasm a eGFR 115 mL/mi n/1.7 3m2 > or = 60 normal Not Available [facility] [address], [address], 11/10/2015 06:43:48 11/09/1911/10/2015 CMP, serum or plasm a BUN/creatini ne ratio NOT APPLIC ABLE (calc ) 6-22 Not Available [address], [address], 11/10/2015 06:43:48 11/09/1911/10/2015 CMP, serum or plasm a sodium 138 mmol/ L 135-14 6 normal Not Available [address], [address], 11/10/2015 06:43:48 11/09/1911/10/2015 CMP, serum or plasm a potassium 4.2 mmol/ L 3.5-5. 3 normal Not Available [address], [address], 11/10/2015 06:43:48 11/09/1911/10/2015 CMP, serum or plasm a chloride 103 mmol/ L 98-110 normal Not Available [address], [address], 11/10/2015 06:43:48 11/09/1911/10/2015 CMP, serum or plasm a carbon dioxide 26 mmol/ L 20-31 normal Not Available [address], [address], 11/10/2015 06:43:48 11/09/1911/10/2015 CMP, serum or plasm a calcium 9.5 mg/dL 8.6-10 .4 normal Not Available [address], [address], 11/10/2015 06:43:48 11/09/1911/10/2015 CMP, serum or plasm a protein, total 7.9 g/dL 6.1-8. 1 normal Not Available [address], [address], 11/10/2015 06:43:48 11/09/1911/10/2015 CMP, serum or plasm a albumin 4.6 g/dL 3.6-5. 1 normal Not Available [facility] [address], [address], 11/10/2015 06:43:48 11/09/1911/10/2015 CMP, serum or plasm a globulin 3.3 g/dL_ (calc ) 1.9-3. 7 normal Not Available [address], [address], 11/10/2015 06:43:48 11/09/19 16 11/10/2015 CMP, serum or plasm a albumin/glob ulin ratio 1.4 (calc ) 1.0-2. 5 normal Not Available [facility] [address], [address], 11/10/2015 06:43:48 11/09/1911/10/2015 CMP, serum or plasm a bilirubin, total 0.5 mg/dL 0.2-1. 2 normal Not Available [address], [address], 11/10/2015 06:43:48 11/09/1911/10/2015 CMP, serum or plasm a alkaline phosphatase 41 U/L 33-130 normal Not Available [facility] [address], [address], 11/10/2015 06:43:48 11/09/1911/10/2015 CMP, serum or plasm a AST 15 U/L 10-35 normal Not Available [facility] [address], [address], 11/10/2015 06:43:48 11/09/1911/10/2015 CMP, serum or plasm a ALT 12 U/L 6-29 normal Not Available [facility] [address], [address], 11/10/2015 06:43:48 11/09/19 16 11/10/2015 CBC w/ auto diff white blood cell count 4.8 thous and/u L 3.8-10 .8 normal Not Available [facility] [address], [address], 11/10/2015 06:43:49 11/09/1911/10/2015 CBC w/ auto diff red blood cell count 4.05 angus on/uL 3.80-5 .10 normal Not Available [address], [address], 11/10/2015 06:43:49 11/09/1911/10/2015 CBC w/ auto diff hemoglobin 10.8 g/dL 11.7-1 5.5 low Not Available [address], [address], 11/10/2015 06:43:49 11/09/1911/10/2015 CBC w/ auto diff hematocrit 33.1 % 35.0-4 5.0 low Not Available [address], [address], 11/10/2015 06:43:49 11/09/1911/10/2015 CBC w/ auto diff MCV 81.9 fL 80.0-1 00.0 normal Not Available [address], [address], 11/10/2015 06:43:49 11/09/1911/10/2015 CBC w/ auto diff MCH 26.7 pg 27.0-3 3.0 low Not Available [address], [address], 11/10/2015 06:43:49 11/09/1911/10/2015 CBC w/ auto diff MCHC 32.6 g/dL 32.0-3 6.0 normal Not Available [address], [address], 11/10/2015 06:43:49 11/09/1911/10/2015 CBC w/ auto diff RDW 15.4 % 11.0-1 5.0 high Not Available [address], [address], 11/10/2015 06:43:49 11/09/1911/10/2015 CBC w/ auto diff platelet count 248 thous and/u L 140-40 0 normal Not Available [address], [address], 11/10/2015 06:43:49 11/09/1911/10/2015 CBC w/ auto diff MPV 9.7 fL 7.5-11 .5 normal Not Available [address], [address], 11/10/2015 06:43:49 11/09/1911/10/2015 CBC w/ auto diff absolute neutrophils 2995 cells /uL 1500-7 800 normal Not Available [address], [address], 11/10/2015 06:43:49 11/09/1911/10/2015 CBC w/ auto diff absolute lymphocytes 1195 cells /uL 850-39 00 normal Not Available [address], [address], 11/10/2015 06:43:49 11/09/1911/10/2015 CBC w/ auto diff absolute monocytes 490 cells /uL 200-95 0 normal Not Available [address], [address], 11/10/2015 06:43:49 11/09/1911/10/2015 CBC w/ auto diff absolute eosinophils 91 cells /uL 15-500 normal Not Available [address], [address], 11/10/2015 06:43:49 11/09/1911/10/2015 CBC w/ auto diff absolute basophils 29 cells /uL 0-200 normal Not Available [address], [address], 11/10/2015 06:43:49 11/09/1911/10/2015 CBC w/ auto diff neutrophils 62.4 % normal Not Available [address], [address], 11/10/2015 06:43:49 11/09/1911/10/2015 CBC w/ auto diff lymphocytes 24.9 % normal Not Available [address], [address], 11/10/2015 06:43:49 11/09/1911/10/2015 CBC w/ auto diff monocytes 10.2 % normal Not Available [address], [address], 11/10/2015 06:43:49 11/09/1911/10/2015 CBC w/ auto diff eosinophils 1.9 % normal Not Available [address], [address], 11/10/2015 06:43:49 11/09/1911/10/2015 CBC w/ auto diff basophils 0.6 % normal Not Available [address], [address], 11/10/2015 06:43:49 11/22/1911/23/2015 iron + total iron- claudia ng capac ity (TIBC ), serum iron, total 33 mcg/d L 45-160 low Not Available [address], [address], 11/23/2015 06:21:38 11/22/1911/23/2015 iron + total iron- claudia ng capac ity (TIBC ), serum iron binding capacity 421 mcg/d L_(ca lc) 250-45 0 normal Not Available [address], [address], 11/23/2015 06:21:38 11/22/1911/23/2015 iron + total iron- claudia ng capac ity (TIBC ), serum % saturation 8 %_(ca lc) 11-50 low Not Available [facility] [address] [place], [address], 11/23/2015 06:21:38 11/22/19 16 11/23/2015 noman tin, serum or plasm a ferritin 5 NG/mL 10-232 low Not Available [facility] [address] [place], [address], 11/23/2015 06:21:39 12/05/19 16 12/04/2015 CT, abdom en, w/o contr ast No observ ation record ed. [address] [facility] [address], [place], [address], 12/05/2015 11:57:41 12/18/19 16 12/16/2015 MAMMO , scree eliz, bilat eral No observ ation record ed. [address] [facility] [address], [place], [address], 12/19/2015 15:55:13 Result Notes None recorded. Problems Name Problem SNOMED Code Status Onset Date Resolution Date Notes Provider Name and Address Organization Details Recorded Time Excessive cerumen in ear canal 937350124 Active Martha Clayton PA-C Attn: Accounting ,[address] [place], [address] , [facility] 6 14:20:19 Hyperlipi demia 84728257 Active Martha Clayton PA-C Attn: Accounting ,[address] [place], [address] , [facility] 6 14:20:19 Full blood count outside reference range 851898995 Active Martha Clayton PA-C Attn: Accounting ,[address] [place], [address] , [facility] 6 14:20:19 Anemia 994058770 Active per historical notes from last provider Martha Clayton PA-C Attn: Accounting ,[address] [facility], [place], [address] , [facility] 6 16:28:40 Lumbar spondylos is 079743954 Active per historical notes from last provider - xrays in historical record Martha Clayton PA-C Attn: Accounting ,[address] [facility], [place], [address] , [facility] 6 14:20:19 Swollen abdomen 55621511 Active Martha Clayton PA-C Attn: Accounting ,[address] [facility], [place], [address] , [facility] 6 16:28:40 Abdominal distensio n Active Mary Arevalo LPN null, [facility] 6 07:52:21 Problem Notes None recorded. Procedures Surgical History Date Name Laterality Status Provider Name and Address Organization Details Recorded Time 6 Cerumen Removal completed Martha Clayton PA-C Attn: Accounting, [facility], [place], [address], [facility] 11/09/2015 15:13:32 0 Tubal Ligation completed Janee Smith MA [facility] 11/09/2015 14:35:34 9 Dilation and Curettage completed Janee Smith MA [facility] 11/09/2015 14:35:34 Imaging Results None recorded. Procedure Notes None [...] Details Last Updated DateTime 6 18 /min 24604.3 10212 g 80 /min 25.3 kg/m2 98.5 [degF] 160.02 cm 120 mm[Hg] 80 mm[Hg] Janee Smith MA [facility] 6 14:35:33 Date Recorded Body height Heart rate Oxygen saturation Oxygen saturation in Arterial blood by Pulse oximetry Body temperature Systolic blood pressure Diastolic blood pressure Provider Name and Address Organization Details Last Updated DateTime 6 160.02 cm 115 /min 99 % 99 % 98 [degF] 134 mm[Hg] 80 mm[Hg] Lillian Frias MA [facility] 6 16:03:42 Date Recorded Body height Body weight Body mass index (BMI) Heart rate Respiratory rate Body temperature Systolic blood pressure Diastolic blood pressure Provider Name and Address Organization Details Last Updated DateTime 6 160.02 cm 76272.9 1 g 20.7 kg/m2 84 /min 18 /min 98.5 [degF] 112 mm[Hg] 76 mm[Hg] Janee Smith MA [facility] 6 10:40:20 Social History Question Answer Notes LastModified by Organizat ion Details LastModified Time Tobacco Smoking Status Former Smoker quit in 1999 Martha Clayton PA-C Attn: [place], [address], [facility] 11/09/2015 14:51:55 Are You Blind Or Do You Have Difficulty Seeing? Yes Information not available 11/09/2015 What Is Your Level Of Caffeine Consumption? Moderate Information not available 11/09/2015 How Much Tobacco Do You Chew? None Information not available 11/09/2015 Are You Deaf Or Do You Have Serious Difficulty Hearing? No Information not available 11/09/2015 What Type Of Diet Are You Following? REGULAR Information not available 11/09/2015 Which Illicit Or Recreational Drugs Have You Used? None Information not available 11/09/2015 Education 12 Information no t available 11/09/2015 Are There Any Guns Present [...] Sunscreen Routinely? Yes Information not available 11/09/2015 Do You Have Difficulty Walking Or Climbing Stairs? No Information not available 11/09/2015 Sex: Unknown Functional Status Question Answer Note LastModified by Organizat ion Details LastModified Time What is your level of alcohol consumption? None Information not available 11/09/2015 Are you currently employed? Yes Information not available 11/09/2015 Do you have difficulty doing errands alone? No Information not available 11/09/2015 Are you able to care for yourself? 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 Information not available 11/09/2015 Do you have difficulty dressing [...] eewig Not available 2015 14:16:32 Father Malignant neoplasm of lung 82 smoker eewig Not available 2015 14:16:32 Medical History Condition Response Coronary Artery Disease N Other N Atrial Fibrillation N High Blood Pressure N Depression N COPD N Blood Clots N Anxiety Disorder N Muscle, Joint, or Bone Problems Y Acid Reflux (GERD) N Cancer N Stroke N High Cholesterol N Liver Disease N Headaches N Kidney or Bladder Problems N Thyroid Problems N GI Problems N Skin Problems N Anemia N Heart Attack (PA) N Diabetes N Seizures/Epilepsy N Asthma N Allergies N Hepatitis N Heart Failure N Osteoporosis N Gynecological History Statement/Question Response Menses Monthly Y Age at First Child 20 LMP Obstetrics History GPAL:G 0 P 0 0 0 0 Past Encounters Encounter ID Performer Location Encounter Start Date Encounter Closed Date Diagnosis/Indication Diagnosis SNOMED-CT Code Diagnosis ICD10 Code Diagnosis Note [id number] Milly [place] MD [facility] (Adult [facility]) [address] [place] [address] 11/09/2015 13:42:20 11/09/2015 15:12:47 Adult health examination 094987215 Z00.00 50YO female here to establish care. Her insurance changed d/t her losing his job and her old PCP does not accept her new insurance. Screening for malignant neoplasm of colon 089740093 Z12.11 Excessive cerumen in ear canal 881594754 H61.21 As seen on exam - Removed - patient states that she can hear better with cerumen removed [id number] Milly [place] MD [facility] (Adult Med) [address] [place] [address] 11/29/2015 15:53:33 11/29/2015 18:12:11 Screening for malignant neoplasm of breast 089394194 Z12.31 Will send to [facility] - she has had imaging performed there for mammograms in the past Patient declined breast exam Anemia 946668984 D64.9 Will initiate iron tabs BIDPatient to complete labs in 3 monthsAdvi sed to purchase Miralax OTC if she develops constipati on Swollen abdomen 98629968 R14.0 Patient c/o swelling of her abdomen during the day x 2 months and she is very concernedS he has a referral to Terri also begin with abdominal CT to further evaluate [id number] Milly [place] MD [facility] ([facility]ult [facility]) [address] [place] [address] 12/15/2015 10:31:42 12/15/2015 12:18:06 Preventive procedure 015108470 Z29.9 Screening for malignant neoplasm of colon 081406375 Z12.11 Swollen abdomen 75224543 R14.0 Patient given referral number for GI [...] Beatty Member ID Guarantor Name 11/09/2015 1 [facility] [id number] [place] [id number] [place] 11/29/2015 1 [facility] [id number] [place] [id number] [place] 12/15/2015 1 [facility] [id number] [place] Sag[place] [id number] [place] Notes Date Note Type Note Provider Name and Address Organization Details Recorded Time 11/09/2015 text/html Here to carissa krystin. She states that she had a pap smear and mammogram in 10/2014 and that they were WNL. Martha Clayton PA-C Attn: Accounting,[address] [place], [address], [place] [facility] 11/09/2015 15:15:11 11/29/2015 text/html Abdominal PainReported bypatient.Location :epigastric Quality:bloating(f eeling full) Severity:no pain (discomfort) Onset/Timing:ab lizama (2 months); wax/wane Modifying Factors:she takes Tylenol [...] breast cancer Martha Clayton PA-C Attn: Accounting,[address] [place], [address], [facility] 11/29/2015 17:24:41 12/15/2015 text/html Here for abdomin al CT results. Patient states that she still feels the bloating and discomfort but is slightly better. Per patient, she will have [employer]BS come February 07. [place] stated that they would play for a colonoscopy as long as it was preventative. Martha Clayton PA-C Attn: Accounting,[address] [facility], [place], [address], [facility] 12/15/2015 11:17:47 OBGyn Episode No OBEpisode recorded.
--- OUTSIDE RECORDS SUMMARY | 2024-08-02 15:18 | XMS_ITS | Encounter Summary ---
Author Organization [facility] DARVIN Clarke [facility] Address [address] [place] [address] Care Team Providers Care Sports Announcer Name Role Phone Unavailable Primary Care Provider Unavailabl e Reason for Referral * Radiology Services (Routine) - Closed Specialty Diagnoses / Procedures Referred By Kiel yeung Referred To Contact Diagnoses Neutropenia, unspecified type Procedures US ABDOMEN COMPLETE Cruz Sampson MD [address] [place] [address] Phone: tel: fax: [place] [phone] Referral ID Status Reason Start Date Expiration Date V isits Requested Visits Authorized [id number] Closed [facility] CTS 08/02/2024 09/02/2025 1 1 Reason for Visit * Reason Comments Establish Care Encounter Details Date Type Department Care Team (Late st Contact Info) Description 08/02/2024 1:30 PM CDT Office Visit [facility] Oncology and Hematology [facility] [address] [place] [address] [facility] [address] [place] [address] Cruz Sampson MD [address] [place] [address] Chronic anemia (Primary Dx); Neutropenia, unspecified type Social History Tobacco Use Types Packs/Day Years [...] on file Sexual Orientation Not on file documented as of this encounter Last Filed Vital Signs Vital Sign Reading [...] Mass Index 25.03 08/02/2024 1:20 PM CDT documented in this encounter Progress Notes * Cruz Sampson MD - 08/02/2024 1:39 PM CDT Hematology-oncology consult Note Requesting Physician YE Powell Primary Care Physician No primary care provider on file. Problem list There is no problem list on file for this patient. Previous TREATMENT ? Measurable Disease ? Reason for Visit Argelia Zabala is a 58 y.o. female who was referred for consultation for leukopenia. 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 She had labs done in March 2024 that showed WBC count of 2900. She denies being sick at that time. She has no previous history of liver disease. There is no history of alcohol abuse. She drinks alcohol only occasionally. Denies any autoimmune symptoms including arthritisand rash. He is not taking any medicine. Denies any other complaints. Past Medical History Past Medical History: Diagnosis Date Malignant neoplasm (CMS/HCC) Surgical History Past Surgical History: Procedure Laterality Date HX TUBAL LIGATION CA COLONOSCOPY FLX DX W/COLLJ SPEC WHEN PFRMD N/A 02/21/2016 COLONOSCOPY performed by Cristopher Waldron MD at [facility] Medications No current outpatient medications on file. No current facility-administered medications for this visit. Allergies No Known Allergies Immunizations: There is no immunization history on file for this patient. Family History Family History Problem Relation Name Age of Onset Lung Cancer Father Heart Disease Mother No Known Problems Brother No Known Problems Brother No Known Problems Sister No Known Problems Sister Breast Cancer Sister No Known Problems Sister No Known Problems Sister No Known Problems Sister No Known Problems Sister No Known Problems Child No Known Problems Child No Known Problems Child No Known Problems Child Colon Cancer Neg Hx Social History Social History Tobacco Use Smoking status: Former Current packs/day: 0.00 Average packs/day: 1 pack/day for 10.0 years (10.0 ttl pk-yrs) Types: Cigarettes Start date: 08/02/1989 Quit date: 08/03/1999 Years since quittin.0 Smokeless tobacco: Not on file Substance Use Topics Alcohol use: Yes Comment: Socially Review of Systems Constitutional: Patient did not mention fever; no night sweats; no anorexia; no weight loss; no fatique NEENT: Patient did not mention headache; no change in vision; no change in hearing; no sore throat;no dysphagia Respiratory: Patient did not mention shortness of breath; no pleuritic chest pain; no cough; no hemoptysis Cardiac: Patient did not mention cardiac-like chest pain; no palpitations; no orthopnea; no PND; noDOE Breasts: Patient did not mention tenderness; no masses GI: Patient did not mention abdominal pain; no nausea; no vomiting; no diarrhea; no hematochezia; no melena : Patient did not mention dysuria; no frequency; no hesitancy; no hematuria RUBBER BELT SPLICER: Musculosketetal: Patient did not mention bone pain; no arthralgia; no joint swelling; no myalgia; Skin: Patient did not mention pruritis; no rash; no petechiae; no ecchymoses Endocrine: Patient did not mention polydipsia; no polyuria; no unusual weight gain Neuro: Patient did not mention headache; no change in vision; no sensory changes; no muscle weakness; no confusion; no seizures Psych: Patient did not mention anxiety; no depression; Physical Exam Vitals: As per nursing note Constitutional: Well developed, well nourished, no acute distress, non-toxic appearance Teeth and gum. No signs of infection or swelling. Eyes: PERRL, conjunctiva normal HEENT: Atraumatic, external ears normal, nose normal, oropharynx moist, no pharyngeal exudates. no sinus tenderness Neck- normal range of motion, no tenderness, supple Respiratory: No respiratory distress, normal breath sounds, no rales, no wheezing lymphocyte 38% Cardiovascular: Normal rate, normal rhythm, no murmurs, no gallops, no rubs GI: Soft, nondistended, normal bowel sounds, nontender, no splenomegaly, no hepatomegaly, no mass, no rebound, no guarding : No costovertebral angle tenderness Musculoskeletal: No edema, no tenderness, no deformities. Back- no tenderness Integument: Well hydrated, no rash, Digits and nails inspection normal Lymphatic: No lymphadenopathy noted Neurologic: Alert & oriented x 3, CN 2-12 normal, normal motor function, normal sensory function, no focal deficits noted Psychiatric: Speech and behavior appropriate ? labs No results found for this or any previous visit (from the past 24 hours). Labs from April 10, 2024 showed WBC 2.9 hemoglobin 13.2 MCV 97 platelet 225,000 neutrophil 48% Pathology ? Imaging & Other Studies Performance Status? Assessment / Plan: ? Leukopenia. Patient is a pleasant 58-year-old female who has been in good health except history of squamous cell carcinoma of the skin of the left side of the neck status post radiation therapy treatment x 25 completed in June 2023. She had labs done in March 2024 that showed low WBC count of 2.9. She denies being sick at that time. She denies any history of liver and spleen disease. I have discussed the differential diagnosis of leukopenia with the patient that includes autoimmune leukopenia, drug-induced leukopenia, nutritional deficiencies, liver and spleen disorders, benign essential leukopenia and possibility of bone marrow disorders. I will order the workup that will include CBC with differential, CMP, iron profile, vitamin B12 level, NUPUR journaled abdominal ultrasound. I do not see need for bone marrow biopsy testing at this time. Follow-up with me in 2 weeks. Have answered all the questions to patient satisfaction. Squamous cell carcinoma with skin status post radiation therapy treatment to the left side of the neck completed in June 2024. 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 Thank you very much for allowing me to participate in Argelia Zabala's evaluation and management. Please feel free to contact if I can be of any further assistance in your patient???s care requiring hematology or oncology evaluation. Sincerely, ? ? Cruz Sampson M.D. cell TOBACCO COUNSELING She is not a tobacco/nicotine user. Cruz Sampson MD ,08/02/2024 2:01 PM ? Total time spent 60 minutes, two third of the total time spent counseling patient [id number]. CC:?YE Powell documented in this encounter Plan of Treatment Upcoming Encounters Date Type Department Care Team (Late st Contact Info) Description 08/25/2024 4:30 PM CDT Telephone Check Up [facility] Oncology and Hematology [facility] [address] [facility] [address] [place] [address] Cruz Sampson MD [address] [facility] [address] [place] [address] Scheduled Orders Name Type Priority Associated Diagnoses Orde r Schedule CBC WITH DIFFERENTIAL Lab Stat Chronic anemia Expected: 08/02/2024, Expires: 08/02/2025 COMPREHENSIVE METABOLIC PANEL Lab Stat Chronic anemia Expected: 08/02/2024, Expires: 08/02/2025 FERRITIN Lab Routine Chronic anemia Expected: 08/02/2024, Expires: 08/02/2025 IRON, TIBC, AND PERCENT SATURATION Lab Routine Chronic anemia Expected: 08/02/2024, Expires: 08/02/2025 METHYLMALONIC ACID Lab Routine Chronic anemia Expected: 08/02/2024, Expires: 08/02/2025 TRANSFERRIN RECEPTOR TFR SOLUBLE Lab Routine Chronic anemia Expected: 08/02/2024, Expires: 08/02/2025 NUPUR SCREEN W/REFLEX Lab Routine Neutropenia, unspecified type Expected: 08/02/2024, Expires: 08/02/2025 VITAMIN B12 AND FOLATE Lab Routine Chronic anemia Expected: 08/02/2024, Expires: 08/02/2025 US ABDOMEN COMPLETE Imaging Routine Neutropenia, unspecified type 1 Occurrences starting 08/02/2024 until 08/02/2025 FLOW CYTOMETRY PANEL Lab Routine Neutropenia, unspecified type Expected: 08/02/2024, Expires: 08/02/2025 documented as of this encounter Visit Diagnoses Diagnosis Chronic anemia- Primary Anemia, unspecified Neutropenia, unspecified type documented in this encounter
[2024-08-02 16:48] LABS: Alanine Aminotransferase 22 U/L (6-35); Albumin Level 4.7 g/dL (3.5-5.1); Alkaline Phosphatase 87 U/L (38-126); Anion Gap 7 mmol/L (4-12); Aspartate Amino Transferase 67 U/L (14-36); Blood Urea Nitrogen 14 mg/dL (7-17); Calcium 9.8 mg/dL (8.4-10.2); Carbon Dioxide 28 mmol/L (22-30); Chloride 104 mmol/L (98-107); Estimated Glomerular Filt Rate > 60; Glucose 107 mg/dL (65-110); Sodium 139 mmol/L (137-145); Total Protein 8.4 g/dL (6.3-8.2)
[2024-08-02 16:59] LABS: Iron 144 ug/dL (37-170)
[2024-08-02 17:21] LABS: Percent Iron Saturation 45 % (20-50)
[2024-08-02 17:54] LABS: Folic Acid 7.8 ng/mL (2.76->20)
[2024-08-05 10:49] LABS: Soluble Transferrin Receptor 1.04 mg/L (0.76-1.76)
[2024-08-05 14:38] LABS: Anti Nuclear Antibody Pattern Nuclear, Speckled; Anti Nuclear Antibody Titer 1:40 titer
[2024-08-05 15:13] LABS: Methylmalonic Acid 124 nmol/L (55-335)
== END 2024-08-02 14:02 | disposition home or self-care (01) ==
LOC: ANHLAB 14:02
PROVIDERS: PCP Nurse Practitioner Family; Visit Provider Internal Medicine Hematology & Oncology
DX: D64.9 Anemia, unspecified (principal); D70.9 Neutropenia, unspecified
CPT/HCPCS: 36415; 80053; 82607; 82728; 82746; 83540; 83550; 83921; 84238; 85025; 86038; 86039; 88184

== ENCOUNTER 2024-08-21 09:53 | Outpatient (CLI) | payer OTHER, SELFPAY ==
--- NOTE | ~2024-08-21 | US_ITS ---
Abdominal Sonogram: Real-time sonographic imaging of the abdomen was performed. Clinical History: Neutropenia Findings: The liver appears normal with no evidence of mass lesion or bile duct dilatation. Main por marco vein demonstrates normal direction of flow. The spleen is normal in size without evidence of foca l lesion. The gallbladder is well distended, and appears normal with no evidence of gallstone or wal l thickening. The common bile duct measures 5 mm. The visualized pancreas, aorta, and IVC are unrema rkable. The right kidney measures 10.3 cm in length and the left kidney measures 11.5 cm. There is no hydronephrosis or renal calculus. Impression: Unremarkable abdominal ultrasound. Reviewed, dictated and finalized at location . Impression: Unremarkable abdominal ultrasound.
== END 2024-08-21 09:54 | disposition home or self-care (01) ==
LOC: MICIMG 09:53
PROVIDERS: PCP Nurse Practitioner Family; Visit Provider Internal Medicine Hematology & Oncology
DX: D70.9 Neutropenia, unspecified (principal)
CPT/HCPCS: 76700